=== PATIENT | male | born 1940 | race Caucasian/White ===

== ENCOUNTER 2017-06-25 16:20 | Observation (INO) | payer MEDICARE ==
[2017-06-25] MEDS ORDERED: DEXTROSE 40% GEL 15 GM TUBE PO PRN (18:09)
[2017-06-25] MEDS ORDERED: GLUCAGON,HUMAN RECOMB 1 MG INJ IM PRN (18:09)
[2017-06-25] MEDS ORDERED: DEXTROSE 40% GEL 15 GM TUBE X 2 PO PRN (18:09)
[2017-06-25] MEDS ORDERED: DEXTROSE 50%-WATER SYRINGE 12.5 GM/25 ML DOSE IV PRN (18:09)
[2017-06-25] MEDS ORDERED: DEXTROSE 50%-WATER SYRINGE 25 GM/50 ML DOSE IV PRN (18:09)
[2017-06-25 18:51] LABS: ABSOLUTE EOSINOPHILS # (AUTO) 0.1 10^3/uL (0.0-0.6); ABSOLUTE LYMPHOCYTES (AUTO) 2.4 10^3/uL (0.5-4.7); ABSOLUTE MONOCYTES (AUTO) 0.7 10^3/uL (0.1-1.4); ABSOLUTE NEUT (AUTO) 3.1 10^3/uL (1.7-8.2); BASOPHILS % (AUTO) 0.8 % (0-2); EOSINOPHILS % (AUTO) 1.6 % (0-6); HEMATOCRIT 43.7 % (37.9-51.0); HEMOGLOBIN 15.3 g/dL (13.5-17.0); HGB HCT DIFFERENCE 2.2; LYMPHOCYTES % (AUTO) 36.9 % (13-45); MEAN CORPUSCULAR HEMOGLOBIN 33.3 pg (27.0-33.4); MEAN CORPUSCULAR HGB CONC 35.1 g/dL (32.0-36.0); MEAN CORPUSCULAR VOLUME 95 fl (80-97); MONOCYTES % (AUTO) 11.2 % (3-13); RED BLOOD COUNT 4.59 10^6/uL (4.35-5.55); RED CELL DISTRIBUTION WIDTH 13.3 % (11.5-14.0); SEGMENTED NEUTROPHILS % (AUTO) 49.5 % (42-78); WHITE BLOOD COUNT 6.4 10^3/uL (4.0-10.5)
[2017-06-25 19:08] LABS: ALANINE AMINOTRANSFERASE 41 U/L (21-72); ALBUMIN 4.3 g/dL (3.5-5.0); ALKALINE PHOSPHATASE 58 U/L (38-126); ANION GAP 14 (5-19); ASPARTATE AMINO TRANSFERASE 22 U/L (17-59); BILIRUBIN,DIRECT 0.3 mg/dL (0.0-0.4); BILIRUBIN,TOTAL 0.7 mg/dL (0.2-1.3); BLOOD UREA NITROGEN 22 mg/dL (7-20); CALCIUM 9.7 mg/dL (8.4-10.2); CARBON DIOXIDE 24 mmol/L (22-30); CHLORIDE 102 mmol/L (98-107); CREATININE RESULT 0.87 mg/dL (0.52-1.25); GLUCOSE 169 mg/dL (75-110); POTASSIUM 4.5 mmol/L (3.6-5.0); SODIUM 139.5 mmol/L (137-145); TOTAL PROTEIN 6.9 g/dL (6.3-8.2)
[2017-06-25 19:25] LABS: FREE T3 3.31 pg/mL (2.77-5.27)
[2017-06-25 19:39] LABS: THYROID STIMULATING HORMONE 1.91 uIU/mL (0.47-4.68)
[2017-06-25] MEDS ORDERED: GLIPIZIDE PO SCH (21:15)
[2017-06-25] MEDS ORDERED: CANAGLIFLOZIN PO SCH (21:15)
[2017-06-25] MEDS ORDERED: METFORMIN HCL PO SCH ×2 (21:15)
[2017-06-25] MEDS ORDERED: [UNRECOGNIZED DRUG - OTHER] PO SCH (21:15)
[2017-06-25] MEDS ORDERED: METFORMIN HCL 500 MG TABLET PO ONE (21:30)
[2017-06-25] MEDS ORDERED: GLIPIZIDE 5 MG TABLET PO ONE (21:30)
[2017-06-25] MEDS ORDERED: CLOPIDOGREL BISULFATE 75 MG TABLET PO ONE (21:30)
[2017-06-25] MEDS ORDERED: SERTRALINE HCL 50 MG TABLET PO ONE (21:30)
[2017-06-25] MEDS ORDERED: LOSARTAN POTASSIUM 50 MG TABLET PO ONE (21:30)
[2017-06-25] MEDS ORDERED: ASPIRIN 81 MG TABLET, ENT COATED PO ONE (21:30)
[2017-06-25] MEDS ORDERED: TAMSULOSIN HCL 0.4 MG CAP.SR.24H PO ONE (21:30)
[2017-06-25] MEDS ORDERED: ATORVASTATIN CALCIUM 10 MG TABLET PO SCH (22:00)
[2017-06-25] MEDS ORDERED: PIOGLITAZONE HCL 15 MG TABLET PO ONE (22:00)
[2017-06-25] MEDS ORDERED: INSULIN GLARGINE,HUM.REC.ANLOG 300 UNIT/3 ML INSULN.PEN SUBCUT SCH (22:00)
--- NOTE | 2017-06-26 04:46 | EKG REPORT ---
SEVERITY:- ABNORMAL ECG - SINUS RHYTHM ATRIAL PREMATURE COMPLEX NONSPECIFIC INTRAVENTRICULAR CONDUCTION DELAY INFERIOR INFARCT, AGE INDETERMINATE CONSIDER ANTERIOR INFARCT : Confirmed by: Nivia Carreon MD 26-Jun-2017 04:26:54
[2017-06-26] MEDS: INSULIN LISPRO 100 UNIT/ML 3 ML VIAL SUBCUT PRN ×3 (07:43→16:44)
--- NOTE | 2017-06-26 08:57 | RADIOLOGY REPORT (SQ) ---
EXAM DESCRIPTION: CT HEAD WITHOUT COMPLETED DATE/TIME: 06/25/2017 8:51 pm REASON FOR STUDY: vertigo A88.1 EPIDEMIC VERTIGO COMPARISON: 07/04/2013, 07/06/2016 CT brain TECHNIQUE: Axial images acquired through the brain without intravenous contrast. Images reviewed wi th bone, brain and subdural windows. Images stored on PACS. All CT scanners at this facility use dose modulation, iterative reconstruction, and/or weight based d osing when appropriate to reduce radiation dose to as low as reasonably achievable (ALARA). [facility]: Dose Right [facility]: CareDose [facility]: Dose Right [facility]: Teradose 4D [facility]: [employer] RADIATION DOSE: Up-to-date CT equipment and radiation dose reduction techniques were employed. CTDIv ol: 64.6 mGy. DLP: 1163 mGy-cm. mGy. LIMITATIONS: None. FINDINGS: VENTRICLES: Normal size and contour. CEREBRUM: No masses. No hemorrhage. No midline shift. No evidence for acute infarction. Spotty low attenuation in the bifrontal and biparietal deep periventricular white matter from chronic small ves jacob ischemic change. Small chronic lacunar infarct left lon. CEREBELLUM: No masses. No hemorrhage. No alteration of density. No evidence for acute infarction. EXTRAAXIAL SPACES: No fluid collections. No masses. ORBITS AND GLOBE: No intra- or extraconal masses. Normal contour of globe without masses. CALVARIUM: No fracture. PARANASAL SINUSES: No fluid or mucosal thickening. SOFT TISSUES: No mass or hematoma. OTHER: No other significant finding. IMPRESSION: No acute intracranial changes, stable mild small vessel ischemic change. EVIDENCE OF ACUTE STROKE: NO. COMMENT: Quality ID # [id number]: Final reports with documentation of one or more dose reduction techniques (e.g., Automated exposure control, adjustment of the mA and/or kV according to patient size, use of iterative reconstruction technique) TECHNICAL DOCUMENTATION: JOB ID: [id number] [email or web address]- All Rights Reserved
[2017-06-26] MEDS ORDERED: METFORMIN HCL 500 MG TABLET PO SCH ×2 (10:00→22:00)
[2017-06-26] MEDS ORDERED: GLIPIZIDE 5 MG TABLET PO SCH ×2 (10:00→22:00)
[2017-06-26] MEDS ORDERED: ASPIRIN 81 MG TABLET, ENT COATED PO SCH ×2 (10:00→22:00)
[2017-06-26] MEDS ORDERED: TAMSULOSIN HCL 0.4 MG CAP.SR.24H PO SCH ×2 (10:00→22:00)
[2017-06-26] MEDS ORDERED: PIOGLITAZONE HCL 15 MG TABLET PO SCH ×2 (10:00→22:00)
[2017-06-26] MEDS ORDERED: SERTRALINE HCL 50 MG TABLET PO SCH ×2 (10:00→22:00)
[2017-06-26] MEDS ORDERED: LOSARTAN POTASSIUM 50 MG TABLET PO SCH ×2 (10:00→22:00)
[2017-06-26] MEDS ORDERED: CLOPIDOGREL BISULFATE 75 MG TABLET PO SCH ×2 (10:00→22:00)
--- NOTE | 2017-06-26 13:48 | RADIOLOGY REPORT (SQ) ---
EXAM DESCRIPTION: CAROTID DOPPLER COMPLETED DATE/TIME: 06/26/2017 11:08 am REASON FOR STUDY: vertigo A88.1 EPIDEMIC VERTIGO COMPARISON: CT brain 06/25/2017, 07/06/2016 CT cervical spine 07/06/2016 TECHNIQUE: Grayscale ultrasound, Doppler velocity and spectra, and color Doppler images acquired of the extra-cranial carotid and vertebral arteries. Images stored on PACS. LIMITATIONS: None. FINDINGS: RIGHT CAROTID CCA Velocities: Within normal limits. ICA Velocities Peak systolic 0.81 m/s. End diastolic 0.24 m/s. Proximal ICA/CCA peak systolic ratio 1.4. Spectra normal. Mixed calcific and noncalcific plaque is present at the carotid bifurcation, shadowi ng the origin of the right internal carotid artery. Immediately distal to the shadowing plaque, [place] suggest against flow significant stenosis. LEFT CAROTID CCA Velocities: Within normal limits. ICA Velocities Peak systolic 0.89 m/s. End diastolic 0.20 m/s. Proximal ICA/CCA peak systolic ratio 1.2. Spectra normal. Mixed calcific and non calcific plaque is present at the carotid bifurcation, shadow ing the origin of the left internal carotid artery. Immediately distal to the shadowing plaque, [place] suggest against flow significant stenosis. VERTEBRAL ARTERIES: Antegrade flow. Normal waveforms. SUBCLAVIAN ARTERIES: Not evaluated OTHER: No other significant finding. IMPRESSION: NO HEMODYNAMICALLY SIGNIFICANT STENOSIS. COMMENT: Quality ID #[id number]: Velocity criteria are extrapolated from the diameter data as defined by t he Society of Radiologists in Ultrasound Consensus Conference. Radiology 2003: 229; 340-346. TECHNICAL DOCUMENTATION: JOB ID: [id number] [employer]- All Rights Reserved
[2017-06-26 18:24] VITALS: BP 141/64
--- NOTE | 2017-06-26 20:52 | PDOC H&P ---
History of Present Illness Admission Date/PCP: 06/25/17 16:20 MAGALI LOTT MD History of Present Illness: MYRANDA BARKSDALE is a 77 year old male, He was brought to the office by his for evaluation of severe dizziness associated with gait abnormality. Patient stated that the surrounding was spinning and he is not able to walk or perform any activities of daily living, he felt drunk. I was concerned about the probability of a brainstem infarction, he was admitted for observation and evaluation of his symptoms. MRI is more sensitive in diagnosing brainstem infarction, unfortunately MRI of the brain could not be done in this patient because he has a pacemaker which contraindicates MRI. CT scan of the brain was done ,did not show any acute infarction of the brain, carotid Doppler was done there was no evidence of any hemodynamically significant stenosis. Past Medical History Cardiac Medical History: Reports: Coronary Artery Disease, Myocardial Infarction , Hyperlipidema, Hypertension, Peripheral Vascular Disease Endocrine Medical History: Reports: Diabetes Mellitus Type 2 Psychiatric Medical History: Reports: Dementia, Depression Past Surgical History Past Surgical History: Reports: Coronary Artery Bypass Graft Social History Smoking Status: Former Smoker Frequency of Alcohol Use: None Hx Recreational Drug Use: No Drugs: None Hx Prescription Drug Abuse: No Family History Family History: CAD Parental Family History Reviewed: Yes Children Family History Reviewed: Yes Sibling(s) Family History Reviewed.: Yes Medication/Allergy Home Medications: Aspirin [Aspirin EC] 81 mg PO DAILY 06/25/17 Atorvastatin Calcium [Lipitor 10 mg Tablet] 10 mg PO QHS 06/25/17 Canagliflozin/Metformin HCl [Invokamet Xr 50-500 mg Tablet] 1 tab PO DAILY 06/25 Clopidogrel Bisulfate [Plavix 75 mg Tablet] 75 mg PO DAILY 06/25/17 Glipizide/Metformin HCl [Glipizide-Metformin 5-500 mg] 2 tab PO DAILY 06/25/17 Insulin Glargine,Hum.rec.anlog [Lantus Solostar] 25 unit SQ QHS 06/25/17 Losartan Potassium [Cozaar 50 mg Tablet] 50 mg PO DAILY 06/25/17 Pioglitazone HCl [Actos 15 mg Tablet] 15 mg PO DAILY 06/25/17 Sertraline HCl [Zoloft 50 mg Tablet] 50 mg PO DAILY 06/25/17 Tamsulosin HCl [Flomax 0.4 mg Cap.sr] 0.4 mg PO DAILY 06/25/17 Meclizine HCl [Antivert 25 mg Tablet] 25 mg PO Q6H PRN #120 tablet 06/26/17 Allergies/Adverse Reactions: No Known Allergies Allergy (Verified 02/26/15 16:31) Review of Systems Constitutional: PRESENT: weakness Eyes: ABSENT: visual disturbances Ears: ABSENT: hearing changes Cardiovascular: ABSENT: as per HPI, chest pain, dyspnea on exertion, edema, orthropnea, palpitations, other Respiratory: ABSENT: cough, hemoptysis Gastrointestinal: ABSENT: abdominal pain, constipation, diarrhea, hematemesis, hematochezia, nausea, vomiting Genitourinary: ABSENT: dysuria, hematuria Musculoskeletal: ABSENT: joint swelling Integumentary: ABSENT: rash, wounds Neurological: PRESENT: abnormal gait, dizziness, frequent falls, lack of coordination, memory loss, vertigo Hematologic/Lymphatic: ABSENT: easy bleeding, easy bruising, lymphadenopathy Physical Exam Vital Signs: Temp Pulse Resp BP Pulse Ox 97.4 F 58 L 16 141/64 H 95 06/26/17 18:21 06/26/17 18:21 06/26/17 18:21 06/26/17 18:21 06/26/17 18:21 Intake & Output 06/25/17 06/26/17 06/27/17 06:59 06:59 06:59 Intake Total 1015 1075 Output Total 900 1300 Balance 115 -225 Weight 106 kg General appearance: PRESENT: no acute distress, well-developed, well-nourished Head exam: PRESENT: atraumatic, normocephalic Eye exam: PRESENT: conjunctiva pink, EOMI, PERRLA Ear exam: PRESENT: normal external ear exam Mouth exam: PRESENT: moist, tongue midline Neck exam: PRESENT: full ROM Cardiovascular exam: PRESENT: RRR, +S1, +S2 Pulses: PRESENT: normal dorsalis pedis pul, +2 pedal pulses bilateral Vascular exam: PRESENT: normal capillary refill GI/Abdominal exam: PRESENT: normal bowel sounds, soft Rectal exam: PRESENT: deferred Neurological exam: PRESENT: alert, awake, oriented to person, oriented to place , oriented to time, oriented to situation, CN II-XII grossly intact Psychiatric exam: PRESENT: appropriate affect, normal mood Skin exam: PRESENT: dry, intact, warm Results Laboratory Results: 06/25/17 18:21 06/25/17 18:21 Impressions: Head CT 06/25/17 17:46 IMPRESSION: No acute intracranial changes, stable mild small vessel ischemic change. EVIDENCE OF ACUTE STROKE: NO. Carotid Doppler Study 06/26/17 00:00 IMPRESSION: NO HEMODYNAMICALLY SIGNIFICANT STENOSIS. Assessment & Plan - Diagnosis (1) Abnormality of gait and mobility Is this a current diagnosis for this admission?: Yes Plan: The CAT scan of the head did not show any acute CVA patient will need assistive devices to prevent fall including a wheelchair, a 4 wheeled walker with a seat (2) Dementia Qualifiers: Dementia type: unspecified type Dementia behavioral disturbance: without behavioral disturbance Qualified Code(s): F03.90 - Unspecified dementia without behavioral disturbance (3) Coronary artery disease Qualifiers: Coronary Disease-Associated Artery/Lesion type: [place] artery [place] vs. transplanted heart: [place] heart Associated angina: without angina Qualified Code(s): I25.10 - Atherosclerotic heart disease of [place] coronary artery without angina pectoris Is this a current diagnosis for this admission?: Yes (4) Peripheral vascular disease Is this a current diagnosis for this admission?: Yes
--- NOTE | 2017-06-26 20:56 | PDOC DISCHARGE SUMMARY ---
General - Admit/Disc Date/PCP Admission Date/Primary Care Provider: 06/25/17 16:20 MAGALI LOTT MD Discharge Date: 06/26/17 - Discharge Diagnosis (1) Abnormality of gait and mobility Is this a current diagnosis for this admission?: Yes (3) Coronary artery disease Is this a current diagnosis for this admission?: Yes (4) Peripheral vascular disease Is this a current diagnosis for this admission?: Yes - Additional Information Discharge Diet: Diabetic Discharge Activity: Activity As Tolerated Home Medications: Aspirin [Aspirin EC] 81 mg PO DAILY 06/25/17 Atorvastatin Calcium [Lipitor 10 mg Tablet] 10 mg PO QHS 06/25/17 Canagliflozin/Metformin HCl [Invokamet Xr 50-500 mg Tablet] 1 tab PO DAILY 06/25 Clopidogrel Bisulfate [Plavix 75 mg Tablet] 75 mg PO DAILY 06/25/17 Glipizide/Metformin HCl [Glipizide-Metformin 5-500 mg] 2 tab PO DAILY 06/25/17 Insulin Glargine,Hum.rec.anlog [Lantus Solostar] 25 unit SQ QHS 06/25/17 Losartan Potassium [Cozaar 50 mg Tablet] 50 mg PO DAILY 06/25/17 Pioglitazone HCl [Actos 15 mg Tablet] 15 mg PO DAILY 06/25/17 Sertraline HCl [Zoloft 50 mg Tablet] 50 mg PO DAILY 06/25/17 Tamsulosin HCl [Flomax 0.4 mg Cap.sr] 0.4 mg PO DAILY 06/25/17 Meclizine HCl [Antivert 25 mg Tablet] 25 mg PO Q6H PRN #120 tablet 06/26/17 History of Present Illness History of Present Illness: MYRANDA BARKSDALE is a 77 year old male, He was brought to the office by his for evaluation of severe dizziness associated with gait abnormality. Patient stated that the surrounding was spinning and he is not able to walk or perform any activities of daily living, he felt drunk. I was concerned about the probability of a brainstem infarction, he was admitted for observation and evaluation of his symptoms. MRI is more sensitive in diagnosing brainstem infarction, unfortunately MRI of the brain could not be done in this patient because he has a pacemaker which contraindicates MRI. CT scan of the brain was done ,did not show any acute infarction of the brain, carotid Doppler was done there was no evidence of any hemodynamically significant stenosis. Hospital Course Hospital Course: Patient was admitted for evaluation of gait abnormality CT scan of the head was negative, patient was prescribed assistive devices including a wheelchair walker with a seat ,home health for physical therapy.He was given prescription for meclizine for the vertigo Physical Exam Vital Signs: Temp Pulse Resp BP Pulse Ox 97.4 F 58 L 16 141/64 H 95 06/26/17 18:21 06/26/17 18:21 06/26/17 18:21 06/26/17 18:21 06/26/17 18:21 Intake & Output 06/25/17 06/26/17 06/27/17 06:59 06:59 06:59 Intake Total 1015 1075 Output Total 900 1300 Balance 115 -225 Weight 106 kg General appearance: PRESENT: no acute distress Eye exam: PRESENT: PERRLA Respiratory exam: PRESENT: clear to auscultation farnaz Cardiovascular exam: PRESENT: +S1, +S2 GI/Abdominal exam: PRESENT: soft Neurological exam: PRESENT: alert, CN II-XII grossly intact Results Laboratory Results: 06/25/17 18:21 06/25/17 18:21 Impressions: Head CT 06/25/17 17:46 IMPRESSION: No acute intracranial changes, stable mild small vessel ischemic change. EVIDENCE OF ACUTE STROKE: NO. Carotid Doppler Study 06/26/17 00:00 IMPRESSION: NO HEMODYNAMICALLY SIGNIFICANT STENOSIS.
[2017-06-27] MEDS ORDERED: INSULIN GLARGINE,HUM.REC.ANLOG 300 UNIT/3 ML INSULN.PEN SUBCUT SCH (08:00)
== END 2017-06-26 18:45 | disposition home health service (06) ==
LOC: 3N 16:20
PROVIDERS: ADMIT Internal Medicine; ATTEND Internal Medicine
DX: R27.9 Unspecified lack of coordination (principal); I25.10 Atherosclerotic heart disease of native coronary artery without angina pectoris; I73.9 Peripheral vascular disease, unspecified; I25.2 Old myocardial infarction; E78.5 Hyperlipidemia, unspecified; R53.1 Weakness; R29.6 Repeated falls; F03.90 Unspecified dementia, unspecified severity, without behavioral disturbance, psychotic disturbance, mood disturbance, and anxiety; Z79.899 Other long term (current) drug therapy; Z95.0 Presence of cardiac pacemaker; Z95.1 Presence of aortocoronary bypass graft; Z82.49 Family history of ischemic heart disease and other diseases of the circulatory system; Z87.891 Personal history of nicotine dependence; Z79.02 Long term (current) use of antithrombotics/antiplatelets; Z79.82 Long term (current) use of aspirin; Z79.4 Long term (current) use of insulin
CPT/HCPCS: 36415; 84439; 82962; 84443; 85025; 80053; 84481; 83036; 93880; 70450; 93005; 93010; G0378 ×2; A9270 ×11; J1815; J3490

== ENCOUNTER 2017-06-27 17:48 | Inpatient (IN) | payer MEDICARE ==
[~2017-06-27 17:48] MED LIST: EPINEPHRINE INJ 1 MG/10 ML DISP.SYRIN ONE
[2017-06-27] MEDS ORDERED: ONDANSETRON 4 MG TAB.RAPDIS SL ONE (18:24)
--- NOTE | 2017-06-27 18:26 | ER Document Report ---
ED Medical Screen (RME) - General Chief Complaint: Weakness Stated Complaint: VOMITING, WEAKNESS Time Seen by Provider: 06/27/17 18:04 Mode of Arrival: Wheelchair Information source: Patient, Relative TRAVEL OUTSIDE OF THE [place] IN LAST 30 DAYS: No - HPI Patient complains to provider of: dizziness, nausea, vomiting Notes: 06/27/17 18:28 Patient is a 77-year-old male who is brought to the emergency room by EMS for ongoing dizziness with nausea and vomiting, he was admitted to the hospital yesterday for evaluation of this, had normal CT head and carotid Doppler findings and was discharged home with meclizine, his symptoms have worsened, in triage area noted a slight left-sided facial droop which his reports is new and she had not noticed prior to me pointing it out, therefore patient was upgraded to a triage level 2 and made a stroke alert - Related Data Allergies/Adverse Reactions: No Known Allergies Allergy (Verified 06/27/17 17:53) Past Medical History - Past Medical History Cardiac Medical History: Reports: Hx Coronary Artery Disease, Hx Heart Attack, Hx Hypercholesterolemia, Hx Hypertension, Hx Peripheral Vascular Disease Endocrine Medical History: Reports: Hx Diabetes Mellitus Type 2 Renal/ Medical History: Reports: Hx Kidney Stones. Denies: Hx Peritoneal Dialysis Psychiatric Medical History: Reports: Hx Dementia, Hx Depression Past Surgical History: Reports: Hx Coronary Artery Bypass Graft - Immunizations Immunizations up to date: Yes Hx Diphtheria, Pertussis, Tetanus Vaccination: - unk Physical Exam - Vital signs Vitals: Temp Pulse Resp BP Pulse Ox 97.7 F 61 22 H 168/53 H 98 06/27/17 17:54 06/27/17 17:54 06/27/17 17:54 06/27/17 17:54 06/27/17 17:54 Course - Vital Signs Vital signs: Temp Pulse Resp BP Pulse Ox 97.7 F 61 22 H 168/53 H 98 06/27/17 17:54 06/27/17 17:54 06/27/17 17:54 06/27/17 17:54 06/27/17 17:54
--- NOTE | 2017-06-27 18:56 | RADIOLOGY REPORT (SQ) ---
EXAM DESCRIPTION: CT HEAD WITHOUT COMPLETED DATE/TIME: 06/27/2017 6:36 pm REASON FOR STUDY: left facial droop COMPARISON: 06/25/2017 TECHNIQUE: Axial images acquired through the brain without intravenous contrast. Images reviewed wi th bone, brain and subdural windows. Images stored on PACS. All CT scanners at this facility use dose modulation, iterative reconstruction, and/or weight based d osing when appropriate to reduce radiation dose to as low as reasonably achievable (ALARA). [facility]: Dose Right [facility]: CareDose [facility]: Dose Right [facility]: Teradose 4D [facility]: [employer] RADIATION DOSE: Up-to-date CT equipment and radiation dose reduction techniques were employed. CTDIv ol: 64.6 mGy. DLP: 1034 mGy-cm. mGy. LIMITATIONS: None. FINDINGS: VENTRICLES: Prominent ventricles secondary to involutional atrophy. CEREBRUM: No masses. No hemorrhage. No midline shift. No evidence for acute infarction. Normal gra y/white matter differentiation. No areas of low density in the white matter. Cortical atrophy is pre sent. CEREBELLUM: No masses. No hemorrhage. No alteration of density. No evidence for acute infarction. EXTRAAXIAL SPACES: No fluid collections. No masses. ORBITS AND GLOBE: No intra- or extraconal masses. Normal contour of globe without masses. CALVARIUM: No fracture. PARANASAL SINUSES: No fluid or mucosal thickening. SOFT TISSUES: No mass or hematoma. OTHER: No other significant finding. IMPRESSION: Involutional changes of aging with no acute intracranial pathology. EVIDENCE OF ACUTE STROKE: NO. COMMENT: Findings were discussed with the ordering physician at 1850 hours on this date. Quality ID # [id number]: Final reports with documentation of one or more dose reduction techniques (e.g., Au tomated exposure control, adjustment of the mA and/or kV according to patient size, use of iterative reconstruction technique) TECHNICAL DOCUMENTATION: JOB ID: [id number] [email or web address]- All Rights Reserved
--- NOTE | 2017-06-27 18:57 | RADIOLOGY REPORT (SQ) ---
EXAM DESCRIPTION: CHEST SINGLE VIEW COMPLETED DATE/TIME: 06/27/2017 6:41 pm REASON FOR STUDY: left facial droop COMPARISON: 07/06/2016 EXAM PARAMETERS: NUMBER OF VIEWS: One view. TECHNIQUE: Single frontal radiographic view of the chest acquired. RADIATION DOSE: NA LIMITATIONS: None. FINDINGS: LUNGS AND PLEURA: Low lung volumes. No infiltrate or effusion. No mass. MEDIASTINUM AND HILAR STRUCTURES: No masses. Contour normal. HEART AND VASCULAR STRUCTURES: Cardiomegaly with pulmonary vascular congestion but no pulmonary edema . BONES: No acute findings. HARDWARE: Pacemaker. OTHER: No other significant finding. IMPRESSION: Cardiomegaly without CHF. TECHNICAL DOCUMENTATION: JOB ID: [id number]
[2017-06-27 19:11] LABS: PARTIAL THROMBOPLASTIN TIME 27.1 SEC (23.5-35.8)
[2017-06-27 19:19] LABS: ALANINE AMINOTRANSFERASE 37 U/L (21-72); ALBUMIN 4.9 g/dL (3.5-5.0); ALKALINE PHOSPHATASE 74 U/L (38-126); ASPARTATE AMINO TRANSFERASE 30 U/L (17-59); BILIRUBIN,DIRECT 0.4 mg/dL (0.0-0.4); BILIRUBIN,TOTAL 1.2 mg/dL (0.2-1.3); BLOOD UREA NITROGEN 23 mg/dL (7-20); CALCIUM 10.5 mg/dL (8.4-10.2); CHLORIDE 103 mmol/L (98-107); CREATINE KINASE 116 U/L (55-170); CREATININE RESULT 0.93 mg/dL (0.52-1.25); GLUCOSE 211 mg/dL (75-110); POTASSIUM 4.5 mmol/L (3.6-5.0)
[2017-06-27 19:26] LABS: PROTHROMBIN TIME 13.3 SEC (11.4-15.4)
[2017-06-27 19:28] LABS: CARBON DIOXIDE 15 mmol/L (22-30); SODIUM 138.1 mmol/L (137-145)
[2017-06-27 19:31] LABS: CREATINE KINASE MB 0.64 ng/mL (<4.55)
[2017-06-27 19:33] LABS: ANION GAP 20 (5-19); TROPONIN I < 0.012 ng/mL
[2017-06-27 19:39] LABS: ABSOLUTE MONOCYTES (AUTO) 0.7 10^3/uL (0.1-1.4); ABSOLUTE NEUT (AUTO) 7.1 10^3/uL (1.7-8.2); BASOPHILS % (AUTO) 0.3 % (0-2); EOSINOPHILS % (AUTO) 0.3 % (0-6); HEMOGLOBIN 17.1 g/dL (13.5-17.0); HGB HCT DIFFERENCE 1.3; MEAN CORPUSCULAR HEMOGLOBIN 32.4 pg (27.0-33.4); MEAN CORPUSCULAR HGB CONC 34.2 g/dL (32.0-36.0); MEAN CORPUSCULAR VOLUME 95 fl (80-97); MONOCYTES % (AUTO) 6.8 % (3-13); RED BLOOD COUNT 5.28 10^6/uL (4.35-5.55); RED CELL DISTRIBUTION WIDTH 13.3 % (11.5-14.0); SEGMENTED NEUTROPHILS % (AUTO) 72.6 % (42-78); WHITE BLOOD COUNT 9.8 10^3/uL (4.0-10.5)
--- NOTE | 2017-06-27 20:07 | ER Document Report ---
ED General - General Chief Complaint: Weakness Stated Complaint: VOMITING, WEAKNESS Time Seen by Provider: 06/27/17 18:04 Mode of Arrival: Wheelchair Cannot obtain history due to: Dementia Notes: Patient is a 77-year-old male with several months of persistent vertigo who again presents today with symptoms of vertigo, nausea, vomiting and gait instability. Patient was just discharged from the hospital yesterday for the same complaint. He has had persistence of symptoms over the last several months and has unfortunately been unable to have an MRI due to a pacemaker. Patient states that he has been trying meclizine at home without any improvement. The patient himself is a very poor historian secondary to dementia but his at the bedside reports that normally the patient is at least able to ambulate with assistance but he has been completely unable to walk today. He is also been unable to tolerate oral intake apparently secondary to nausea from the vertigo. He has denied any new or different symptoms today other than that the vertigo is worse than normal. History is otherwise limited secondary to patient's dementia. TRAVEL OUTSIDE OF THE [place] IN LAST 30 DAYS: No - Related Data Allergies/Adverse Reactions: No Known Allergies Allergy (Verified 06/27/17 17:53) Home Medications: Current Home Medications Aspirin [Aspirin 81 mg Chewable Tablet] 81 mg PO QPM 06/27/17 [History] Atorvastatin Calcium [Lipitor 10 mg Tablet] 10 mg PO QPM 06/27/17 [History] Canagliflozin/Metformin HCl [Invokamet Xr 50-500 mg Tablet] 1 each PO QAM [History] Clopidogrel Bisulfate [Plavix 75 mg Tablet] 75 mg PO QPM 06/27/17 [History] Glipizide/Metformin HCl [Glipizide-Metformin 5-500 Mg] 2 each PO QPM 06/27/17 [ History] Insulin Glargine,Hum.rec.anlog [Lantus Solostar] 25 unit SQ QAM 06/27/17 [ History] Losartan Potassium [Cozaar 50 mg Tablet] 50 mg PO QPM 06/27/17 [History] Meclizine HCl [Antivert 25 mg Tablet] 25 mg PO Q6HP PRN 06/27/17 [History] Pioglitazone HCl [Actos 15 mg Tablet] 15 mg PO QPM 06/27/17 [History] Sertraline HCl [Zoloft 50 mg Tablet] 50 mg PO QPM 06/27/17 [History] Tamsulosin HCl [Flomax 0.4 mg Cap.sr] 0.4 mg PO QPM 06/27/17 [History] Triamcinolone Acetonide [Triamcinolone Acetonide] 1 applic TOP DAILYP PRN [History] Past Medical History - General Information source: Patient, Relative - Social History Smoking Status: Never Smoker Frequency of alcohol use: None Drug Abuse: None Lives with: Spouse/Significant other Family History: Reviewed & Not Pertinent, CAD - Past Medical History Cardiac Medical History: Reports: Hx Coronary Artery Disease, Hx Heart Attack, Hx Hypercholesterolemia, Hx Hypertension, Hx Peripheral Vascular Disease Endocrine Medical History: Reports: Hx Diabetes Mellitus Type 2 Renal/ Medical History: Reports: Hx Kidney Stones. Denies: Hx Peritoneal Dialysis Psychiatric Medical History: Reports: Hx Dementia, Hx Depression Past Surgical History: Reports: Hx Coronary Artery Bypass Graft - Immunizations Immunizations up to date: Yes Hx Diphtheria, Pertussis, Tetanus Vaccination: - unk Hx Pneumococcal Vaccination: 01/23/12 Review of Systems - Review of Systems Notes: Constitutional: Negative for fever. HENT: Negative for sore throat. Eyes: Negative for visual changes. Cardiovascular: Negative for chest pain. Respiratory: Negative for shortness of breath. Gastrointestinal: Positive for nausea and vomiting Genitourinary: Negative for dysuria. Musculoskeletal: Negative for back pain. Skin: Negative for rash. Neurological: Positive for vertigo 10 point ROS negative except as marked above and in HPI. Physical Exam - Vital signs Vitals: Temp Pulse Resp BP Pulse Ox 97.7 F 61 22 H 168/53 H 98 06/27/17 17:54 06/27/17 17:54 06/27/17 17:54 06/27/17 17:54 06/27/17 17:54 Interpretation: Hypertensive Notes: PHYSICAL EXAMINATION: GENERAL: Well-appearing, well-nourished and in no acute distress. HEAD: Atraumatic, normocephalic. EYES: Pupils equal round and reactive to light, extraocular movements intact, sclera anicteric, conjunctiva are normal. ENT: nares patent, oropharynx clear without exudates. Moist mucous membranes. NECK: Normal range of motion, supple without lymphadenopathy LUNGS: Breath sounds clear to auscultation bilaterally and equal. No wheezes rales or rhonchi. HEART: Regular rate and rhythm without murmurs ABDOMEN: Soft, nontender, normoactive bowel sounds. No guarding, no rebound. No masses appreciated. EXTREMITIES: Normal range of motion, no pitting or edema. No cyanosis. NEUROLOGICAL: Face symmetric. Tongue protrudes midline. Extraocular motions intact. Pupils are 2 mm and equally reactive. Normal speech, unable to even stand up next to the bed without assistance. 5 out of 5 strength in both the distal and proximal upper and lower extremities bilaterally. Sensation is grossly intact throughout. Dysmetria with both finger to nose testing and heel to decker testing. PSYCH: Alert, oriented to person only SKIN: Warm, Dry, normal turgor, no rashes or lesions noted. Course - Re-evaluation Re-evalutation: 06/27/17 20:06 Patient presents with ongoing ataxia, fails finger to nose testing bilaterally, unable to ambulate and having vomiting secondary to vertigo. Patient was just discharged from the hospital yesterday and apparently became worse today. However his symptoms been ongoing chronically for at least 4 months. I suspect the patient has had a cerebellar stroke and we cannot appropriately visualize this using CT imaging given the poor visualization of the posterior fossa. Unfortunately patient cannot have an MRI due to a pacemaker that is noncompatible. However given the patient is not able to ambulate or tolerate oral intake even water at this time and his is only one who is at home with him caring for him, I do not believe it is safe for patient to be discharged home. I believe that he does require hospitalization and transfer to a [facility] facility for long-term rehabilitation and consideration of long-term placement. Will discuss with Dr. Campbell for admission - Vital Signs Vital signs: Temp Pulse Resp BP Pulse Ox 97.7 F 65 19 125/65 96 06/27/17 17:54 06/27/17 21:00 06/27/17 23:00 06/27/17 22:41 06/27/17 23:00 - Laboratory Result Diagrams: 06/27/17 18:45 06/27/17 18:45 Laboratory results interpreted by me: 06/27/17 06/27/17 18:45 18:45 Hgb 17.1 H Carbon Dioxide 15 L Anion Gap 20 H BUN 23 H Glucose 211 H Calcium 10.5 H - Diagnostic Test Radiology reviewed: Image reviewed, Reports reviewed Radiology results interpreted by me: 06/28/17 02:04 CT head: No acute intracranial bleed - EKG Interpretation by Me Additional EKG results interpreted by me: 06/28/17 02:05 Sinus rhythm. Rate 63. No ST elevations or depressions. QTC is 426. Discharge - Discharge Clinical Impression: Abnormality of gait and mobility, Vertigo, Persistent vomiting Condition: Fair Disposition: ADMITTED INPATIENT Admitting Provider: [facility] Unit Admitted: [facility]
[2017-06-27] MEDS ORDERED: MECLIZINE HCL 25 MG TABLET PO PRN (21:51)
[2017-06-27] MEDS ORDERED: TRIAMCINOLONE ACETONIDE TOP PRN (21:51)
[2017-06-27] MEDS ORDERED: DEXTROSE 40% GEL 15 GM TUBE PO PRN ×2 (21:53)
[2017-06-27] MEDS ORDERED: GLUCAGON,HUMAN RECOMB 1 MG INJ IM PRN (21:53)
[2017-06-27] MEDS ORDERED: DEXTROSE 50%-WATER 25 GM/50 ML DISP.SYRIN IV PRN ×2 (21:53)
[2017-06-27] MEDS ORDERED: ASPIRIN 81 MG TABLET, CHEWABLE PO ONE (22:00)
[2017-06-28] MEDS ORDERED: ONDANSETRON HCL INJ/PF 4 MG/2 ML SDV ONE (04:14)
[2017-06-28] MEDS ORDERED: ONDANSETRON HCL INJ/PF 4 MG/2 ML SDV IV PRN (04:14)
[2017-06-28] MEDS ORDERED: CANAGLIFLOZIN PO SCH (08:00)
[2017-06-28] MEDS ORDERED: METFORMIN HCL PO SCH (08:00)
[2017-06-28] MEDS ORDERED: [UNRECOGNIZED DRUG - OTHER] PO SCH (08:00)
--- NOTE | 2017-06-28 09:03 | EKG REPORT ---
SEVERITY:- ABNORMAL ECG - SINUS RHYTHM MULTIPLE ATRIAL PREMATURE COMPLEXES NONSPECIFIC INTRAVENTRICULAR CONDUCTION DELAY INFERIOR INFARCT, AGE INDETERMINATE ANTERIOR INFARCT, AGE INDETERMINATE : Confirmed by: Nivia Carreon MD 28-Jun-2017 09:03:22
[2017-06-28] MEDS: ENOXAPARIN SODIUM INJ 40 MG/0.4 ML DISP.SYRIN SUBCUT SCH (09:48)
[2017-06-28] MEDS: INSULIN GLARGINE,HUM.REC.ANLOG 300 UNIT/3 ML INSULN.PEN SUBCUT SCH (09:56)
[2017-06-28] MEDS ORDERED: ENOXAPARIN SODIUM INJ 30 MG/0.3 ML DISP.SYRIN SUBCUT ONE (10:00)
[2017-06-28 10:14] LABS: CHOLESTEROL 301.31 mg/dL (0-200); Direct HDL 46 mg/dL (>40); TRIGLYCERIDES 238 mg/dL (<150)
[2017-06-28 10:24] LABS: DIRECT LDL 233 mg/dL (<100)
[2017-06-28 10:32] LABS: VLDL CHOLESTEROL 47.6 mg/dL (10-31)
[2017-06-28] MEDS: INSULIN LISPRO 100 UNIT/ML 3 ML VIAL SUBCUT PRN ×2 (13:13→17:25)
[2017-06-28] MEDS: PIOGLITAZONE HCL 15 MG TABLET PO SCH (17:22)
[2017-06-28] MEDS: SERTRALINE HCL 50 MG TABLET PO SCH (17:25)
[2017-06-28] MEDS: LOSARTAN POTASSIUM 50 MG TABLET PO SCH (17:25)
[2017-06-28] MEDS: TAMSULOSIN HCL 0.4 MG CAP.SR.24H PO SCH (17:25)
[2017-06-28] MEDS: ATORVASTATIN CALCIUM 10 MG TABLET PO SCH (17:26)
[2017-06-28] MEDS: ASPIRIN 81 MG TABLET, CHEWABLE PO SCH (17:26)
--- NOTE | 2017-06-28 20:37 | PDOC H&P ---
History of Present Illness Admission Date/PCP: 06/27/17 20:51 MAGALI LOTT MD History of Present Illness: MYRANDA BARKSDALE is a 77 year old male.He came to the emergency room, for evaluation of symptoms and signs of ataxia with gait impairment, blurred vision , altered hand coordination and tremor with movement patient symptom is progressive and symmetrical the onset is subacute in nature there is associated vertigo. He was brought to the emergency room by his spouse because this past who no longer take care of him is constantly falling and is not able to keep any food down with differential vomiting. I Admitted this patient initially on 06/26/2017 directly from the office when he presented with gait abnormality, vertigo, and ataxia, I suspected cerebellar infarction, he was admitted into the hospital for evaluation I did a CAT scan of the brain and it was negative for any acute infarction or any space-occupying lesion. MRI is more sensitive in diagnosing cerebellar infarct especially in the posterior cerebellum but patient have a pacemaker and MRI could not be obtained. He was evaluated and discharged home at the time he was admitted for observation. The other differential diagnosis needs to be from cerebellar ataxia is vertiginous ataxia a gait disorder associated with severe degree of dizziness, lightheadedness or the perception of movements because he had these symptoms of vertigo this seems to be more suggestive of vertiginous ataxia.. Past Medical History Cardiac Medical History: Reports: Coronary Artery Disease, Myocardial Infarction , Hyperlipidema, Hypertension, Peripheral Vascular Disease Endocrine Medical History: Reports: Diabetes Mellitus Type 2 Psychiatric Medical History: Reports: Dementia, Depression Past Surgical History Past Surgical History: Reports: Coronary Artery Bypass Graft Social History Lives with: Spouse/Significant other Smoking Status: Former Smoker Frequency of Alcohol Use: None Hx Recreational Drug Use: No Drugs: None Hx Prescription Drug Abuse: No Family History Family History: Reviewed & Not Pertinent, CAD Parental Family History Reviewed: Yes Children Family History Reviewed: Yes Sibling(s) Family History Reviewed.: Yes Medication/Allergy Home Medications: Aspirin [Aspirin 81 mg Chewable Tablet] 81 mg PO QPM 06/27/17 Atorvastatin Calcium [Lipitor 10 mg Tablet] 10 mg PO QPM 06/27/17 Canagliflozin/Metformin HCl [Invokamet Xr 50-500 mg Tablet] 1 each PO QAM Clopidogrel Bisulfate [Plavix 75 mg Tablet] 75 mg PO QPM 06/27/17 Glipizide/Metformin HCl [Glipizide-Metformin 5-500 Mg] 2 each PO QPM 06/27/17 Insulin Glargine,Hum.rec.anlog [Lantus Solostar] 25 unit SQ QAM 06/27/17 Losartan Potassium [Cozaar 50 mg Tablet] 50 mg PO QPM 06/27/17 Meclizine HCl [Antivert 25 mg Tablet] 25 mg PO Q6HP PRN 06/27/17 Pioglitazone HCl [Actos 15 mg Tablet] 15 mg PO QPM 06/27/17 Sertraline HCl [Zoloft 50 mg Tablet] 50 mg PO QPM 06/27/17 Tamsulosin HCl [Flomax 0.4 mg Cap.sr] 0.4 mg PO QPM 06/27/17 Triamcinolone Acetonide [Triamcinolone Acetonide] 1 applic TOP DAILYP PRN Allergies/Adverse Reactions: No Known Allergies Allergy (Verified 06/27/17 17:53) Review of Systems Constitutional: PRESENT: headache(s), weakness Eyes: ABSENT: visual disturbances Ears: ABSENT: hearing changes Nose, Mouth, and Throat: ABSENT: as per HPI, headache(s), mouth pain, sore throat, vertigo, other Cardiovascular: ABSENT: as per HPI, chest pain, dyspnea on exertion, edema, orthropnea, palpitations, other Respiratory: ABSENT: cough, hemoptysis Gastrointestinal: PRESENT: vomiting Genitourinary: ABSENT: dysuria, hematuria Musculoskeletal: ABSENT: joint swelling Integumentary: ABSENT: rash, wounds Neurological: PRESENT: abnormal gait, abnormal speech, confusion, dizziness, frequent falls, lack of coordination, memory loss, paresthesias, tingling, tremor(s), vertigo, weakness Psychiatric: ABSENT: anxiety, depression, homidical ideation, suicidal ideation Endocrine: ABSENT: cold intolerance, heat intolerance, menstrual abnormalities, polydipsia, polyuria Hematologic/Lymphatic: ABSENT: easy bleeding, easy bruising, lymphadenopathy Physical Exam Vital Signs: Temp Pulse Resp BP Pulse Ox 97.7 F 66 16 110/62 99 06/28/17 15:01 06/28/17 16:00 06/28/17 16:00 06/28/17 16:00 06/28/17 16:00 Intake & Output 10/01/0806/28/17 06/29/17 06:59 06:59 06:59 Intake Total 300 Output Total 500 Balance -200 Weight 92.5 kg 92 kg General appearance: PRESENT: mild distress Head exam: PRESENT: atraumatic, normocephalic Eye exam: PRESENT: conjunctiva pink, EOMI, PERRLA Ear exam: PRESENT: normal external ear exam Mouth exam: PRESENT: moist, tongue midline Neck exam: PRESENT: full ROM Cardiovascular exam: PRESENT: RRR, +S1, +S2, systolic murmur Pulses: PRESENT: normal dorsalis pedis pul, +2 pedal pulses bilateral Vascular exam: PRESENT: normal capillary refill GI/Abdominal exam: PRESENT: normal bowel sounds, soft Rectal exam: PRESENT: deferred Neurological exam: PRESENT: alert, reflexes normal, abnormal gait, ataxia, motor sensory deficit - He has weakness of the lower extremities the power of the left leg is 3 /5 Psychiatric exam: PRESENT: appropriate affect, normal mood Skin exam: PRESENT: dry, intact, warm Results Laboratory Results: 06/28/17 09:44 Triglycerides 238 H Cholesterol 301.31 H LDL Cholesterol Direct 233 H VLDL Cholesterol 47.6 H HDL Cholesterol 46 Impressions: Chest X-Ray 06/27/17 18:24 IMPRESSION: Cardiomegaly without CHF. Head CT 06/27/17 18:24 IMPRESSION: Involutional changes of aging with no acute intracranial pathology. EVIDENCE OF ACUTE STROKE: NO. Assessment & Plan - Diagnosis (1) Cerebellar infarction Is this a current diagnosis for this admission?: Yes Plan: Patient symptoms and signs suggest cerebellar infarction, unfortunately MRI of the brain could not be done because he has a pacemaker. CT scan of the head was done, that was negative for any acute pathology. Patient have focal, lateralizing signs of weakness, gait abnormality tremors poor coordination ataxia. He be managed as a case of cerebellar infarction because clinically it is highly suggestive. (4) Coronary artery disease Qualifiers: Coronary Disease-Associated Artery/Lesion type: [place] artery [place] vs. transplanted heart: [place] heart Associated angina: without angina Qualified Code(s): I25.10 - Atherosclerotic heart disease of [place] coronary artery without angina pectoris (6) Type 2 diabetes mellitus Qualifiers: Diabetes mellitus complication status: without complication Diabetes mellitus longterm insulin use: with adjunct faculty for medical terminology use Qualified Code(s): E11.9 - Type 2 diabetes mellitus without complications Is this a current diagnosis for this admission?: Yes
[2017-06-28 22:05] LABS: CREATINE KINASE MB 1.17 ng/mL (<4.55)
[2017-06-28 22:06] LABS: TROPONIN I < 0.012 ng/mL
[2017-06-29 05:13] LABS: HEMOGLOBIN 15.7 g/dL (13.5-17.0); HGB HCT DIFFERENCE 2.1; MEAN CORPUSCULAR HEMOGLOBIN 33.3 pg (27.0-33.4); MEAN CORPUSCULAR VOLUME 95 fl (80-97); RED BLOOD COUNT 4.73 10^6/uL (4.35-5.55); RED CELL DISTRIBUTION WIDTH 13.5 % (11.5-14.0); WHITE BLOOD COUNT 9.4 10^3/uL (4.0-10.5)
[2017-06-29 05:33] LABS: ALANINE AMINOTRANSFERASE 43 U/L (21-72); ALKALINE PHOSPHATASE 58 U/L (38-126); ANION GAP 12 (5-19); ASPARTATE AMINO TRANSFERASE 25 U/L (17-59); BILIRUBIN,DIRECT 0.5 mg/dL (0.0-0.4); BILIRUBIN,TOTAL 1.4 mg/dL (0.2-1.3); BLOOD UREA NITROGEN 23 mg/dL (7-20); CALCIUM 9.6 mg/dL (8.4-10.2); CARBON DIOXIDE 18 mmol/L (22-30); CHLORIDE 107 mmol/L (98-107); CHOLESTEROL 236.28 mg/dL (0-200); CREATININE RESULT 0.91 mg/dL (0.52-1.25); Direct HDL 33 mg/dL (>40); GLUCOSE 182 mg/dL (75-110); POTASSIUM 3.7 mmol/L (3.6-5.0); SODIUM 136.5 mmol/L (137-145); TOTAL PROTEIN 6.8 g/dL (6.3-8.2); TRIGLYCERIDES 263 mg/dL (<150)
[2017-06-29 05:44] LABS: DIRECT LDL 173 mg/dL (<100)
[2017-06-29 05:47] LABS: VLDL CHOLESTEROL 52.6 mg/dL (10-31)
[2017-06-29 07:40] LABS: APPEARANCE,URINE CLEAR; BILIRUBIN,URINE NEGATIVE (NEGATIVE); GLUCOSE, URINE >=500 mg/dL (NEGATIVE); KETONES,URINE TRACE mg/dL (NEGATIVE); LEUKOCYTE ESTERASE,URINE NEGATIVE (NEGATIVE); NITRITE,URINE NEGATIVE (NEGATIVE); PROTEIN,URINE NEGATIVE (NEGATIVE); URINE SPECIFIC GRAVITY 1.016; UROBILINOGEN,URINE NEGATIVE mg/dL (<2.0)
[2017-06-29] MEDS: INSULIN GLARGINE,HUM.REC.ANLOG 300 UNIT/3 ML INSULN.PEN SUBCUT SCH (08:03)
[2017-06-29] MEDS: INSULIN LISPRO 100 UNIT/ML 3 ML VIAL SUBCUT PRN ×3 (08:03→23:01)
[2017-06-29] MEDS ORDERED: ENOXAPARIN SODIUM INJ 30 MG/0.3 ML DISP.SYRIN SUBCUT SCH (10:00)
[2017-06-29] MEDS: ENOXAPARIN SODIUM INJ 40 MG/0.4 ML DISP.SYRIN SUBCUT SCH ×2 (11:33→11:34)
[2017-06-29] MEDS: SERTRALINE HCL 50 MG TABLET PO SCH (17:55)
[2017-06-29] MEDS: ATORVASTATIN CALCIUM 10 MG TABLET PO SCH (17:55)
[2017-06-29] MEDS: LOSARTAN POTASSIUM 50 MG TABLET PO SCH (17:55)
[2017-06-29] MEDS: TAMSULOSIN HCL 0.4 MG CAP.SR.24H PO SCH (17:55)
[2017-06-29] MEDS: ASPIRIN 81 MG TABLET, CHEWABLE PO SCH (17:55)
[2017-06-29] MEDS: PIOGLITAZONE HCL 15 MG TABLET PO SCH (17:56)
--- NOTE | 2017-06-29 23:47 | PDOC PROGRESS REPORT ---
Subjective Progress Note for:: 06/29/17 Subjective:: Patient was seen by the bedside was admitted because of cerebellar infarction this could not be confirmed on MRI because he has a pacemaker but the symptoms and signs suggest cerebellar infarction presently being managed according to stroke protocol.He was seen by physical therapy Physical Exam Vital Signs: Temp Pulse Resp BP Pulse Ox 98.2 F 60 16 140/66 H 96 06/29/17 19:51 06/29/17 19:51 06/29/17 19:51 06/29/17 19:51 06/29/17 19:51 Intake & Output 06/28/17 06/29/17 06/30/17 06:59 06:59 06:59 Intake Total 540 600 Output Total 200 Balance 340 600 Weight 132 kg 98 kg General appearance: PRESENT: no acute distress Eye exam: PRESENT: PERRLA Respiratory exam: PRESENT: clear to auscultation farnaz Cardiovascular exam: PRESENT: +S1, +S2 GI/Abdominal exam: PRESENT: soft Neurological exam: PRESENT: alert, CN II-XII grossly intact Results Laboratory Results: 06/29/17 04:05 06/29/17 04:05 06/29/17 06/29/17 06/29/17 04:05 04:05 06:29 WBC 9.4 RBC 4.73 Hgb 15.7 Hct 45.0 MCV 95 MCH 33.3 MCHC 35.0 RDW 13.5 Plt Count 221 Sodium 136.5 L Potassium 3.7 Chloride 107 Carbon Dioxide 18 L Anion Gap 12 BUN 23 H Creatinine 0.91 Est GFR ( Amer) > 60 Est GFR (Non-Af Amer) > 60 Glucose 182 H Calcium 9.6 Total Bilirubin 1.4 H AST 25 ALT 43 Alkaline Phosphatase 58 Total Protein 6.8 Albumin 4.0 Triglycerides 263 H Cholesterol 236.28 H LDL Cholesterol Direct 173 H VLDL Cholesterol 52.6 H HDL Cholesterol 33 L Urine Color YELLOW Urine Appearance CLEAR Urine pH 6.0 Ur Specific Colon 1.016 Urine Protein NEGATIVE Urine Glucose (UA) >=500 H Urine Ketones TRACE H Urine Blood NEGATIVE Urine Nitrite NEGATIVE Ur Leukocyte Esterase NEGATIVE Urine WBC (Auto) 1 Urine RBC (Auto) 1 06/28/17 06/28/17 21:05 21:05 Creatine Kinase 210 H CK-MB (CK-2) 1.17 Troponin I < 0.012 Impressions: Chest X-Ray 06/27/17 18:24 IMPRESSION: Cardiomegaly without CHF. Head CT 06/27/17 18:24 IMPRESSION: Involutional changes of aging with no acute intracranial pathology. EVIDENCE OF ACUTE STROKE: NO. Assessment & Plan - Diagnosis (1) Cerebellar infarction Is this a current diagnosis for this admission?: Yes (2) Dementia Qualifiers: Dementia type: Alzheimer's disease Alzheimer's disease onset: unspecified onset Dementia behavioral disturbance: without behavioral disturbance Qualified Code(s): G30.9 - Alzheimer's disease, unspecified; F02.80 - Dementia in other diseases classified elsewhere without behavioral disturbance; F02.80 - Dementia in other diseases classified elsewhere without behavioral disturbance; F02.80 - Dementia in other diseases classified elsewhere without behavioral disturbance Is this a current diagnosis for this admission?: Yes (3) Fall Qualifiers: Encounter type: subsequent encounter Qualified Code(s): W19.XXXD - Unspecified fall, subsequent encounter Is this a current diagnosis for this admission?: Yes (4) Coronary artery disease Qualifiers: Coronary Disease-Associated Artery/Lesion type: [place] artery [place] vs. transplanted heart: [place] heart Associated angina: without angina Qualified Code(s): I25.10 - Atherosclerotic heart disease of [place] coronary artery without angina pectoris Is this a current diagnosis for this admission?: Yes (6) Type 2 diabetes mellitus Qualifiers: Diabetes mellitus complication status: without complication Diabetes mellitus local company intermodal truck driver insulin use: with skilled nursing use Qualified Code(s): E11.9 - Type 2 diabetes mellitus without complications Is this a current diagnosis for this admission?: Yes - Plan Summary Plan Summary: Continue present treatment thank you
[2017-06-30 05:37] LABS: HEMATOCRIT 43.9 % (37.9-51.0); HEMOGLOBIN 15.2 g/dL (13.5-17.0); HGB HCT DIFFERENCE 1.7; MEAN CORPUSCULAR HEMOGLOBIN 33.1 pg (27.0-33.4); MEAN CORPUSCULAR HGB CONC 34.7 g/dL (32.0-36.0); MEAN CORPUSCULAR VOLUME 96 fl (80-97); RED CELL DISTRIBUTION WIDTH 13.5 % (11.5-14.0); WHITE BLOOD COUNT 7.3 10^3/uL (4.0-10.5)
[2017-06-30 06:02] LABS: ALANINE AMINOTRANSFERASE 41 U/L (21-72); ALBUMIN 3.8 g/dL (3.5-5.0); ALKALINE PHOSPHATASE 60 U/L (38-126); ANION GAP 12 (5-19); ASPARTATE AMINO TRANSFERASE 24 U/L (17-59); BILIRUBIN,DIRECT 0.4 mg/dL (0.0-0.4); BILIRUBIN,TOTAL 1.3 mg/dL (0.2-1.3); BLOOD UREA NITROGEN 18 mg/dL (7-20); CALCIUM 9.4 mg/dL (8.4-10.2); CARBON DIOXIDE 17 mmol/L (22-30); CHLORIDE 109 mmol/L (98-107); CREATININE RESULT 0.79 mg/dL (0.52-1.25); GLUCOSE 186 mg/dL (75-110); POTASSIUM 3.8 mmol/L (3.6-5.0); SODIUM 137.6 mmol/L (137-145); TOTAL PROTEIN 6.5 g/dL (6.3-8.2)
[2017-06-30] MEDS: ENOXAPARIN SODIUM INJ 40 MG/0.4 ML DISP.SYRIN SUBCUT SCH (09:11)
[2017-06-30] MEDS: INSULIN GLARGINE,HUM.REC.ANLOG 300 UNIT/3 ML INSULN.PEN SUBCUT SCH (09:13)
[2017-06-30] MEDS: INSULIN LISPRO 100 UNIT/ML 3 ML VIAL SUBCUT PRN ×3 (09:14→17:14)
[2017-06-30] MEDS: ASPIRIN 81 MG TABLET, CHEWABLE PO SCH (17:13)
[2017-06-30] MEDS: LOSARTAN POTASSIUM 50 MG TABLET PO SCH (17:13)
[2017-06-30] MEDS: TAMSULOSIN HCL 0.4 MG CAP.SR.24H PO SCH (17:14)
[2017-06-30] MEDS: SERTRALINE HCL 50 MG TABLET PO SCH (17:14)
[2017-06-30] MEDS: ATORVASTATIN CALCIUM 10 MG TABLET PO SCH (17:14)
[2017-06-30] MEDS: PIOGLITAZONE HCL 15 MG TABLET PO SCH (17:15)
--- NOTE | 2017-06-30 17:51 | PDOC PROGRESS REPORT ---
Subjective Progress Note for:: 06/30/17 Subjective:: Out of bed in [facility]. Denied any chest pain or difficulty with breathing. Spouse reported significant snoring and history of sleep apnea. Patient do have his home CPAP machine delivered to him today and plan to use it tonight. No nausea, vomiting,or abdominal pain. Physical Exam Vital Signs: Temp Pulse Resp BP Pulse Ox 97.9 F 58 L 20 152/70 H 96 06/30/17 15:48 06/30/17 15:48 06/30/17 15:48 06/30/17 15:48 06/30/17 15:48 Intake & Output 06/29/17 06/30/17 07/01/17 06:59 06:59 06:59 Intake Total 540 1944 342 Output Total 200 200 Balance 340 1944 142 Weight 132 kg 94 kg General appearance: PRESENT: no acute distress, cooperative, obese Head exam: PRESENT: atraumatic, normocephalic Eye exam: PRESENT: conjunctiva pink, EOMI, PERRLA. ABSENT: scleral icterus Mouth exam: PRESENT: moist Respiratory exam: PRESENT: clear to auscultation farnaz, decreased breath sounds Cardiovascular exam: PRESENT: RRR. ABSENT: diastolic murmur, rubs, systolic murmur GI/Abdominal exam: PRESENT: normal bowel sounds, soft. ABSENT: distended, guarding, mass, organolmegaly, rebound, tenderness Extremities exam: ABSENT: pedal edema Neurological exam: PRESENT: alert, awake, oriented to person, oriented to place , oriented to time, oriented to situation, CN II-XII grossly intact. ABSENT: motor sensory deficit Psychiatric exam: PRESENT: appropriate affect, normal mood. ABSENT: homicidal ideation, suicidal ideation Skin exam: PRESENT: dry, intact, warm. ABSENT: cyanosis, rash Results Laboratory Results: 06/30/17 04:53 06/30/17 04:53 06/30/17 06/30/17 04:53 04:53 WBC 7.3 RBC 4.60 Hgb 15.2 Hct 43.9 MCV 96 MCH 33.1 MCHC 34.7 RDW 13.5 Plt Count 207 Sodium 137.6 Potassium 3.8 Chloride 109 H Carbon Dioxide 17 L Anion Gap 12 BUN 18 Creatinine 0.79 Est GFR ( Amer) > 60 Est GFR (Non-Af Amer) > 60 Glucose 186 H Calcium 9.4 Total Bilirubin 1.3 AST 24 ALT 41 Alkaline Phosphatase 60 Total Protein 6.5 Albumin 3.8 06/28/17 06/28/17 21:05 21:05 Creatine Kinase 210 H CK-MB (CK-2) 1.17 Troponin I < 0.012 Impressions: Chest X-Ray 06/27/17 18:24 IMPRESSION: Cardiomegaly without CHF. Head CT 06/27/17 18:24 IMPRESSION: Involutional changes of aging with no acute intracranial pathology. EVIDENCE OF ACUTE STROKE: NO. Assessment & Plan - Diagnosis (1) Cerebellar infarction Is this a current diagnosis for this admission?: Yes Plan: See covering attending physician orders. (2) Fall Qualifiers: Encounter type: subsequent encounter Qualified Code(s): W19.XXXD - Unspecified fall, subsequent encounter Is this a current diagnosis for this admission?: Yes Plan: See covering attending physician orders. (3) Coronary artery disease Qualifiers: Coronary Disease-Associated Artery/Lesion type: [place] artery [place] vs. transplanted heart: [place] heart Associated angina: without angina Qualified Code(s): I25.10 - Atherosclerotic heart disease of [place] coronary artery without angina pectoris Is this a current diagnosis for this admission?: Yes (4) Type 2 diabetes mellitus with hyperglycemia Qualifiers: Diabetes mellitus [facility]ci insulin use: unspecified exterminator termite insulin use status Qualified Code(s): E11.65 - Type 2 diabetes mellitus with hyperglycemia Is this a current diagnosis for this admission?: Yes Plan: See covering attending physician orders. (5) Abnormality of gait and mobility Is this a current diagnosis for this admission?: Yes Plan: See covering attending physician orders. - Time Time Spent with patient: 25-34 minutes Medications reviewed and adjusted accordingly: Yes Anticipated discharge: Home with Homehealth Within: Other - Inpatient Certification Based on my medical assessment, after consideration of the patient's comorbidities, presenting symptoms, or acuity I expect that the services needed warrant INPATIENT care.: Yes I certify that my determination is in accordance with my understanding of Medicare's requirements for reasonable and necessary INPATIENT services [42 CFR 412.3e].: Yes Medical Necessity: Need Close Monitoring Due to Risk of Patient Decompensation, Need For IV Fluids, Need For Continuous Telemetry Monitoring, Risk of Complication if Not Cared For in Hospital Post Hospital Care: D/C Industrial Education Teacher Documentation - Plan Summary Plan Summary: See covering attending physician orders.
[2017-07-01 06:02] LABS: HEMATOCRIT 44.2 % (37.9-51.0); HEMOGLOBIN 14.9 g/dL (13.5-17.0); HGB HCT DIFFERENCE 0.5; MEAN CORPUSCULAR HEMOGLOBIN 32.5 pg (27.0-33.4); MEAN CORPUSCULAR HGB CONC 33.8 g/dL (32.0-36.0); MEAN CORPUSCULAR VOLUME 96 fl (80-97); RED CELL DISTRIBUTION WIDTH 13.4 % (11.5-14.0); WHITE BLOOD COUNT 6.9 10^3/uL (4.0-10.5)
[2017-07-01 06:19] LABS: ALANINE AMINOTRANSFERASE 47 U/L (21-72); ALBUMIN 3.6 g/dL (3.5-5.0); ALKALINE PHOSPHATASE 56 U/L (38-126); ANION GAP 10 (5-19); ASPARTATE AMINO TRANSFERASE 24 U/L (17-59); BILIRUBIN,DIRECT 0.3 mg/dL (0.0-0.4); BILIRUBIN,TOTAL 1.1 mg/dL (0.2-1.3); BLOOD UREA NITROGEN 18 mg/dL (7-20); CALCIUM 9.3 mg/dL (8.4-10.2); CARBON DIOXIDE 20 mmol/L (22-30); CHLORIDE 109 mmol/L (98-107); CREATININE RESULT 0.79 mg/dL (0.52-1.25); GLUCOSE 214 mg/dL (75-110); POTASSIUM 4.2 mmol/L (3.6-5.0); SODIUM 139.4 mmol/L (137-145); TOTAL PROTEIN 6.1 g/dL (6.3-8.2)
[2017-07-01] MEDS: INSULIN GLARGINE,HUM.REC.ANLOG 300 UNIT/3 ML INSULN.PEN SUBCUT SCH (07:43)
[2017-07-01] MEDS: INSULIN LISPRO 100 UNIT/ML 3 ML VIAL SUBCUT PRN ×4 (07:43→23:01)
[2017-07-01] MEDS: ENOXAPARIN SODIUM INJ 40 MG/0.4 ML DISP.SYRIN SUBCUT SCH (09:03)
[2017-07-01] MEDS: PIOGLITAZONE HCL 15 MG TABLET PO SCH (17:04)
[2017-07-01] MEDS: SERTRALINE HCL 50 MG TABLET PO SCH (17:04)
[2017-07-01] MEDS: TAMSULOSIN HCL 0.4 MG CAP.SR.24H PO SCH (17:05)
[2017-07-01] MEDS: LOSARTAN POTASSIUM 50 MG TABLET PO SCH (17:05)
[2017-07-01] MEDS: ATORVASTATIN CALCIUM 10 MG TABLET PO SCH (17:05)
[2017-07-01] MEDS: ASPIRIN 81 MG TABLET, CHEWABLE PO SCH (17:05)
--- NOTE | 2017-07-01 17:18 | PDOC PROGRESS REPORT ---
Subjective Progress Note for:: 07/01/17 Subjective:: No chest pain and difficulty with breathing. No nausea, vomiting,or abdominal pain. No fever or chills. Physical Exam Vital Signs: Temp Pulse Resp BP Pulse Ox 98.3 F 59 L 18 147/70 H 97 07/01/17 15:46 07/01/17 15:46 07/01/17 15:46 07/01/17 15:46 07/01/17 15:46 Intake & Output 06/30/17 07/01/17 07/02/17 06:59 06:59 06:59 Intake Total 1944 2717 222 Output Total 1150 775 Balance 1944 1567 -553 Weight 94 kg 94 kg Physical Exam: General appearance: PRESENT: no acute distress, cooperative, obese Head exam: PRESENT: atraumatic, normocephalic Eye exam: PRESENT: conjunctiva pink, EOMI, PERRLA. ABSENT: scleral icterus Mouth exam: PRESENT: moist Respiratory exam: PRESENT: clear to auscultation farnaz, decreased breath sounds Cardiovascular exam: PRESENT: RRR. ABSENT: diastolic murmur, rubs, systolic murmur GI/Abdominal exam: PRESENT: normal bowel sounds, soft. ABSENT: distended, guarding, mass, organomegaly, rebound, tenderness Extremities exam: ABSENT: pedal edema Neurological exam: PRESENT: alert, awake, oriented to person, oriented to place , oriented to time, oriented to situation, CN II-XII grossly intact. ABSENT: motor sensory deficit Psychiatric exam: PRESENT: appropriate affect, normal mood. ABSENT: homicidal ideation, suicidal ideation Skin exam: PRESENT: dry, intact, warm. ABSENT: cyanosis, rash Results Laboratory Results: 07/01/17 05:07 07/01/17 05:07 07/01/17 07/01/17 05:07 05:07 WBC 6.9 RBC 4.60 Hgb 14.9 Hct 44.2 MCV 96 MCH 32.5 MCHC 33.8 RDW 13.4 Plt Count 199 Sodium 139.4 Potassium 4.2 Chloride 109 H Carbon Dioxide 20 L Anion Gap 10 BUN 18 Creatinine 0.79 Est GFR ( Amer) > 60 Est GFR (Non-Af Amer) > 60 Glucose 214 H Calcium 9.3 Total Bilirubin 1.1 AST 24 ALT 47 Alkaline Phosphatase 56 Total Protein 6.1 L Albumin 3.6 06/28/17 06/28/17 21:05 21:05 Creatine Kinase 210 H CK-MB (CK-2) 1.17 Troponin I < 0.012 Impressions: Chest X-Ray 06/27/17 18:24 IMPRESSION: Cardiomegaly without CHF. Head CT 06/27/17 18:24 IMPRESSION: Involutional changes of aging with no acute intracranial pathology. EVIDENCE OF ACUTE STROKE: NO. Assessment & Plan - Diagnosis (1) Cerebellar infarction Is this a current diagnosis for this admission?: Yes (2) Fall Qualifiers: Encounter type: subsequent encounter Qualified Code(s): W19.XXXD - Unspecified fall, subsequent encounter Is this a current diagnosis for this admission?: Yes (3) Coronary artery disease Qualifiers: Coronary Disease-Associated Artery/Lesion type: [place] artery [place] vs. transplanted heart: [place] heart Associated angina: without angina Qualified Code(s): I25.10 - Atherosclerotic heart disease of [place] coronary artery without angina pectoris Is this a current diagnosis for this admission?: Yes (4) Type 2 diabetes mellitus with hyperglycemia Qualifiers: Diabetes mellitus snf insulin use: unspecified snf insulin use status Qualified Code(s): E11.65 - Type 2 diabetes mellitus with hyperglycemia Is this a current diagnosis for this admission?: Yes (5) Abnormality of gait and mobility Is this a current diagnosis for this admission?: Yes - Time Time Spent with patient: 25-34 minutes Medications reviewed and adjusted accordingly: Yes Anticipated discharge: SNF - for short term rehabilitation Within: Other - Inpatient Certification Based on my medical assessment, after consideration of the patient's comorbidities, presenting symptoms, or acuity I expect that the services needed warrant INPATIENT care.: Yes I certify that my determination is in accordance with my understanding of Medicare's requirements for reasonable and necessary INPATIENT services [42 CFR 412.3e].: Yes Medical Necessity: Need Close Monitoring Due to Risk of Patient Decompensation, Need For Continuous Telemetry Monitoring, Need for IV Antibiotics, Risk of Complication if Not Cared For in Hospital Post Hospital Care: D/C or Transfer Summary - Plan Summary Plan Summary: Continue on all current medication management. Restart on Invokamet XR therapy for better glycemic control.
[2017-07-02] MEDS: INSULIN GLARGINE,HUM.REC.ANLOG 300 UNIT/3 ML INSULN.PEN SUBCUT SCH (08:37)
[2017-07-02] MEDS: NORMAL SALINE 1000 ML 1,000 ML IV PRN (08:48)
[2017-07-02] MEDS: ENOXAPARIN SODIUM INJ 40 MG/0.4 ML DISP.SYRIN SUBCUT SCH (11:27)
[2017-07-02] MEDS: INSULIN LISPRO 100 UNIT/ML 3 ML VIAL SUBCUT PRN ×2 (13:11→17:10)
[2017-07-02] MEDS: TAMSULOSIN HCL 0.4 MG CAP.SR.24H PO SCH (17:10)
[2017-07-02] MEDS: LOSARTAN POTASSIUM 50 MG TABLET PO SCH (17:11)
[2017-07-02] MEDS: PIOGLITAZONE HCL 15 MG TABLET PO SCH (17:11)
[2017-07-02] MEDS: ATORVASTATIN CALCIUM 10 MG TABLET PO SCH (17:11)
[2017-07-02] MEDS: ASPIRIN 81 MG TABLET, CHEWABLE PO SCH (17:12)
[2017-07-02] MEDS: SERTRALINE HCL 50 MG TABLET PO SCH (17:15)
--- NOTE | 2017-07-02 19:24 | PDOC PROGRESS REPORT ---
Subjective Progress Note for:: 07/02/17 Subjective:: Patient was seen by the bedside, the plan is [facility] Physical Exam Vital Signs: Temp Pulse Resp BP Pulse Ox 98.6 F 59 L 20 115/50 L 97 07/02/17 15:31 07/02/17 15:31 07/02/17 15:31 07/02/17 15:31 07/02/17 15:31 Intake & Output 07/01/17 07/02/17 07/03/17 06:59 06:59 06:59 Intake Total 2717 2060 1638 Output Total 1150 1475 700 Balance 1567 585 938 Weight 94 kg 98.5 kg General appearance: PRESENT: no acute distress Eye exam: PRESENT: PERRLA Respiratory exam: PRESENT: clear to auscultation farnaz Cardiovascular exam: PRESENT: +S1, +S2 GI/Abdominal exam: PRESENT: soft Neurological exam: PRESENT: alert Results Laboratory Results: 07/01/17 05:07 07/01/17 05:07 06/28/17 06/28/17 21:05 21:05 Creatine Kinase 210 H CK-MB (CK-2) 1.17 Troponin I < 0.012 Impressions: Chest X-Ray 06/27/17 18:24 IMPRESSION: Cardiomegaly without CHF. Head CT 06/27/17 18:24 IMPRESSION: Involutional changes of aging with no acute intracranial pathology. EVIDENCE OF ACUTE STROKE: NO. Assessment & Plan - Diagnosis (1) Cerebellar infarction Is this a current diagnosis for this admission?: Yes (2) Dementia Qualifiers: Dementia type: Alzheimer's disease Alzheimer's disease onset: unspecified onset Dementia behavioral disturbance: without behavioral disturbance Qualified Code(s): G30.9 - Alzheimer's disease, unspecified; F02.80 - Dementia in other diseases classified elsewhere without behavioral disturbance; F02.80 - Dementia in other diseases classified elsewhere without behavioral disturbance; F02.80 - Dementia in other diseases classified elsewhere without behavioral disturbance Is this a current diagnosis for this admission?: Yes (3) Fall Qualifiers: Encounter type: subsequent encounter Qualified Code(s): W19.XXXD - Unspecified fall, subsequent encounter Is this a current diagnosis for this admission?: Yes (4) Coronary artery disease Qualifiers: Coronary Disease-Associated Artery/Lesion type: [place] artery [place] vs. transplanted heart: [place] heart Associated angina: without angina Qualified Code(s): I25.10 - Atherosclerotic heart disease of [place] coronary artery without angina pectoris Is this a current diagnosis for this admission?: Yes (6) Type 2 diabetes mellitus Qualifiers: Diabetes mellitus complication status: without complication Diabetes mellitus material handler loader insulin use: with material handler loader use Qualified Code(s): E11.9 - Type 2 diabetes mellitus without complications Is this a current diagnosis for this admission?: Yes
[2017-07-03] MEDS: INSULIN LISPRO 100 UNIT/ML 3 ML VIAL SUBCUT PRN ×3 (08:20→17:36)
[2017-07-03] MEDS: INSULIN GLARGINE,HUM.REC.ANLOG 300 UNIT/3 ML INSULN.PEN SUBCUT SCH (08:20)
[2017-07-03 11:26] LABS: HEMATOCRIT 43.9 % (37.9-51.0); HEMOGLOBIN 15.2 g/dL (13.5-17.0); HGB HCT DIFFERENCE 1.7; MEAN CORPUSCULAR HEMOGLOBIN 32.8 pg (27.0-33.4); MEAN CORPUSCULAR HGB CONC 34.6 g/dL (32.0-36.0); MEAN CORPUSCULAR VOLUME 95 fl (80-97); RED BLOOD COUNT 4.63 10^6/uL (4.35-5.55); RED CELL DISTRIBUTION WIDTH 13.3 % (11.5-14.0); WHITE BLOOD COUNT 10.4 10^3/uL (4.0-10.5)
[2017-07-03] MEDS: ENOXAPARIN SODIUM INJ 40 MG/0.4 ML DISP.SYRIN SUBCUT SCH (11:49)
[2017-07-03] MEDS: NORMAL SALINE 1000 ML 1,000 ML IV PRN (12:06)
[2017-07-03] MEDS: ATORVASTATIN CALCIUM 10 MG TABLET PO SCH (17:36)
[2017-07-03] MEDS: PIOGLITAZONE HCL 15 MG TABLET PO SCH (17:36)
[2017-07-03] MEDS: SERTRALINE HCL 50 MG TABLET PO SCH (17:36)
[2017-07-03] MEDS: TAMSULOSIN HCL 0.4 MG CAP.SR.24H PO SCH (17:37)
[2017-07-03] MEDS: LOSARTAN POTASSIUM 50 MG TABLET PO SCH (17:37)
[2017-07-03] MEDS: ASPIRIN 81 MG TABLET, CHEWABLE PO SCH (17:40)
--- NOTE | 2017-07-03 20:55 | PDOC PROGRESS REPORT ---
Subjective Progress Note for:: 07/03/17 Subjective:: Patient was seen by the bedside, he had episode of rectal bleed today it was fresh blood suggesting a low GI bleed, the differential diagnosis would include diverticular bleed, angiodysplasia, hemorrhoids, intraluminal lesion, neoplasm though unlikely GI consultation will be requested for possible colonoscopy before discharge to a skilled nursing for rehabilitation. The plan is to transfer to skilled nursing for rehabilitation. Physical Exam Vital Signs: Temp Pulse Resp BP Pulse Ox 98.7 F 62 16 148/53 H 96 07/03/17 16:46 07/03/17 16:46 07/03/17 16:46 07/03/17 16:46 07/03/17 16:46 Intake & Output 07/02/17 07/03/17 07/04/17 06:59 06:59 06:59 Intake Total 2060 2238 1141 Output Total 1475 1885 350 Balance 585 353 791 Weight 98.5 kg 98 kg 98 kg General appearance: PRESENT: no acute distress, well-developed, well-nourished Head exam: PRESENT: atraumatic, normocephalic Eye exam: PRESENT: conjunctiva pink, EOMI, PERRLA Ear exam: PRESENT: normal external ear exam Mouth exam: PRESENT: moist, tongue midline Neck exam: PRESENT: full ROM Respiratory exam: PRESENT: clear to auscultation farnaz Cardiovascular exam: PRESENT: RRR, +S1, +S2 Pulses: PRESENT: normal dorsalis pedis pul, +2 pedal pulses bilateral Vascular exam: PRESENT: normal capillary refill GI/Abdominal exam: PRESENT: normal bowel sounds, soft Rectal exam: PRESENT: deferred Neurological exam: PRESENT: alert, CN II-XII grossly intact Psychiatric exam: PRESENT: appropriate affect, normal mood. ABSENT: homicidal ideation, suicidal ideation Skin exam: PRESENT: dry, intact, warm Results Laboratory Results: 07/03/17 11:00 07/01/17 05:07 07/03/17 11:00 WBC 10.4 RBC 4.63 Hgb 15.2 Hct 43.9 MCV 95 MCH 32.8 MCHC 34.6 RDW 13.3 Plt Count 203 06/28/17 06/28/17 21:05 21:05 Creatine Kinase 210 H CK-MB (CK-2) 1.17 Troponin I < 0.012 Impressions: Chest X-Ray 06/27/17 18:24 IMPRESSION: Cardiomegaly without CHF. Head CT 06/27/17 18:24 IMPRESSION: Involutional changes of aging with no acute intracranial pathology. EVIDENCE OF ACUTE STROKE: NO. Assessment & Plan - Diagnosis (1) Cerebellar infarction Is this a current diagnosis for this admission?: Yes (2) Dementia Qualifiers: Dementia type: Alzheimer's disease Alzheimer's disease onset: unspecified onset Dementia behavioral disturbance: without behavioral disturbance Qualified Code(s): G30.9 - Alzheimer's disease, unspecified; F02.80 - Dementia in other diseases classified elsewhere without behavioral disturbance; F02.80 - Dementia in other diseases classified elsewhere without behavioral disturbance; F02.80 - Dementia in other diseases classified elsewhere without behavioral disturbance Is this a current diagnosis for this admission?: Yes (3) Fall Qualifiers: Encounter type: subsequent encounter Qualified Code(s): W19.XXXD - Unspecified fall, subsequent encounter Is this a current diagnosis for this admission?: Yes (4) Coronary artery disease Qualifiers: Coronary Disease-Associated Artery/Lesion type: [place] artery [place] vs. transplanted heart: [place] heart Associated angina: without angina Qualified Code(s): I25.10 - Atherosclerotic heart disease of [place] coronary artery without angina pectoris Is this a current diagnosis for this admission?: Yes (6) Type 2 diabetes mellitus Qualifiers: Diabetes mellitus complication status: without complication Diabetes mellitus care home insulin use: with care home use Qualified Code(s): E11.9 - Type 2 diabetes mellitus without complications Is this a current diagnosis for this admission?: Yes (7) Rectal bleed Is this a current diagnosis for this admission?: Yes Plan: GI consultation is obtained
[2017-07-04 05:33] LABS: HEMOGLOBIN 15.2 g/dL (13.5-17.0); HGB HCT DIFFERENCE 0.6; MEAN CORPUSCULAR HEMOGLOBIN 32.5 pg (27.0-33.4); MEAN CORPUSCULAR HGB CONC 33.8 g/dL (32.0-36.0); MEAN CORPUSCULAR VOLUME 96 fl (80-97); RED BLOOD COUNT 4.68 10^6/uL (4.35-5.55); RED CELL DISTRIBUTION WIDTH 13.5 % (11.5-14.0); WHITE BLOOD COUNT 12.7 10^3/uL (4.0-10.5)
[2017-07-04 05:52] LABS: ALANINE AMINOTRANSFERASE 48 U/L (21-72); ALBUMIN 4.2 g/dL (3.5-5.0); ALKALINE PHOSPHATASE 67 U/L (38-126); ANION GAP 12 (5-19); ASPARTATE AMINO TRANSFERASE 20 U/L (17-59); BILIRUBIN,DIRECT 0.4 mg/dL (0.0-0.4); BILIRUBIN,TOTAL 1.3 mg/dL (0.2-1.3); BLOOD UREA NITROGEN 18 mg/dL (7-20); CALCIUM 9.6 mg/dL (8.4-10.2); CARBON DIOXIDE 24 mmol/L (22-30); CHLORIDE 102 mmol/L (98-107); CREATININE RESULT 0.88 mg/dL (0.52-1.25); GLUCOSE 231 mg/dL (75-110); POTASSIUM 4.6 mmol/L (3.6-5.0); SODIUM 138.3 mmol/L (137-145); TOTAL PROTEIN 6.9 g/dL (6.3-8.2)
[2017-07-04] MEDS: INSULIN LISPRO 100 UNIT/ML 3 ML VIAL SUBCUT PRN ×3 (08:22→17:40)
[2017-07-04] MEDS: INSULIN GLARGINE,HUM.REC.ANLOG 300 UNIT/3 ML INSULN.PEN SUBCUT SCH (08:22)
--- NOTE | 2017-07-04 11:17 | PDOC CONSULTATION ---
Consultation Consult Date: 07/04/17 Attending physician:: DALI SANTIAGO Consult reason:: rectal bleeding History of Present Illness Admission Date/PCP: 06/28/17 20:39 MAGALI LOTT MD History of Present Illness: i was asked to see this patient by dr Blount. patient experienced rectal bleeding Hgb seems stable has never had a colonoscopy patient denies any abdominal pain states has some underlying constipation Attending requesting colonoscopy prior to transfer to [facility] spoke with patient he seems willing to proceed he denies having a family history of colon cancer Past Medical History Cardiac Medical History: Reports: Coronary Artery Disease, Myocardial Infarction , Hyperlipidema, Hypertension, Peripheral Vascular Disease Endocrine Medical History: Reports: Diabetes Mellitus Type 2 Psychiatric Medical History: Reports: Dementia, Depression Past Surgical History Past Surgical History: Reports: Coronary Artery Bypass Graft Social History Lives with: Spouse/Significant other Smoking Status: Former Smoker Frequency of Alcohol Use: None Hx Recreational Drug Use: No Drugs: None Hx Prescription Drug Abuse: No Family History Family History: Reviewed & Not Pertinent, CAD Parental Family History Reviewed: Yes Children Family History Reviewed: Unknown Sibling(s) Family History Reviewed.: Unknown Medication/Allergy Home Medications: Aspirin [Aspirin 81 mg Chewable Tablet] 81 mg PO QPM 06/27/17 Atorvastatin Calcium [Lipitor 10 mg Tablet] 10 mg PO QPM 06/27/17 Canagliflozin/Metformin HCl [Invokamet Xr 50-500 mg Tablet] 1 each PO QAM Clopidogrel Bisulfate [Plavix 75 mg Tablet] 75 mg PO QPM 06/27/17 Glipizide/Metformin HCl [Glipizide-Metformin 5-500 Mg] 2 each PO QPM 06/27/17 Insulin Glargine,Hum.rec.anlog [Lantus Solostar] 25 unit SQ QAM 06/27/17 Losartan Potassium [Cozaar 50 mg Tablet] 50 mg PO QPM 06/27/17 Meclizine HCl [Antivert 25 mg Tablet] 25 mg PO Q6HP PRN 06/27/17 Pioglitazone HCl [Actos 15 mg Tablet] 15 mg PO QPM 06/27/17 Sertraline HCl [Zoloft 50 mg Tablet] 50 mg PO QPM 06/27/17 Tamsulosin HCl [Flomax 0.4 mg Cap.sr] 0.4 mg PO QPM 06/27/17 Triamcinolone Acetonide [Triamcinolone Acetonide] 1 applic TOP DAILYP PRN Allergies/Adverse Reactions: No Known Allergies Allergy (Verified 06/27/17 17:53) Review of Systems Constitutional: PRESENT: weakness. ABSENT: fever(s), night sweats Eyes: ABSENT: visual disturbances Ears: ABSENT: hearing changes Nose, Mouth, and Throat: ABSENT: mouth pain Cardiovascular: ABSENT: as per HPI, orthropnea, palpitations Respiratory: PRESENT: dyspnea. ABSENT: hemoptysis Gastrointestinal: PRESENT: hematochezia. ABSENT: coffee ground emesis, diarrhea , dysphagia, nausea, vomiting Genitourinary: ABSENT: dysuria, hematuria Musculoskeletal: ABSENT: deformity, joint swelling Integumentary: ABSENT: lesions Neurological: PRESENT: frequent falls, tingling. ABSENT: syncope, tremor(s), vertigo Endocrine: ABSENT: polydipsia, polyphagia, polyuria Hematologic/Lymphatic: ABSENT: easy bruising Physical Exam Vital Signs: Temp Pulse Resp BP Pulse Ox 98.0 F 71 20 135/60 H 98 07/04/17 07:46 07/04/17 07:46 07/04/17 07:46 07/04/17 07:46 07/04/17 07:46 Intake & Output 07/03/17 07/04/17 07/05/17 06:59 06:59 06:59 Intake Total 2238 1546 Output Total 1885 1151 Balance 353 395 Weight 98 kg 93.9 kg General appearance: PRESENT: no acute distress, well-developed, well-nourished Head exam: PRESENT: atraumatic, normocephalic Eye exam: PRESENT: EOMI, PERRLA. ABSENT: nystagmus, periorbital swelling, scleral icterus Mouth exam: PRESENT: moist Throat exam: ABSENT: tonsillar exudate, tonsillogmegaly Neck exam: ABSENT: meningismus, tenderness, thyromegaly Respiratory exam: PRESENT: symmetrical. ABSENT: chest wall tenderness, wheezes Cardiovascular exam: PRESENT: RRR, +S1, +S2 GI/Abdominal exam: PRESENT: soft. ABSENT: Velez's sign, rebound, rigid, tenderness Extremities exam: ABSENT: joint swelling Musculoskeletal exam: PRESENT: full ROM Neurological exam: PRESENT: alert, awake, oriented to time, oriented to situation, CN II-XII grossly intact Skin exam: PRESENT: normal color. ABSENT: mottled, pallor, petechiae, urticaria , vesicles Results Laboratory Results: 07/04/17 05:16 07/04/17 05:16 07/03/17 07/04/17 07/04/17 11:00 05:16 05:16 WBC 10.4 12.7 H RBC 4.63 4.68 Hgb 15.2 15.2 Hct 43.9 45.0 MCV 95 96 MCH 32.8 32.5 MCHC 34.6 33.8 RDW 13.3 13.5 Plt Count 203 192 Sodium 138.3 Potassium 4.6 Chloride 102 Carbon Dioxide 24 Anion Gap 12 BUN 18 Creatinine 0.88 Est GFR ( Amer) > 60 Est GFR (Non-Af Amer) > 60 Glucose 231 H Calcium 9.6 Total Bilirubin 1.3 AST 20 ALT 48 Alkaline Phosphatase 67 Total Protein 6.9 Albumin 4.2 06/28/17 06/28/17 21:05 21:05 Creatine Kinase 210 H CK-MB (CK-2) 1.17 Troponin I < 0.012 Impressions: Chest X-Ray 06/27/17 18:24 IMPRESSION: Cardiomegaly without CHF. Head CT 06/27/17 18:24 IMPRESSION: Involutional changes of aging with no acute intracranial pathology. EVIDENCE OF ACUTE STROKE: NO. Assessment & Plan - Diagnosis (1) Rectal bleed Is this a current diagnosis for this admission?: Yes Plan: stable Hgb less likely to be due to diverticular or AVM since that would be large volume, painless could be due to hemorrhoidal will need colonoscopy likely will need Propofol sedation Risks, benefits and alternatives are explained to the patient in detail further recommendations to follow - Time Time Spent: 50 to 70 Minutes
[2017-07-04] MEDS ORDERED: PEG 3350/NA SULF,BICARB,CL/KCL 4000 ML PO ONE (16:00)
[2017-07-04] MEDS: LOSARTAN POTASSIUM 50 MG TABLET PO SCH (17:30)
[2017-07-04] MEDS: PIOGLITAZONE HCL 15 MG TABLET PO SCH (17:30)
[2017-07-04] MEDS: SERTRALINE HCL 50 MG TABLET PO SCH (17:30)
[2017-07-04] MEDS: ATORVASTATIN CALCIUM 10 MG TABLET PO SCH (17:30)
[2017-07-04] MEDS: TAMSULOSIN HCL 0.4 MG CAP.SR.24H PO SCH (17:30)
[2017-07-04] MEDS: ASPIRIN 81 MG TABLET, CHEWABLE PO SCH (17:32)
--- NOTE | 2017-07-04 17:37 | PDOC PROGRESS REPORT ---
Subjective Progress Note for:: 07/04/17 Subjective:: Patient will need physical therapy/rehabilitation discharge planning is working on that. He is scheduled for colonoscopy tomorrow Physical Exam Vital Signs: Temp Pulse Resp BP Pulse Ox 98.1 F 79 18 118/71 96 07/04/17 11:35 07/04/17 14:00 07/04/17 11:35 07/04/17 11:35 07/04/17 11:35 Intake & Output 07/03/17 07/04/17 07/05/17 06:59 06:59 06:59 Intake Total 2238 1546 Output Total 1885 1151 Balance 353 395 Weight 98 kg 93.9 kg General appearance: PRESENT: no acute distress Eye exam: PRESENT: PERRLA Respiratory exam: PRESENT: clear to auscultation farnaz Cardiovascular exam: PRESENT: +S1, +S2 GI/Abdominal exam: PRESENT: soft Neurological exam: PRESENT: alert Results Laboratory Results: 07/04/17 05:16 07/04/17 05:16 07/04/17 07/04/17 05:16 05:16 WBC 12.7 H RBC 4.68 Hgb 15.2 Hct 45.0 MCV 96 MCH 32.5 MCHC 33.8 RDW 13.5 Plt Count 192 Sodium 138.3 Potassium 4.6 Chloride 102 Carbon Dioxide 24 Anion Gap 12 BUN 18 Creatinine 0.88 Est GFR ( Amer) > 60 Est GFR (Non-Af Amer) > 60 Glucose 231 H Calcium 9.6 Total Bilirubin 1.3 AST 20 ALT 48 Alkaline Phosphatase 67 Total Protein 6.9 Albumin 4.2 06/28/17 06/28/17 21:05 21:05 Creatine Kinase 210 H CK-MB (CK-2) 1.17 Troponin I < 0.012 Impressions: Chest X-Ray 06/27/17 18:24 IMPRESSION: Cardiomegaly without CHF. Head CT 06/27/17 18:24 IMPRESSION: Involutional changes of aging with no acute intracranial pathology. EVIDENCE OF ACUTE STROKE: NO. Assessment & Plan - Diagnosis (1) Cerebellar infarction Is this a current diagnosis for this admission?: Yes (2) Dementia Qualifiers: Dementia type: Alzheimer's disease Alzheimer's disease onset: unspecified onset Dementia behavioral disturbance: without behavioral disturbance Qualified Code(s): G30.9 - Alzheimer's disease, unspecified; F02.80 - Dementia in other diseases classified elsewhere without behavioral disturbance; F02.80 - Dementia in other diseases classified elsewhere without behavioral disturbance; F02.80 - Dementia in other diseases classified elsewhere without behavioral disturbance Is this a current diagnosis for this admission?: Yes (3) Fall Qualifiers: Encounter type: subsequent encounter Qualified Code(s): W19.XXXD - Unspecified fall, subsequent encounter Is this a current diagnosis for this admission?: Yes (4) Coronary artery disease Qualifiers: Coronary Disease-Associated Artery/Lesion type: [place] artery [place] vs. transplanted heart: [place] heart Associated angina: without angina Qualified Code(s): I25.10 - Atherosclerotic heart disease of [place] coronary artery without angina pectoris Is this a current diagnosis for this admission?: Yes (6) Type 2 diabetes mellitus Qualifiers: Diabetes mellitus complication status: without complication Diabetes mellitus half-way insulin use: with half-way use Qualified Code(s): E11.9 - Type 2 diabetes mellitus without complications Is this a current diagnosis for this admission?: Yes (7) Rectal bleed Is this a current diagnosis for this admission?: Yes - Plan Summary Plan Summary: Continue present treatment
[2017-07-05] MEDS ORDERED: PROPOFOL INJ 200 MG/20 ML VIAL IV ONE (12:44)
[2017-07-05] MEDS ORDERED: LIDOCAINE 2% INJ-PF (20 MG/ML) 10 ML AMPUL ONE (12:44)
[2017-07-05] MEDS ORDERED: MIDAZOLAM 2 MG/2 ML INJ ONE (12:44)
[2017-07-05] MEDS ORDERED: DIPHENHYDRAMINE HCL 50 MG/ML VIAL IV PRN (13:36)
[2017-07-05] MEDS ORDERED: PROMETHAZINE HCL INJ 25 MG/1 ML VIAL IV PRN ×2 (13:36)
[2017-07-05] MEDS ORDERED: FENTANYL CITRATE INJ/PF 100 MCG/2 ML AMPUL IV PRN (13:36)
[2017-07-05] MEDS ORDERED: ONDANSETRON HCL INJ/PF 4 MG/2 ML SDV IV PRN (13:36)
--- NOTE | 2017-07-05 14:02 | Operative Report ---
Operative Report DATE OF SURGERY: 07/05/17 Operative Report: The risks, benefits and alternatives of the procedure including risks of bleeding, perforation requiring surgery are explained to the patient in detail and informed consent was obtained. Patient was brought back to the operating room and placed in the left, lateral decubital position. Timeout was called. Propofol medications administered. A rectal examination is done which did not reveal any masses, tears or fissures. An Olympus with scope was inserted patient's rectum. Following insufflation is carefully advanced all the way to the cecum. The cecum is identified by the usual anatomical landmarks including the ileocecal valve as well as appendiceal office. Photodocumentation is obtained. The scope was then sequentially pulled back via the various segments of the colon including the ascending colon, hepatic flexure, transverse colon, splenic flexure, descending colon finding the rectosigmoid portions of the colon. Retroflexion maneuvers performed. PREOPERATIVE DIAGNOSIS: GI bleeding POSTOPERATIVE DIAGNOSIS: Colitis noted suspicious for ischemic colitis status post biopsy. Diverticulosis. Internal hemorrhoids OPERATION: Colonoscopy with biopsy SURGEON: DALI SANTIAGO ANESTHESIA: LMAC TISSUE REMOVED OR ALTERED: As noted above. COMPLICATIONS: None. ESTIMATED BLOOD LOSS: None. INTRAOPERATIVE FINDINGS: Suspicious for ischemic colitis. PROCEDURE: Patient tolerated the procedure well. No immediate postprocedure complications are noted. Patient sent back to his room in good condition. Resume regular diet Resume previous activity level We will wait on biopsies Continue to follow patient
[2017-07-05] MEDS: INSULIN GLARGINE,HUM.REC.ANLOG 300 UNIT/3 ML INSULN.PEN SUBCUT SCH (15:37)
[2017-07-05] MEDS: ASPIRIN 81 MG TABLET, CHEWABLE PO SCH (17:05)
[2017-07-05] MEDS: LOSARTAN POTASSIUM 50 MG TABLET PO SCH (17:05)
[2017-07-05] MEDS: TAMSULOSIN HCL 0.4 MG CAP.SR.24H PO SCH (17:06)
[2017-07-05] MEDS: PIOGLITAZONE HCL 15 MG TABLET PO SCH (17:06)
[2017-07-05] MEDS: SERTRALINE HCL 50 MG TABLET PO SCH (17:06)
[2017-07-05] MEDS: ATORVASTATIN CALCIUM 10 MG TABLET PO SCH (17:07)
[2017-07-05] MEDS: INSULIN LISPRO 100 UNIT/ML 3 ML VIAL SUBCUT PRN (17:13)
--- NOTE | 2017-07-05 20:32 | PDOC TRANSFER SUMMARY ---
General - Admit/Disc Date/PCP Admission Date/Primary Care Provider: 06/28/17 20:39 MAGALI LOTT MD Discharge Date: 07/05/17 - Discharge Diagnosis (1) Cerebellar infarction Is this a current diagnosis for this admission?: Yes (2) Dementia Is this a current diagnosis for this admission?: Yes (3) Fall Is this a current diagnosis for this admission?: Yes (4) Coronary artery disease Is this a current diagnosis for this admission?: Yes (5) Peripheral vascular disease Is this a current diagnosis for this admission?: Yes (6) Type 2 diabetes mellitus Is this a current diagnosis for this admission?: Yes (7) Rectal bleed Is this a current diagnosis for this admission?: Yes - Additional Information Resuscitation Status: Full Code Home Medications: Aspirin [Aspirin 81 mg Chewable Tablet] 81 mg PO QPM 06/27/17 Atorvastatin Calcium [Lipitor 10 mg Tablet] 10 mg PO QPM 06/27/17 Canagliflozin/Metformin HCl [Invokamet Xr 50-500 mg Tablet] 1 each PO QAM Clopidogrel Bisulfate [Plavix 75 mg Tablet] 75 mg PO QPM 06/27/17 Glipizide/Metformin HCl [Glipizide-Metformin 5-500 mg] 2 each PO QPM 06/27/17 Insulin Glargine,Hum.rec.anlog [Lantus Solostar] 25 unit SQ QAM 06/27/17 Losartan Potassium [Cozaar 50 mg Tablet] 50 mg PO QPM 06/27/17 Meclizine HCl [Antivert 25 mg Tablet] 25 mg PO Q6HP PRN 06/27/17 Pioglitazone HCl [Actos 15 mg Tablet] 15 mg PO QPM 06/27/17 Sertraline HCl [Zoloft 50 mg Tablet] 50 mg PO QPM 06/27/17 Tamsulosin HCl [Flomax 0.4 mg Cap.sr] 0.4 mg PO QPM 06/27/17 Triamcinolone Acetonide 1 applic TOP DAILYP PRN 06/27/17 History of Present Illness Admission Date/PCP: 06/28/17 20:39 MAGALI LOTT MD History of Present Illness: Patient was admitted because of suspected cerebellar infarction MRI of the brain could not be done because he has the presence of a pacemaker this makes MRI contraindicated, the clinical symptoms and sign was most consistent with cerebellar infarction and he was admitted for the same check H&P for details. Hospital Course Hospital Course: Patient was admitted for the management of cerebellar infarction he also had episode of rectal bleed was seen by GI Dr. Yanez he had a colonoscopy done, it showed diverticulosis, internal hemorrhoids ,no active bleeding was found. He was also manage according to stroke protocol for cerebellar infarction the [facility] Physical Exam Vital Signs: Temp Pulse Resp BP Pulse Ox 98.3 F 61 20 121/55 L 97 07/05/17 19:50 07/05/17 19:50 07/05/17 19:50 07/05/17 19:50 07/05/17 19:50 Intake & Output 07/04/17 07/05/17 07/06/17 06:59 06:59 06:59 Intake Total 1546 2670 1680 Output Total 1151 700 300 Balance 395 1970 1380 Weight 93.9 kg 92.2 kg General appearance: PRESENT: no acute distress Eye exam: PRESENT: PERRLA Respiratory exam: PRESENT: clear to auscultation farnaz Cardiovascular exam: PRESENT: +S1, +S2 GI/Abdominal exam: PRESENT: soft Neurological exam: PRESENT: alert, abnormal gait, ataxia Results Laboratory Results: 07/04/17 05:16 07/04/17 05:16 06/28/17 06/28/17 21:05 21:05 Creatine Kinase 210 H CK-MB (CK-2) 1.17 Troponin I < 0.012 Impressions: Chest X-Ray 06/27/17 18:24 IMPRESSION: Cardiomegaly without CHF. Head CT 06/27/17 18:24 IMPRESSION: Involutional changes of aging with no acute intracranial pathology. EVIDENCE OF ACUTE STROKE: NO.
--- NOTE | 2017-07-05 20:36 | PDOC PROGRESS REPORT ---
Subjective Progress Note for:: 07/05/17 Subjective:: Patient was seen by the bedside he had colonoscopy done today, the [facility]. Physical Exam Vital Signs: Temp Pulse Resp BP Pulse Ox 98.3 F 61 20 121/55 L 97 07/05/17 19:50 07/05/17 19:50 07/05/17 19:50 07/05/17 19:50 07/05/17 19:50 Intake & Output 07/04/17 07/05/17 07/06/17 06:59 06:59 06:59 Intake Total 1546 2670 1680 Output Total 1151 700 300 Balance 395 1970 1380 Weight 93.9 kg 92.2 kg General appearance: PRESENT: no acute distress Eye exam: PRESENT: PERRLA Respiratory exam: PRESENT: clear to auscultation farnaz Cardiovascular exam: PRESENT: +S1, +S2 GI/Abdominal exam: PRESENT: soft Neurological exam: PRESENT: alert, CN II-XII grossly intact Results Laboratory Results: 07/04/17 05:16 07/04/17 05:16 06/28/17 06/28/17 21:05 21:05 Creatine Kinase 210 H CK-MB (CK-2) 1.17 Troponin I < 0.012 Impressions: Chest X-Ray 06/27/17 18:24 IMPRESSION: Cardiomegaly without CHF. Head CT 06/27/17 18:24 IMPRESSION: Involutional changes of aging with no acute intracranial pathology. EVIDENCE OF ACUTE STROKE: NO. Assessment & Plan - Diagnosis (1) Cerebellar infarction Is this a current diagnosis for this admission?: Yes (2) Dementia Qualifiers: Dementia type: Alzheimer's disease Alzheimer's disease onset: unspecified onset Dementia behavioral disturbance: without behavioral disturbance Qualified Code(s): G30.9 - Alzheimer's disease, unspecified; F02.80 - Dementia in other diseases classified elsewhere without behavioral disturbance; F02.80 - Dementia in other diseases classified elsewhere without behavioral disturbance; F02.80 - Dementia in other diseases classified elsewhere without behavioral disturbance Is this a current diagnosis for this admission?: Yes (3) Fall Qualifiers: Encounter type: subsequent encounter Qualified Code(s): W19.XXXD - Unspecified fall, subsequent encounter Is this a current diagnosis for this admission?: Yes (4) Coronary artery disease Qualifiers: Coronary Disease-Associated Artery/Lesion type: [place] artery [place] vs. transplanted heart: [place] heart Associated angina: without angina Qualified Code(s): I25.10 - Atherosclerotic heart disease of [place] coronary artery without angina pectoris Is this a current diagnosis for this admission?: Yes (5) Peripheral vascular disease Is this a current diagnosis for this admission?: Yes (6) Type 2 diabetes mellitus Qualifiers: Diabetes mellitus complication status: without complication Diabetes mellitus chcf insulin use: with superintendent marine oil terminal use Qualified Code(s): E11.9 - Type 2 diabetes mellitus without complications Is this a current diagnosis for this admission?: Yes (7) Rectal bleed Is this a current diagnosis for this admission?: Yes
[2017-07-06] MEDS: INSULIN LISPRO 100 UNIT/ML 3 ML VIAL SUBCUT PRN ×3 (07:39→18:18)
[2017-07-06] MEDS: INSULIN GLARGINE,HUM.REC.ANLOG 300 UNIT/3 ML INSULN.PEN SUBCUT SCH (07:39)
--- NOTE | 2017-07-06 11:37 | PDOC PROGRESS REPORT ---
Subjective Progress Note for:: 07/06/17 Subjective:: patient tolerated the procedure well yesterday pathology is confirmed as ischemic colitis no further bleeding patient is stable no significant overnight events there is no abdominal pain or bleeding patient denies any fever or chills Physical Exam Vital Signs: Temp Pulse Resp BP Pulse Ox 98.6 F 56 L 16 125/47 L 98 07/06/17 07:42 07/06/17 07:42 07/06/17 07:42 07/06/17 07:42 07/06/17 07:42 Intake & Output 07/05/17 07/06/17 07/07/17 06:59 06:59 06:59 Intake Total 2670 1690 Output Total 700 900 Balance 1970 790 Weight 92.2 kg 93.7 kg General appearance: PRESENT: no acute distress, well-developed, well-nourished Head exam: PRESENT: atraumatic, normocephalic Eye exam: PRESENT: EOMI, PERRLA. ABSENT: nystagmus, periorbital swelling, scleral icterus Mouth exam: PRESENT: moist Throat exam: ABSENT: tonsillar exudate, tonsillogmegaly Neck exam: ABSENT: meningismus, tenderness, thyromegaly Respiratory exam: PRESENT: symmetrical, unlabored. ABSENT: tachypnea Cardiovascular exam: PRESENT: RRR, +S1, +S2 GI/Abdominal exam: PRESENT: soft. ABSENT: rebound, rigid, tenderness Extremities exam: ABSENT: joint swelling Neurological exam: PRESENT: oriented to time, oriented to situation, CN II-XII grossly intact Psychiatric exam: PRESENT: appropriate affect Skin exam: PRESENT: normal color. ABSENT: mottled, pallor, petechiae, urticaria , vesicles Results Laboratory Results: 07/04/17 05:16 07/04/17 05:16 06/28/17 06/28/17 21:05 21:05 Creatine Kinase 210 H CK-MB (CK-2) 1.17 Troponin I < 0.012 Impressions: Chest X-Ray 06/27/17 18:24 IMPRESSION: Cardiomegaly without CHF. Head CT 06/27/17 18:24 IMPRESSION: Involutional changes of aging with no acute intracranial pathology. EVIDENCE OF ACUTE STROKE: NO. Assessment & Plan - Diagnosis (1) Rectal bleed Is this a current diagnosis for this admission?: Yes Plan: due to ischemic colitis maintain BP resume previous diet follow up as outpatient incidental finding of internal hemorrhoids - Time Time Spent with patient: 15-24 minutes
[2017-07-06 16:54] VITALS: BP 124/59
[2017-07-06] MEDS: ATORVASTATIN CALCIUM 10 MG TABLET PO SCH (18:18)
[2017-07-06] MEDS: SERTRALINE HCL 50 MG TABLET PO SCH (18:18)
[2017-07-06] MEDS: LOSARTAN POTASSIUM 50 MG TABLET PO SCH (18:18)
[2017-07-06] MEDS: ASPIRIN 81 MG TABLET, CHEWABLE PO SCH (18:18)
[2017-07-06] MEDS: TAMSULOSIN HCL 0.4 MG CAP.SR.24H PO SCH (18:18)
[2017-07-06] MEDS: PIOGLITAZONE HCL 15 MG TABLET PO SCH (18:22)
== END 2017-07-06 20:00 | DRG 65 ==
LOC: ER 17:48 → EH 20:51 → UNDOADMIN 20:51 → EH 23:45 → 3W 23:45 → EH 06-28 20:39 → 3W 06-29 19:30
PROVIDERS: ADMIT Internal Medicine; ATTEND Internal Medicine
PROC: 5A09357 Assistance with Respiratory Ventilation, Less than 24 Consecutive Hours, Continuous Positive Airway Pressure (ICD-10-PCS; 2017-06-30)
PROC: 0DBE8ZX Excision of Large Intestine, Via Natural or Artificial Opening Endoscopic, Diagnostic (ICD-10-PCS; principal; 2017-07-05 13:00)
DX: I63.9 Cerebral infarction, unspecified (principal); K62.5 Hemorrhage of anus and rectum; K55.9 Vascular disorder of intestine, unspecified; W18.30XA Fall on same level, unspecified, initial encounter; I25.10 Atherosclerotic heart disease of native coronary artery without angina pectoris; E11.51 Type 2 diabetes mellitus with diabetic peripheral angiopathy without gangrene; K57.90 Diverticulosis of intestine, part unspecified, without perforation or abscess without bleeding; K64.8 Other hemorrhoids; I10 Essential (primary) hypertension; E78.5 Hyperlipidemia, unspecified; E11.65 Type 2 diabetes mellitus with hyperglycemia; F32.9 Major depressive disorder, single episode, unspecified; G30.9 Alzheimer's disease, unspecified; F02.80 Dementia in other diseases classified elsewhere, unspecified severity, without behavioral disturbance, psychotic disturbance, mood disturbance, and anxiety; R26.9 Unspecified abnormalities of gait and mobility; R29.810 Facial weakness; I25.2 Old myocardial infarction; Z79.899 Other long term (current) drug therapy; Z95.0 Presence of cardiac pacemaker; Z95.5 Presence of coronary angioplasty implant and graft; Z87.891 Personal history of nicotine dependence; Z99.81 Dependence on supplemental oxygen; Z79.82 Long term (current) use of aspirin; Z79.4 Long term (current) use of insulin
CPT/HCPCS: 00810; 36415; 45380; 70450; 71010; 80053; 80061; 81001; 82550; 82553; 82962; 83036; 84439; 84443; 84481; 84484; 85025; 85027; 85610; 85730; 88305; 93005; 93010; 93880; 99285; G8978-GP; G8979-GP; G8987-GO; G8988-GO; J0171; J1650; J1815; J2250; J2405; J2704; J3490; J7030; S0119

== ENCOUNTER → 2019-04-18 | Outpatient (CLI) | payer MEDICARE ==
--- NOTE | 2019-04-18 10:33 | RADIOLOGY REPORT (SQ) ---
EXAM DESCRIPTION: CT CHEST WITHOUT COMPLETED DATE/TIME: 04/18/2019 10:22 am REASON FOR STUDY: DYSPNEA (R06.09) R06.09 OTHER FORMS OF DYSPNEA COMPARISON: 01/08/2013, chest x-ray dated 06/27/2017 TECHNIQUE: CT scan performed of the chest without intravenous contrast. Images reviewed with lung, soft tissue and bone windows. Reconstructed coronal and sagittal MPR images reviewed. All images st ored on PACS. All CT scanners at this facility use dose modulation, iterative reconstruction, and/or weight based d osing when appropriate to reduce radiation dose to as low as reasonably achievable (ALARA). [facility]: Dose Right [facility]: CareDose [facility]: Dose Right [facility]: Teradose 4D [facility]: Define My Style RADIATION DOSE: CT Rad equipment meets quality standard of care and radiation dose reduction techniq ues were employed. CTDIvol: 17.2 mGy. DLP: 540 mGy-cm. mGy. LIMITATIONS: No technical limitations. FINDINGS: LUNGS AND PLEURA: There is bilateral interstitial fibrosis most marked in the subpleural l ocation. This involves the upper and lower lobes. No focal consolidation or pleural effusions. Fin dings have significantly progressed when compared to 2012. No focal pulmonary nodules. HILAR AND MEDIASTINAL STRUCTURES: Scattered small mediastinal and prevascular nodes most likely react fredo. HEART AND VASCULAR STRUCTURES: No aneurysm. No pericardial effusion. UPPER ABDOMEN: No significant findings. Limited exam. THYROID AND OTHER SOFT TISSUES: No masses. No adenopathy. BONES: No significant finding. HARDWARE: None in the chest. OTHER: No other significant findings. IMPRESSION: Pulmonary fibrosis significantly progressed when compared to 2012. No acute consolidati on or effusions. TECHNICAL DOCUMENTATION: JOB ID: [id number] Quality ID # [id number]: Final reports with documentation of one or more dose reduction techniques (e.g., Au tomated exposure control, adjustment of the mA and/or kV according to patient size, use of iterative reconstruction technique) 2010 [employer]- All Rights Reserved Reading location - IP/workstation name: [email or web address]
== END ==
LOC: RAD 09:48
PROVIDERS: ATTEND Internal Medicine Critical Care Medicine
DX: J84.9 Interstitial pulmonary disease, unspecified (principal); J45.909 Unspecified asthma, uncomplicated; R09.02 Hypoxemia; G47.33 Obstructive sleep apnea (adult) (pediatric); E66.9 Obesity, unspecified; R53.83 Other fatigue
CPT/HCPCS: 71250

== ENCOUNTER 2019-12-11 18:25 | Inpatient (IN) | payer MEDICARE ==
[2019-12-11 19:08] LABS: ABSOLUTE LYMPHOCYTES (AUTO) 1.5 10^3/uL (0.5-4.7); ABSOLUTE MONOCYTES (AUTO) 1.2 10^3/uL (0.1-1.4); ABSOLUTE NEUT (AUTO) 8.6 10^3/uL (1.7-8.2); BASOPHILS % (AUTO) 0.2 % (0-2); EOSINOPHILS % (AUTO) 0.4 % (0-6); HEMATOCRIT 40.4 % (37.9-51.0); HEMOGLOBIN 13.6 g/dL (13.5-17.0); LYMPHOCYTES % (AUTO) 13.4 % (13-45); MEAN CORPUSCULAR HEMOGLOBIN 32.6 pg (27.0-33.4); MEAN CORPUSCULAR HGB CONC 33.7 g/dL (32.0-36.0); MEAN CORPUSCULAR VOLUME 97 fl (80-97); MONOCYTES % (AUTO) 10.6 % (3-13); PLATELET COUNT 233 10^3/uL (150-450); RED BLOOD COUNT 4.18 10^6/uL (4.35-5.55); RED CELL DISTRIBUTION WIDTH 14.1 % (11.5-14.0); SEGMENTED NEUTROPHILS % (AUTO) 75.4 % (42-78); TOTAL CELLS COUNTED % (AUTO) 100 %; WHITE BLOOD COUNT 11.3 10^3/uL (4.0-10.5)
[2019-12-11 19:14] LABS: INTERNATIONAL RATION (INR) 1.07; PROTHROMBIN TIME 13.9 SEC (11.4-15.4)
[2019-12-11 19:15] LABS: VENOUS BLOOD BASE EXCESS 0.1 mmol/L; VENOUS BLOOD HCO3 24.4 mmol/L (20-32); VENOUS BLOOD PH 7.41 (7.30-7.42)
--- NOTE | 2019-12-11 19:15 | ER Document Report ---
ED General - General Chief Complaint: General Weakness Stated Complaint: GENERAL WEAKNESS Time Seen by Provider: 12/11/19 18:27 Primary Care Provider: ADAMARIS RUIZ MD [Primary Care Provider] - Follow up as needed Mode of Arrival: Medic Information source: Patient Cannot obtain history due to: Dementia TRAVEL OUTSIDE OF THE [place] IN LAST 30 DAYS: No - HPI Onset: Other - over the last several days Severity: Moderate Pain Level: Denies Associated symptoms: Other - cough, fevers, weakness Exacerbated by: Coughing Relieved by: Denies Similar symptoms previously: No Recently seen / treated by doctor: No Notes: 79 year old male with a history of Dementia, Pulmonary Fibrosis on 5L of O2, HTN, HLD, CAD, PVD brought in by EMS for a fever, cough, congestion, and weakness. EMS found the patient to have a temp of 102F. EMS administered Tylenol and the patient's temp was [id number] on ER arrival. The patient has significant Dementia so the history was obtained from his and EMS. The patient looks comfortable and is requesting something to eat. - Related Data Allergies/Adverse Reactions: No Known Allergies Allergy (Verified 06/27/17 17:53) Past Medical History - General Information source: Patient, Relative Cannot obtain history due to: Dementia - Social History Smoking Status: Never Smoker Frequency of alcohol use: None Drug Abuse: None Lives with: Spouse/Significant other Family History: Reviewed & Not Pertinent, CAD - Past Medical History Cardiac Medical History: Reports: Hx Coronary Artery Disease, Hx Heart Attack, Hx Hypercholesterolemia, Hx Hypertension, Hx Peripheral Vascular Disease Endocrine Medical History: Reports: Hx Diabetes Mellitus Type 2 Renal/ Medical History: Reports: Hx Kidney Stones. Denies: Hx Peritoneal Dialysis Psychiatric Medical History: Reports: Hx Dementia, Hx Depression Past Surgical History: Reports: Hx Coronary Artery Bypass Graft - Immunizations Immunizations up to date: Yes Hx Diphtheria, Pertussis, Tetanus Vaccination: - unk Hx Pneumococcal Vaccination: 01/23/12 Review of Systems - Review of Systems Constitutional: Fever, Weakness EENT: No symptoms reported Cardiovascular: No symptoms reported Respiratory: Cough, Short of breath, Wheezing Gastrointestinal: No symptoms reported Genitourinary: No symptoms reported Male Genitourinary: No symptoms reported Musculoskeletal: No symptoms reported Skin: No symptoms reported Hematologic/Lymphatic: No symptoms reported Neurological/Psychological: Weakness -: Yes All other systems reviewed and negative Physical Exam - Vital signs Vitals: Pulse Ox 96 12/11/19 19:18 - Notes Notes: GENERAL: Chronically ill appearing, well-nourished and in no acute distress. HEAD: Atraumatic, normocephalic. EYES: Pupils equal round and reactive to light, extraocular movements intact, sclera anicteric, conjunctiva are normal. ENT: Nares patent, oropharynx clear without exudates. Moist mucous membranes. NECK: Normal range of motion, supple without lymphadenopathy or JVD. LUNGS: Diffuse wheezing and mild rhonchi at bases. Mild increased work of breathing. HEART: Regular rate and rhythm without murmurs, rubs or gallops. ABDOMEN: Soft, nontender, normoactive bowel sounds. No guarding, no rebound. No masses appreciated. EXTREMITIES: Normal range of motion, no pitting or edema. No clubbing or cyanosis. NEUROLOGICAL: No focal deficits. Patient has dementia but has normal speech PSYCH: Normal mood, normal affect. SKIN: Warm, Dry, normal turgor, no rashes or lesions noted. Course - Re-evaluation Re-evalutation: 12/11/19 20:29 The patient seems to have pneumonia on Xray. Patient is high risk for pneumonia given his history of pulmonary fibrosis. Patient admitted to the [place] [address] isolation floor by his PCP dr. Campbell and tested for this as well as the Flu. Patient given fluids and Levaquin while in the ER. Patient currently on his home O2 requirement of 4L. - Vital Signs Vital signs: Temp Pulse Resp BP Pulse Ox 96 12/11/19 19:18 - Laboratory Result Diagrams: 12/11/19 18:49 12/11/19 18:49 Laboratory results interpreted by me: 12/11/19 12/11/19 12/11/19 18:49 18:49 18:49 WBC 11.3 H RBC 4.18 L RDW 14.1 H Absolute Neuts (auto) 8.6 H Sodium 132.6 L Chloride 96 L Glucose 173 H POC Glucose NT-Pro-B Natriuret Pep 522 H Urine Glucose (UA) 12/11/19 12/11/19 18:49 19:00 WBC RBC RDW Absolute Neuts (auto) Sodium Chloride Glucose POC Glucose 175 H NT-Pro-B Natriuret Pep Urine Glucose (UA) >=500 H - Diagnostic Test Radiology reviewed: Image reviewed, Reports reviewed - EKG Interpretation by Me EKG shows normal: Sinus rhythm, [place], Intervals Rate: Normal Rhythm: NSR Additional EKG results interpreted by me: 12/11/19 20:28 Intraventricular Conduction Delay, q waves in inferior leads Discharge - Discharge Clinical Impression: Pneumonia Qualifiers: Pneumonia type: due to unspecified organism Laterality: bilateral Lung location: unspecified part of lung Qualified Code(s): J18.9 - Pneumonia, unspecified organism Fever Qualifiers: Fever type: unspecified Qualified Code(s): R50.9 - Fever, unspecified Condition: Stable Disposition: ADMITTED INPATIENT Admitting Provider: [facility] Unit Admitted: Medical Floor Referrals: ADAMARIS RUIZ MD [Primary Care Provider] - Follow up as needed
[2019-12-11 19:28] LABS: ALKALINE PHOSPHATASE 87 U/L (38-126); ANION GAP 11 (5-19); ASPARTATE AMINO TRANSFERASE 25 U/L (17-59); BILIRUBIN,DIRECT 0.1 mg/dL (0.0-0.4); BILIRUBIN,TOTAL 1.1 mg/dL (0.2-1.3); BLOOD UREA NITROGEN 20 mg/dL (7-20); CALCIUM 9.1 mg/dL (8.4-10.2); CARBON DIOXIDE 26 mmol/L (22-30); CHLORIDE 96 mmol/L (98-107); GLUCOSE 173 mg/dL (75-110); POTASSIUM 4.3 mmol/L (3.6-5.0); TOTAL PROTEIN 7.1 g/dL (6.3-8.2)
--- NOTE | 2019-12-11 19:32 | RADIOLOGY REPORT (SQ) ---
EXAM DESCRIPTION: CHEST SINGLE VIEW COMPLETED DATE/TIME: 12/11/2019 6:13 pm REASON FOR STUDY: sob COMPARISON: 06/27/2017 EXAM PARAMETERS: NUMBER OF VIEWS: One view. TECHNIQUE: Single frontal radiographic view of the chest acquired. RADIATION DOSE: NA LIMITATIONS: None. FINDINGS: LUNGS AND PLEURA: There are patchy peripheral opacities in both lungs. No pleural effusio n or pneumothorax. MEDIASTINUM AND HILAR STRUCTURES: No masses. Contour normal. HEART AND VASCULAR STRUCTURES: Moderate cardiomegaly. No pulmonary vascular congestion. BONES: No acute findings. HARDWARE: Left infraclavicular pacemaker with intact lead wires. OTHER: No other significant finding. IMPRESSION: Patchy peripheral opacities in both lungs may represent infectious/ inflammatory process . TECHNICAL DOCUMENTATION: JOB ID: [id number] [employer]- All Rights Reserved Reading location - IP/workstation name: [email or web address]
[2019-12-11 19:38] LABS: APPEARANCE,URINE CLEAR; BILIRUBIN,URINE NEGATIVE (NEGATIVE); COLOR,URINE YELLOW; GLUCOSE, URINE >=500 mg/dL (NEGATIVE); KETONES,URINE NEGATIVE (NEGATIVE); PROTEIN,URINE NEGATIVE (NEGATIVE); URINE SPECIFIC GRAVITY 1.024; UROBILINOGEN,URINE NEGATIVE mg/dL (<2.0)
[2019-12-11 19:40] LABS: NT PRO BNP 522 pg/mL (<450)
[2019-12-11 19:47] LABS: TROPONIN I < 0.012 ng/mL
[2019-12-11] MEDS ORDERED: METHYLPREDNISOLONE INJ 125 MG/2 ML SDV IV ONE (19:47)
[2019-12-11] MEDS ORDERED: IPRATROPIUM/ALBUTEROL 0.5-2.5 MG/3 ML AMPUL NEB ONE ×2 (19:47→22:11)
[2019-12-11] MEDS ORDERED: LEVOFLOXACIN 750 MG/D5W RTU 750 MG/150 ML RTUPB IV ONE (20:07)
[2019-12-11] MEDS ORDERED: NORMAL SALINE 1000 ML 1,000 ML IV ONE (20:26)
[2019-12-11] MEDS ORDERED: RINGERS SOLUTION,LACTATED 1,000 ML IV PRN (21:11)
[2019-12-11] MEDS ORDERED: IPRATROPIUM BROMIDE 0.02% NEB 0.5 MG/2.5 ML AMPUL NEB PRN (21:11)
[2019-12-11] MEDS ORDERED: DEXTROSE 40% GEL 15 GM TUBE PO PRN ×2 (21:16)
[2019-12-11] MEDS ORDERED: GLUCAGON,HUMAN RECOMB 1 MG INJ IM PRN (21:16)
[2019-12-11] MEDS ORDERED: DEXTROSE 50%-WATER 25 GM/50 ML DISP.SYRIN IV PRN ×2 (21:16)
--- NOTE | 2019-12-11 21:46 | EKG REPORT ---
SEVERITY:- ABNORMAL ECG - SINUS RHYTHM MULTIPLE VENTRICULAR PREMATURE COMPLEXES NONSPECIFIC INTRAVENTRICULAR CONDUCTION DELAY INFERIOR INFARCT,OLD CONSIDER ANTERIOR INFARCT : Confirmed by: Nivia Carreon MD 11-Dec-2019 21:45:41
[2019-12-11] MEDS ORDERED: METHYLPREDNISOLONE INJ 125 MG/2 ML SDV ONE (22:11)
[2019-12-11 22:29] LABS: CREATINE KINASE MB 0.24 ng/mL (<4.55); NT PRO BNP 548 pg/mL (<450)
[2019-12-11 22:30] LABS: TROPONIN I < 0.012 ng/mL
[2019-12-11 22:35] LABS: A TYPE INFLUENZA AG NEGATIVE (NEGATIVE); B INFLUENZA AG NEGATIVE (NEGATIVE)
[2019-12-11] MEDS ORDERED: FLUTICASONE/VILANTEROL 100-25 MCG/DOSE IH ONE (23:32)
[2019-12-11] MEDS ORDERED: MECLIZINE HCL 25 MG TABLET ONE (23:33)
[2019-12-11] MEDS ORDERED: PIOGLITAZONE HCL 15 MG TABLET ONE (23:33)
[2019-12-11] MEDS: FLUTICASONE/VILANTEROL 100-25 MCG/DOSE IH SCH (23:40)
[2019-12-11] MEDS: CEFTRIAXONE 1 GM/D5W RTU 1 GM/50 ML RTUPB IV SCH (23:41)
[2019-12-11] MEDS: TAMSULOSIN HCL 0.4 MG CAP.SR.24H PO SCH (23:41)
[2019-12-11] MEDS: PIOGLITAZONE HCL 15 MG TABLET PO SCH (23:41)
[2019-12-11] MEDS: MECLIZINE HCL 25 MG TABLET PO SCH (23:41)
[2019-12-11] MEDS: ATORVASTATIN CALCIUM 10 MG TABLET PO SCH (23:41)
[2019-12-11] MEDS: LOSARTAN POTASSIUM 50 MG TABLET PO SCH (23:41)
[2019-12-11] MEDS: SERTRALINE HCL 50 MG TABLET PO SCH (23:42)
[2019-12-11] MEDS: CHLORPHENIRAMINE MALEATE 4 MG TABLET PO SCH (23:42)
[2019-12-11] MEDS: ASPIRIN 81 MG TABLET, ENT COATED PO SCH (23:42)
[2019-12-11] MEDS: INSULIN LISPRO 100 UNIT/ML 3 ML VIAL SUBCUT SCH (23:43)
[2019-12-12] MEDS: ALBUTEROL SULFATE 0.083% NEB 2.5 MG/3 ML AMPUL NEB PRN (00:45)
[2019-12-12] MEDS: ENOXAPARIN SODIUM INJ 40 MG/0.4 ML DISP.SYRIN SUBCUT SCH ×2 (01:44→10:15)
[2019-12-12 07:31] LABS: ABSOLUTE LYMPHOCYTES (AUTO) 0.6 10^3/uL (0.5-4.7); ABSOLUTE MONOCYTES (AUTO) 0.1 10^3/uL (0.1-1.4); ABSOLUTE NEUT (AUTO) 8.4 10^3/uL (1.7-8.2); HEMATOCRIT 40.1 % (37.9-51.0); HEMOGLOBIN 13.9 g/dL (13.5-17.0); LYMPHOCYTES % (AUTO) 6.8 % (13-45); MEAN CORPUSCULAR HEMOGLOBIN 33.5 pg (27.0-33.4); MEAN CORPUSCULAR HGB CONC 34.6 g/dL (32.0-36.0); MEAN CORPUSCULAR VOLUME 97 fl (80-97); MONOCYTES % (AUTO) 1.2 % (3-13); PLATELET COUNT 222 10^3/uL (150-450); RED BLOOD COUNT 4.14 10^6/uL (4.35-5.55); RED CELL DISTRIBUTION WIDTH 13.7 % (11.5-14.0); TOTAL CELLS COUNTED % (AUTO) 100 %; WHITE BLOOD COUNT 9.1 10^3/uL (4.0-10.5)
[2019-12-12 07:43] LABS: ALKALINE PHOSPHATASE 82 U/L (38-126); ANION GAP 13 (5-19); ASPARTATE AMINO TRANSFERASE 24 U/L (17-59); BILIRUBIN,DIRECT 0.2 mg/dL (0.0-0.4); BILIRUBIN,TOTAL 1.1 mg/dL (0.2-1.3); BLOOD UREA NITROGEN 20 mg/dL (7-20); CALCIUM 9.3 mg/dL (8.4-10.2); CARBON DIOXIDE 23 mmol/L (22-30); CHLORIDE 101 mmol/L (98-107); GLUCOSE 185 mg/dL (75-110); POTASSIUM 4.5 mmol/L (3.6-5.0); TOTAL PROTEIN 7.2 g/dL (6.3-8.2)
[2019-12-12] MEDS ORDERED: (PENDING PHARMACY ID) (Empagliflozin/Metformin Hcl [Synjardy Xr 25-1,000 Mg Tablet] 1 EACH PO SCH (08:00)
[2019-12-12] MEDS: INSULIN LISPRO 100 UNIT/ML 3 ML VIAL SUBCUT SCH ×4 (08:30→21:54)
[2019-12-12] MEDS: ASPIRIN 81 MG TABLET, ENT COATED PO SCH (10:15)
[2019-12-12] MEDS: CHLORPHENIRAMINE MALEATE 4 MG TABLET PO SCH ×2 (10:15→18:00)
[2019-12-12] MEDS: CEFTRIAXONE 1 GM/D5W RTU 1 GM/50 ML RTUPB IV SCH (10:21)
[2019-12-12] MEDS: FLUTICASONE/VILANTEROL 100-25 MCG/DOSE IH SCH (10:44)
[2019-12-12] MEDS: MECLIZINE HCL 25 MG TABLET PO SCH ×3 (10:44→18:00)
[2019-12-12] MEDS: LEVOFLOXACIN 750 MG/D5W RTU 750 MG/150 ML RTUPB IV SCH (10:45)
[2019-12-12] MEDS: INSULIN GLARGINE,HUM.REC.ANLOG 1,000 UNIT/10 ML VIAL SUBCUT SCH (14:00)
[2019-12-12] MEDS ORDERED: INSULIN GLARGINE HUM REC ANLOG 25 UNIT SQ SCH (14:00)
[2019-12-12] MEDS ORDERED: INSULIN GLARGINE,HUM.REC.ANLOG 1,000 UNIT/10 ML VIAL SUBCUT SCH (14:00)
[2019-12-12] MEDS ORDERED: GLIPIZIDE PO SCH ×2 (18:00)
[2019-12-12] MEDS: PIOGLITAZONE HCL 15 MG TABLET PO SCH (18:00)
[2019-12-12] MEDS: LOSARTAN POTASSIUM 50 MG TABLET PO SCH (18:00)
[2019-12-12] MEDS ORDERED: METFORMIN HCL 500 MG TABLET PO SCH (18:00)
[2019-12-12] MEDS: TAMSULOSIN HCL 0.4 MG CAP.SR.24H PO SCH (18:00)
[2019-12-12] MEDS ORDERED: METFORMIN HCL PO SCH ×2 (18:00)
[2019-12-12] MEDS ORDERED: GLIPIZIDE 10 MG TABLET PO SCH (18:00)
[2019-12-12] MEDS: SERTRALINE HCL 50 MG TABLET PO SCH (18:00)
--- NOTE | 2019-12-12 19:41 | PDOC H&P ---
History of Present Illness Admission Date/PCP: 12/11/19 20:18 ADAMARIS RUIZ MD History of Present Illness: MYRANDA BARKSDALE is a 79 year old male, He has a history of advanced dementia, pulm onary fibrosis, ischemic heart disease, he was brought by EMS to the emergency room for evaluation of respiratory symptoms, fever, cough, congestion generalized body weakness. He was found to have fever with temperature of 102 by EMS staff, he was given acetaminophen, on arrival in the emergency room the temperature was 99. History taking from the patient was very challenging because of his underlying dementia. The spouse narrated most of the history. The x-ray that was done suggest pneumonia.Patient with advanced dementia presenting with fever, temperature 102 and respiratory symptoms, patient need to be rule out for COVID 19 especially with the present pandemic situation, he will be admitted on the fifth floor to rule out COVID 19. I also spoke with the spouse she also is an elderly female, 76 years old she also happens to be one of my office patient, She stated that patient dementia has progressed to the degree that he no longer ambulates and she is not able to continue taking care of him at home she is requesting that patient be placed in the snf home on discharge from the hospital.When I saw patient on the floor he recognizes me, he was well mannered, he told me he was sick with respiratory symptoms. Past Medical History Cardiac Medical History: Reports: Coronary Artery Disease, Myocardial Infarction, Hyperlipidema, Hypertension, Peripheral Vascular Disease Endocrine Medical History: Reports: Diabetes Mellitus Type 2 Psychiatric Medical History: Reports: Dementia, Depression Past Surgical History Past Surgical History: Reports: Coronary Artery Bypass Graft Social History Lives with: Spouse/Significant other Smoking Status: Former Smoker Frequency of Alcohol Use: None Hx Recreational Drug Use: No Drugs: None Hx Prescription Drug Abuse: No Family History Family History: Reviewed & Not Pertinent, CAD Parental Family History Reviewed: Yes Children Family History Reviewed: Yes Sibling(s) Family History Reviewed.: Yes Medication/Allergy Home Medications: Atorvastatin Calcium [Lipitor 10 mg Tablet] 10 mg PO QPM 06/27/17 Clopidogrel Bisulfate [Plavix 75 mg Tablet] 75 mg PO QPM 06/27/17 Glipizide/Metformin HCl [Glipizide-Metformin 5-500 mg] 2 each PO DAILY@1800 06/27/17 Insulin Glargine,Hum.rec.anlog [Lantus Solostar] 25 unit SQ DAILY@1400 06/27/17 Losartan Potassium [Cozaar 50 mg Tablet] 50 mg PO QPM 06/27/17 Meclizine HCl [Antivert 25 mg Tablet] 25 mg PO TID 06/27/17 Pioglitazone HCl [Actos 15 mg Tablet] 15 mg PO QPM 06/27/17 Sertraline HCl [Zoloft 50 mg Tablet] 50 mg PO QPM 06/27/17 Tamsulosin HCl [Flomax 0.4 mg Cap.sr] 0.4 mg PO QPM 06/27/17 Aspirin [Ecotrin 81 mg EC Tablet] 81 mg PO DAILY 12/11/19 Chlorpheniramine Maleate [Aller-Chlor] 4 mg PO BID 12/11/19 Empagliflozin/Metformin HCl [Synjardy Xr 25-1,000 mg Tablet] 1 each PO QAM 12/11/19 Fluticasone/Vilanterol [Breo 100-25 Mcg Ellipta 14 Dose/Dpi] 1 inh IH DAILY 12/11/19 Allergies/Adverse Reactions: No Known Allergies Allergy (Verified 06/27/17 17:53) Review of Systems Constitutional: ABSENT: chills, fever(s), headache(s), weight gain, weight loss Eyes: ABSENT: visual disturbances Ears: ABSENT: hearing changes Cardiovascular: ABSENT: chest pain, dyspnea on exertion, edema, orthropnea, palpitations Respiratory: PRESENT: cough, sputum Gastrointestinal: ABSENT: abdominal pain, constipation, diarrhea, hematemesis, hematochezia, nausea, vomiting Genitourinary: ABSENT: as per HPI, difficulty urinating, dysuria, hematuria, nocturia, other Musculoskeletal: ABSENT: joint swelling Integumentary: ABSENT: rash, wounds Neurological: ABSENT: abnormal gait, abnormal speech, confusion, dizziness, focal weakness, syncope Psychiatric: ABSENT: anxiety, depression, homidical ideation, suicidal ideation Endocrine: ABSENT: cold intolerance, heat intolerance, menstrual abnormalities, polydipsia, polyuria Hematologic/Lymphatic: ABSENT: easy bleeding, easy bruising, lymphadenopathy Physical Exam Vital Signs: Temp Pulse Resp BP Pulse Ox 97.7 F 60 20 107/43 L 96 12/12/19 16:10 12/12/19 16:10 12/12/19 16:10 12/12/19 16:10 12/12/19 16:10 Intake & Output 12/11/19 12/12/19 12/13/19 06:59 06:59 06:59 Intake Total 560 917 Output Total 900 850 Balance -340 67 Weight 101.3 kg General appearance: PRESENT: no acute distress Head exam: PRESENT: atraumatic Eye exam: PRESENT: PERRLA Ear exam: PRESENT: normal external ear exam Mouth exam: PRESENT: moist, tongue midline Neck exam: PRESENT: full ROM Respiratory exam: PRESENT: clear to auscultation farnaz Cardiovascular exam: PRESENT: RRR, +S1, +S2 Pulses: PRESENT: normal dorsalis pedis pul, +2 pedal pulses bilateral Vascular exam: PRESENT: normal capillary refill GI/Abdominal exam: PRESENT: normal bowel sounds, soft Rectal exam: PRESENT: deferred Neurological exam: PRESENT: alert, CN II-XII grossly intact Psychiatric exam: PRESENT: appropriate affect, normal mood Skin exam: PRESENT: dry, intact, warm Results Laboratory Results: 12/12/19 07:00 12/12/19 07:00 12/11/19 12/11/19 12/11/19 18:49 18:49 21:40 WBC RBC Hgb Hct MCV MCH MCHC RDW Plt Count Seg Neutrophils % Sodium Potassium Chloride Carbon Dioxide Anion Gap BUN Creatinine Est GFR ( Amer) Glucose Lactic Acid 2.1 1.2 Calcium Total Bilirubin AST Alkaline Phosphatase Total Protein Albumin Urine Color YELLOW Urine Appearance CLEAR Urine pH 8.0 Ur Specific [place] 1.024 Urine Protein NEGATIVE Urine Glucose (UA) >=500 H Urine Ketones NEGATIVE Urine Blood NEGATIVE Urine RBC (Auto) 1 12/12/19 12/12/19 12/12/19 00:45 07:00 07:00 WBC 9.1 RBC 4.14 L Hgb 13.9 Hct 40.1 MCV 97 MCH 33.5 H MCHC 34.6 RDW 13.7 Plt Count 222 Seg Neutrophils % 92.0 H Sodium 137.0 Potassium 4.5 Chloride 101 Carbon Dioxide 23 Anion Gap 13 BUN 20 Creatinine 0.64 Est GFR ( Amer) > 60 Glucose 185 H Lactic Acid 2.8 H Calcium 9.3 Total Bilirubin 1.1 AST 24 Alkaline Phosphatase 82 Total Protein 7.2 Albumin 4.0 Urine Color Urine Appearance Urine pH Ur Specific [place] Urine Protein Urine Glucose (UA) Urine Ketones Urine Blood Urine RBC (Auto) 12/11/19 12/11/19 12/11/19 18:49 21:40 21:40 Creatine Kinase 71 CK-MB (CK-2) 0.24 Troponin I < 0.012 < 0.012 NT-Pro-B Natriuret Pep 522 H 548 H Impressions: Chest X-Ray 12/11/19 18:56 IMPRESSION: Patchy peripheral opacities in both lungs may represent infectious/ inflammatory process. Assessment & Plan - Diagnosis (1) Pneumonia Qualifiers: Pneumonia type: due to unspecified organism Laterality: bilateral Lung location: unspecified part of lung Qualified Code(s): J18.9 - Pneumonia, unspecified organism Is this a current diagnosis for this admission?: Yes Plan: Patient is admitted for the management of community-acquired pneumonia start IV antibiotic (2) Coronary artery disease Qualifiers: Coronary Disease-Associated Artery/Lesion type: [place] artery [place] vs. transplanted heart: [place] heart Associated angina: without angina Qualified Code(s): I25.10 - Atherosclerotic heart disease of [place] coronary artery without angina pectoris Is this a current diagnosis for this admission?: Yes Plan: History of coronary artery disease status post CABG (3) Dementia Qualifiers: Dementia type: unspecified type Dementia behavioral disturbance: without behavioral disturbance Qualified Code(s): F03.90 - Unspecified dementia without behavioral disturbance Is this a current diagnosis for this admission?: Yes Plan: Patient with dementia, consultation will be requested from social and political studies professor/discharge planners to arrange for residential placement on discharge (4) Type 2 diabetes mellitus Qualifiers: Diabetes mellitus equipment operator intermodal yard insulin use: with equipment operator intermodal yard use Diabetes mellitus complication status: without complication Qualified Code(s): E11.9 - Type 2 diabetes mellitus without complications Is this a current diagnosis for this admission?: Yes
[2019-12-12] MEDS: ATORVASTATIN CALCIUM 10 MG TABLET PO SCH (21:54)
[2019-12-13] MEDS: ALBUTEROL SULFATE 0.083% NEB 2.5 MG/3 ML AMPUL NEB PRN (00:09)
[2019-12-13 04:46] LABS: ARTERIAL BLOOD BASE EXCESS -1.9 mmol/L; ARTERIAL BLOOD H2CO3 1.08 mmol/L (1.05-1.35); ARTERIAL BLOOD HCO3 22.3 mmol/L (20-24); ARTERIAL BLOOD O2 SATURATION 92.3 % (94-98); ARTERIAL BLOOD PH 7.41 (7.35-7.45); ARTERIAL BLOOD PO2 62.5 mmHg (80-100); ARTERIAL BLOOD TOTAL CO2 23.4 mmol/L (23-27)
[2019-12-13 04:49] LABS: ARTERIAL BLOOD FIO2 100%
--- NOTE | 2019-12-13 06:04 | RADIOLOGY REPORT (SQ) ---
CLINICAL HISTORY: hemoptysis, SOB COMPARISON: 12/11/2019. TECHNIQUE: XR CHEST 1 VIEW 12/13/2019 12:00 AM CDT FINDINGS: The heart is enlarged. Left pacemaker is present. There are diffuse interstitial changes throughout both lungs which are chronic in appearance. There is no pleural effusion. There is no pneumothorax. There are no acute osseous findings. IMPRESSION: No change.
[2019-12-13 06:15] LABS: ABSOLUTE LYMPHOCYTES (AUTO) 1.3 10^3/uL (0.5-4.7); ABSOLUTE MONOCYTES (AUTO) 1.3 10^3/uL (0.1-1.4); RED BLOOD COUNT 4.14 10^6/uL (4.35-5.55); TOTAL CELLS COUNTED % (AUTO) 100 %
[2019-12-13 06:22] LABS: ABSOLUTE NEUT (AUTO) 13.7 10^3/uL (1.7-8.2); BASOPHILS % (AUTO) 0.2 % (0-2); EOSINOPHILS % (AUTO) 0.1 % (0-6); HEMATOCRIT 39.9 % (37.9-51.0); HEMOGLOBIN 13.6 g/dL (13.5-17.0); LYMPHOCYTES % (AUTO) 8.1 % (13-45); MEAN CORPUSCULAR HEMOGLOBIN 32.9 pg (27.0-33.4); MEAN CORPUSCULAR HGB CONC 34.1 g/dL (32.0-36.0); MEAN CORPUSCULAR VOLUME 97 fl (80-97); PLATELET COUNT 232 10^3/uL (150-450); RED CELL DISTRIBUTION WIDTH 13.4 % (11.5-14.0); SEGMENTED NEUTROPHILS % (AUTO) 83.6 % (42-78); WHITE BLOOD COUNT 16.4 10^3/uL (4.0-10.5)
[2019-12-13 06:45] LABS: ALBUMIN 4.2 g/dL (3.5-5.0); ALKALINE PHOSPHATASE 84 U/L (38-126); ANION GAP 14 (5-19); ASPARTATE AMINO TRANSFERASE 38 U/L (17-59); BILIRUBIN,DIRECT 0.3 mg/dL (0.0-0.4); BILIRUBIN,TOTAL 0.9 mg/dL (0.2-1.3); BLOOD UREA NITROGEN 33 mg/dL (7-20); CALCIUM 9.1 mg/dL (8.4-10.2); CARBON DIOXIDE 22 mmol/L (22-30); CHLORIDE 99 mmol/L (98-107); GLUCOSE 172 mg/dL (75-110); POTASSIUM 4.2 mmol/L (3.6-5.0); TOTAL PROTEIN 7.7 g/dL (6.3-8.2)
--- NOTE | 2019-12-13 08:33 | PDOC CRITICAL CARE PROG REPORT ---
General Date:: 12/13/19 Hospital Day:: 1 Resuscitation Status: Full Code Events in the past 12 to 24 Hours:: Further evidence of respiratory compromise. Review of systems relevant to events:: Respiratory. Neurological. Reason for ICU Addmission:: Evaluation for ICU transfer. - Medications: Medications reviewed and adjusted accordingly: Yes Vasopressors:: None Sedation:: None Physical Exam Vital Signs: Temp Pulse Resp BP Pulse Ox 98.4 F 92 32 H 142/56 H 94 12/13/19 05:35 12/13/19 05:35 12/13/19 07:05 12/13/19 05:35 12/13/19 07:05 Intake & Output 12/12/19 12/13/19 12/14/19 06:59 06:59 06:59 Intake Total 560 1817 Output Total 900 1870 Balance -340 -53 Weight 101.3 kg 100.2 kg Weight/Height Weight 100.2 kg Height 5 ft 8 in General appearance: PRESENT: no acute distress Head exam: PRESENT: atraumatic, normocephalic Eye exam: PRESENT: conjunctiva pink, EOMI, PERRLA. ABSENT: scleral icterus Ear exam: PRESENT: normal external ear exam Mouth exam: PRESENT: moist, tongue midline Neck exam: ABSENT: carotid bruit, JVD, lymphadenopathy, thyromegaly Respiratory exam: PRESENT: crackles, decreased breath sounds, tachypnea - Occassional., unlabored Cardiovascular exam: PRESENT: RRR. ABSENT: diastolic murmur, rubs, systolic murmur GI/Abdominal exam: PRESENT: normal bowel sounds, soft. ABSENT: distended, guarding, mass, organolmegaly, rebound, tenderness Rectal exam: PRESENT: deferred Extremities exam: PRESENT: full ROM. ABSENT: calf tenderness, clubbing, pedal edema Neurological exam: PRESENT: altered, other - Demented. Psychiatric exam: PRESENT: appropriate affect, normal mood. ABSENT: homicidal ideation, suicidal ideation Skin exam: PRESENT: dry, intact, warm, other - Color is good.. ABSENT: cyanosis, rash Laboratory/Radiographs Laboratory Results: 12/13/19 06:00 12/13/19 06:00 12/13/19 12/13/19 12/13/19 04:35 06:00 06:00 WBC 16.4 H RBC 4.14 L Hgb 13.6 Hct 39.9 MCV 97 MCH 32.9 MCHC 34.1 RDW 13.4 Plt Count 232 Seg Neutrophils % 83.6 H Carbonic Acid 1.08 HCO3/H2CO3 Ratio 20:1 ABG pH 7.41 ABG pCO2 36.0 ABG pO2 62.5 L ABG HCO3 22.3 ABG O2 Saturation 92.3 L ABG Base Excess -1.9 FiO2 100% Sodium 134.6 L Potassium 4.2 Chloride 99 Carbon Dioxide 22 Anion Gap 14 BUN 33 H Creatinine 0.72 Est GFR ( Amer) > 60 Glucose 172 H Calcium 9.1 Total Bilirubin 0.9 AST 38 Alkaline Phosphatase 84 Total Protein 7.7 Albumin 4.2 12/11/19 12/11/19 12/11/19 18:49 21:40 21:40 Creatine Kinase 71 CK-MB (CK-2) 0.24 Troponin I < 0.012 < 0.012 NT-Pro-B Natriuret Pep 522 H 548 H Impressions: Chest X-Ray 12/13/19 00:00 IMPRESSION: No change. All labs, radiographs, diagnostic studies and EKGs were personally reviewed: Yes In addition, reports of radiographic and diagnostic studies were read: Yes Assessment and Plan - Diagnosis (1) Dementia Qualifiers: Dementia type: Alzheimer's disease Alzheimer's disease onset: unspecified onset Dementia behavioral disturbance: without behavioral disturbance Qualified Code(s): G30.9 - Alzheimer's disease, unspecified; F02.80 - Dementia in other diseases classified elsewhere without behavioral disturbance; F02.80 - Dementia in other diseases classified elsewhere without behavioral disturbance; F02.80 - Dementia in other diseases classified elsewhere without behavioral di rustance Is this a current diagnosis for this admission?: Yes Plan: This is making his care a bit difficult as he does not really understand the reasons for interventions. As dementia worsens aspiration becomes more common. When he can be removed from bipap a speech evaluation may help. (2) Pulmonary fibrosis Is this a current diagnosis for this admission?: Yes Plan: This has been suggested on previous CT scans. It is worsening by CT. If this is the case this may explain some of his respiratory difficulty. Touching base with his clothing pattern preparer may help. Unfortunaty treatment is limited especially given his mental status. (3) Respiratory failure with hypoxia Qualifiers: Chronicity: acute on chronic Qualified Code(s): J96.21 - Acute and chronic respiratory failure with hypoxia Is this a current diagnosis for this admission?: Yes Plan: Admittedly he is relatively hypoxic. However his FiO2 can likely be taken down. He is 97% saturated on 100% fiO2. His color is good, he is comfortable. States his breathing is good but with his dementia I'm not sure how reliable this is. I would continue present plan. An ICU transfer is currently not indicated as treatment will be no different. This may change. If so reconsult. Plan Summary: Continue current treatment and wean FiO2 as tolerated. Critical Time Critical Time (minutes): 35 Level of Care: MEDICAL Anticipated discharge: SNF Within: Other -: 1. The care of a critical patient is a dynamic process. This note is a consumer sales representative synopsis but static in nature. The timeframe for treatments given in order is not necessarily the actual time these treatments may have been done. 2. This patient requires critical care secondary to ongoing requirements for therapy not offered or safe outside the critical care environment. Transfer to a lower level of care will result in altered life or limb morbidity and mortal ity. 3. Multidisciplinary rounds completed. 4. ABCDE bundle addressed.
[2019-12-13] MEDS: INSULIN LISPRO 100 UNIT/ML 3 ML VIAL SUBCUT SCH ×5 (09:02→23:24)
[2019-12-13 09:19] LABS: ARTERIAL BLOOD BASE EXCESS -8.3 mmol/L; ARTERIAL BLOOD FIO2 100%; ARTERIAL BLOOD H2CO3 1.08 mmol/L (1.05-1.35); ARTERIAL BLOOD HCO3 17.3 mmol/L (20-24); ARTERIAL BLOOD O2 SATURATION 95.3 % (94-98); ARTERIAL BLOOD PCO2 35.9 mmHg (35-45); ARTERIAL BLOOD TOTAL CO2 18.4 mmol/L (23-27)
[2019-12-13] MEDS ORDERED: DEXTROSE 40% GEL 15 GM TUBE PO PRN ×2 (09:54)
[2019-12-13] MEDS ORDERED: GLUCAGON,HUMAN RECOMB 1 MG INJ SUBCUT PRN (09:54)
[2019-12-13] MEDS ORDERED: DEXTROSE 50%-WATER 25 GM/50 ML DISP.SYRIN IV PRN ×2 (09:54)
[2019-12-13] MEDS ORDERED: NORMAL SALINE 1000 ML 1,000 ML IV PRN ×3 (09:54→12:11)
[2019-12-13] MEDS ORDERED: FAMOTIDINE INJ/PF 20 MG/2 ML SDV IV SCH (10:00)
[2019-12-13] MEDS ORDERED: PHARMACY COMMUNICATION ORDER MC NR ×2 (10:00→11:30)
[2019-12-13] MEDS ORDERED: ENOXAPARIN SODIUM INJ 40 MG/0.4 ML DISP.SYRIN SUBCUT SCH (10:00)
--- NOTE | 2019-12-13 10:12 | CRITICAL CARE ADMISSION REPORT ---
HPI Date:: 12/13/19 Time:: 09:30 Reason for ICU Reason:: No change in status HPI: For a hx pleased see consult recentl written. Despite being on 90% his bipap was taken off so he could eat. He naturally desaturated and became less responsive at that point he was taken to the ICU. History obtained from:: Staff - Diagnosis/Plan (1) Dementia Qualifiers: Dementia type: Alzheimer's disease Alzheimer's disease onset: unspecified onset Dementia behavioral disturbance: without behavioral disturbance Qualified Code(s): G30.9 - Alzheimer's disease, unspecified; F02.80 - Dementia in other diseases classified elsewhere without behavioral disturbance; F02.80 - Dementia in other diseases classified elsewhere without behavioral disturbance; F02.80 - Dementia in other diseases classified elsewhere without behavioral disturbance Is this a current diagnosis for this admission?: Yes (2) Pulmonary fibrosis Is this a current diagnosis for this admission?: Yes (3) Respiratory failure with hypoxia Qualifiers: Chronicity: acute on chronic Qualified Code(s): J96.21 - Acute and chronic respiratory failure with hypoxia Is this a current diagnosis for this admission?: Yes - . Plan Summary: Keep NPO place NG and wean bipap. Past Medical History Cardiac Medical History: Reports: Coronary Artery Disease, Myocardial Infarction, Hyperlipidema, Hypertension, Peripheral Vascular Disease Pulmonary Medical History: Reports: Other - Fibrosis by CT Endocrine Medical History: Reports: Diabetes Mellitus Type 2 Psychiatric Medical History: Reports: Dementia, Depression Past Surgical History Past Surgical History: Reports: Coronary Artery Bypass Graft Social/Family History - Social History Lives with: Spouse/Significant other Smoking Status: Former Smoker Frequency of Alcohol Use: None Hx Recreational Drug Use: No Drugs: None Hx Prescription Drug Abuse: No - Medication/Allergies Home Medications: Atorvastatin Calcium [Lipitor 10 mg Tablet] 10 mg PO QPM 06/27/17 Clopidogrel Bisulfate [Plavix 75 mg Tablet] 75 mg PO QPM 06/27/17 Glipizide/Metformin HCl [Glipizide-Metformin 5-500 mg] 2 each PO DAILY@1800 06/27/17 Insulin Glargine,Hum.rec.anlog [Lantus Solostar] 25 unit SQ DAILY@1400 06/27/17 Losartan Potassium [Cozaar 50 mg Tablet] 50 mg PO QPM 06/27/17 Meclizine HCl [Antivert 25 mg Tablet] 25 mg PO TID 06/27/17 Pioglitazone HCl [Actos 15 mg Tablet] 15 mg PO QPM 06/27/17 Sertraline HCl [Zoloft 50 mg Tablet] 50 mg PO QPM 06/27/17 Tamsulosin HCl [Flomax 0.4 mg Cap.sr] 0.4 mg PO QPM 06/27/17 Aspirin [Ecotrin 81 mg EC Tablet] 81 mg PO DAILY 12/11/19 Chlorpheniramine Maleate [Aller-Chlor] 4 mg PO BID 12/11/19 Empagliflozin/Metformin HCl [Synjardy Xr 25-1,000 mg Tablet] 1 each PO QAM 12/11/19 Fluticasone/Vilanterol [Breo 100-25 Mcg Ellipta 14 Dose/Dpi] 1 inh IH DAILY 12/11/19 Allergies/Adverse Reactions: No Known Allergies Allergy (Verified 06/27/17 17:53) Review of Systems ROS unobtainable: Due to mental status Physical Exam Vital Signs: Temp Pulse Resp BP Pulse Ox 99.1 F 194 H 23 H 137/86 H 95 12/13/19 08:50 12/13/19 08:50 12/13/19 08:50 12/13/19 08:50 12/13/19 08:50 Intake & Output 12/12/19 12/13/19 12/14/19 06:59 06:59 06:59 Intake Total 560 1817 Output Total 900 1870 Balance -340 -53 Weight 101.3 kg 100.2 kg Weight/Height Weight 100.2 kg Height 5 ft 8 in General appearance: PRESENT: no acute distress, obese Head exam: PRESENT: atraumatic, normocephalic Eye exam: PRESENT: conjunctiva pink, EOMI, PERRLA. ABSENT: scleral icterus Ear exam: PRESENT: normal external ear exam Mouth exam: PRESENT: moist, tongue midline Respiratory exam: PRESENT: crackles, decreased breath sounds, unlabored Cardiovascular exam: PRESENT: RRR. ABSENT: diastolic murmur, rubs, systolic murmur GI/Abdominal exam: PRESENT: normal bowel sounds, soft. ABSENT: distended, guarding, mass, organolmegaly, rebound, tenderness Rectal exam: PRESENT: deferred Extremities exam: PRESENT: full ROM. ABSENT: calf tenderness, clubbing, pedal edema Neurological exam: PRESENT: alert, awake, oriented to person, oriented to place, oriented to time, oriented to situation, CN II-XII grossly intact. ABSENT: motor sensory deficit Skin exam: PRESENT: dry, intact, warm. ABSENT: cyanosis, rash Laboratory/Radiographs Laboratory Results: 12/13/19 06:00 12/13/19 06:00 12/13/19 12/13/19 12/13/19 04:35 06:00 06:00 WBC 16.4 H RBC 4.14 L Hgb 13.6 Hct 39.9 MCV 97 MCH 32.9 MCHC 34.1 RDW 13.4 Plt Count 232 Seg Neutrophils % 83.6 H Carbonic Acid 1.08 HCO3/H2CO3 Ratio 20:1 ABG pH 7.41 ABG pCO2 36.0 ABG pO2 62.5 L ABG HCO3 22.3 ABG O2 Saturation 92.3 L ABG Base Excess -1.9 FiO2 100% Sodium 134.6 L Potassium 4.2 Chloride 99 Carbon Dioxide 22 Anion Gap 14 BUN 33 H Creatinine 0.72 Est GFR ( Amer) > 60 Glucose 172 H Calcium 9.1 Total Bilirubin 0.9 AST 38 Alkaline Phosphatase 84 Total Protein 7.7 Albumin 4.2 12/13/19 08:56 WBC RBC Hgb Hct MCV MCH MCHC RDW Plt Count Seg Neutrophils % Carbonic Acid 1.08 HCO3/H2CO3 Ratio 16:1 ABG pH 7.30 L ABG pCO2 35.9 ABG pO2 83.0 ABG HCO3 17.3 L ABG O2 Saturation 95.3 ABG Base Excess -8.3 FiO2 100% Sodium Potassium Chloride Carbon Dioxide Anion Gap BUN Creatinine Est GFR ( Amer) Glucose Calcium Total Bilirubin AST Alkaline Phosphatase Total Protein Albumin 12/11/19 18:49 Blood Blood Culture (PCR) - Final Staphylococcus Species 12/11/19 23:19 Throat Throat Culture - Final NORMAL MIKKI 12/11/19 12/11/19 12/11/19 18:49 21:40 21:40 Creatine Kinase 71 CK-MB (CK-2) 0.24 Troponin I < 0.012 < 0.012 NT-Pro-B Natriuret Pep 522 H 548 H Impressions: Chest X-Ray 12/13/19 00:00 IMPRESSION: No change. All labs, radiographs, diagnostic studies and EKGs were personally reviewed: Yes In addition, reports of radiographic and diagnostic studies were read: Yes Critical Time Critical Time (minutes): 40 -: The care of a critically ill patient is dynamic. This note represents a static moment in the admission process. Orders and treatments may be given simultaneously and urgently, and time is not outreach representative of the treatment process. This patient requires Critical Care secondary to life threatening organ or limb dysfunction. Without Critical Care services, the patient is at risk for increased mortality and morbidity.
[2019-12-13] MEDS ORDERED: PROPOFOL 1,000 MG/100 ML INFUS..BTL IV ONE (10:51)
[2019-12-13] MEDS ORDERED: ETOMIDATE INJ/PF 20 MG/10 ML SDV IV ONE (10:53)
[2019-12-13] MEDS ORDERED: CHLORPHENIRAMINE MALEATE 4 MG TABLET NG SCH (11:00)
--- NOTE | 2019-12-13 11:20 | Progress Note ---
Provider Note Provider Note: NG tube attempted. Off bipap causes him to drop O2 saturations to 80s with tachycardia. Decision made to electively intubate. Ng and meds and feeding can then be given.
[2019-12-13] MEDS ORDERED: MORPHINE SULFATE 10 MG/ML INJ ONE (11:32)
[2019-12-13] MEDS ORDERED: NORMAL SALINE 1000 ML 1,000 ML IV ONE (12:10)
--- NOTE | 2019-12-13 12:12 | RADIOLOGY REPORT (SQ) ---
EXAM DESCRIPTION: CHEST SINGLE VIEW COMPLETED DATE/TIME: 12/13/2019 11:56 am REASON FOR STUDY: Intubation. Check ETT placement. COMPARISON: Earlier same day. NUMBER OF VIEWS: One view. TECHNIQUE: Single frontal radiographic image of the chest acquired. LIMITATIONS: None. FINDINGS: LUNGS AND PLEURA: Increasing bilateral airspace disease. No pneumothorax. MEDIASTINUM AND HEART: Stable heart size and mediastinal structures. SUPPORT DEVICES: Appropriate position of endotracheal and nasogastric tubes. Unchanged position of p acemaker. BONY STRUCTURES: No acute findings. HARDWARE: None. OTHER: No other significant finding. IMPRESSION: Good position of support apparatus. No pneumothorax. Reading location - IP/workstation name: [email or web address]
--- NOTE | 2019-12-13 12:14 | RADIOLOGY REPORT (SQ) ---
EXAM DESCRIPTION: KUB/ABDOMEN (SINGLE VIEW) COMPLETED DATE/TIME: 12/13/2019 11:56 am REASON FOR STUDY: Check Placement of NG Tube COMPARISON: None. NUMBER OF VIEWS: One view. TECHNIQUE: Supine radiographic image of the abdomen acquired. LIMITATIONS: None. FINDINGS: BOWEL GAS PATTERN: Normal bowel gas pattern. No dilated loops. CALCIFICATIONS: No suspicious calcifications. SOFT TISSUES: No gross mass or suggestion of organomegaly. HARDWARE: None in the abdomen. BONES: No acute fracture. No worrisome bone lesions. OTHER: Nasogastric tube tip overlying stomach. IMPRESSION: Nasogastric tube in the stomach. TECHNICAL DOCUMENTATION: JOB ID: [id number] 2010 [employer]- All Rights Reserved Reading location - IP/workstation name: [email or web address]
[2019-12-13] MEDS ORDERED: SUCCINYLCHOLINE CHLORIDE INJ 200 MG/10 ML VIAL ONE (12:20)
[2019-12-13] MEDS ORDERED: MORPHINE SULFATE 10 MG/ML INJ IV PRN (12:24)
[2019-12-13] MEDS ORDERED: PROPOFOL 1,000 MG/100 ML INFUS..BTL IV PRN (12:24)
[2019-12-13] MEDS: LEVOFLOXACIN 750 MG/D5W RTU 750 MG/150 ML RTUPB IV SCH (12:47)
[2019-12-13] MEDS: CEFTRIAXONE 1 GM/D5W RTU 1 GM/50 ML RTUPB IV SCH (12:48)
[2019-12-13] MEDS ORDERED: DEXMEDETOMIDINE IN 0.9 % NACL 400 MCG/100 ML RTUPB IV ONE (12:55)
[2019-12-13 13:54] LABS: ARTERIAL BLOOD BASE EXCESS -2.9 mmol/L; ARTERIAL BLOOD FIO2 100% VENT; ARTERIAL BLOOD H2CO3 1.11 mmol/L (1.05-1.35); ARTERIAL BLOOD HCO3 21.6 mmol/L (20-24); ARTERIAL BLOOD O2 SATURATION 95.7 % (94-98); ARTERIAL BLOOD PCO2 36.9 mmHg (35-45); ARTERIAL BLOOD PH 7.39 (7.35-7.45); ARTERIAL BLOOD PO2 79.7 mmHg (80-100); ARTERIAL BLOOD TOTAL CO2 22.7 mmol/L (23-27)
[2019-12-13] MEDS ORDERED: MECLIZINE HCL 25 MG TABLET NG SCH (14:00)
[2019-12-13] MEDS ORDERED: IPRATROPIUM/ALBUTEROL 0.5-2.5 MG/3 ML AMPUL NEB SCH (14:00)
[2019-12-13] MEDS ORDERED: DEXMEDETOMIDINE IN NS 400 MCG/100 ML RTUPB IV PRN (14:25)
[2019-12-13] MEDS: HYDROMORPHONE HCL INJ/PF 2 MG/ML AMPULE IV PRN (17:00)
[2019-12-13] MEDS ORDERED: SERTRALINE HCL 50 MG TABLET NG SCH (18:00)
[2019-12-13] MEDS ORDERED: GLIPIZIDE 10 MG TABLET NG SCH (18:00)
[2019-12-13] MEDS ORDERED: PIOGLITAZONE HCL 15 MG TABLET NG SCH (18:00)
[2019-12-13] MEDS ORDERED: CLOPIDOGREL BISULFATE 75 MG TABLET NG SCH (18:00)
[2019-12-13] MEDS ORDERED: CLOPIDOGREL BISULFATE 75 MG TABLET PO SCH (18:00)
[2019-12-13] MEDS ORDERED: METFORMIN HCL 500 MG TABLET NG SCH (18:00)
[2019-12-13] MEDS ORDERED: LOSARTAN POTASSIUM 50 MG TABLET NG SCH (18:00)
[2019-12-13] MEDS ORDERED: ENOXAPARIN SODIUM INJ 100 MG/1 ML DISP.SYRIN SUBCUT SCH (18:15)
[2019-12-13] MEDS ORDERED: ENOXAPARIN SODIUM INJ 100 MG/1 ML DISP.SYRIN SUBCUT ONE (18:30)
[2019-12-13] MEDS ORDERED: NOREPINEPHRINE BITARTRATE INJ/PF 4 MG/4 ML SDV IV ONE (18:31)
[2019-12-13] MEDS: DEXTROSE 5%-WATER 250 ML with NOREPINEPHRINE BITARTRATE 4 MG IV PRN ×2 (18:35)
[2019-12-13] MEDS: INSULIN GLARGINE,HUM.REC.ANLOG 1,000 UNIT/10 ML VIAL SUBCUT SCH (18:55)
[2019-12-13] MEDS: HYDROCORTISONE SOD SUCCINATE INJ/PF 100 MG/2 ML SDV IV SCH ×2 (19:21→22:33)
[2019-12-13] MEDS: NORMAL SALINE 1000 ML 1,000 ML IV PRN (19:22)
[2019-12-13] MEDS: MECLIZINE HCL 25 MG TABLET PO SCH (19:59)
[2019-12-13] MEDS: ASPIRIN 81 MG TABLET, ENT COATED PO SCH (19:59)
[2019-12-13] MEDS: CHLORPHENIRAMINE MALEATE 4 MG TABLET PO SCH (19:59)
[2019-12-13] MEDS: ENOXAPARIN SODIUM INJ 40 MG/0.4 ML DISP.SYRIN SUBCUT SCH (19:59)
[2019-12-13] MEDS: FLUTICASONE/VILANTEROL 100-25 MCG/DOSE IH SCH (19:59)
--- NOTE | 2019-12-13 20:29 | RADIOLOGY REPORT (SQ) ---
EXAM DESCRIPTION: CT CHEST WITHOUT IV CONTRAST COMPLETED DATE/TME: 12/13/2019 00:00 CLINICAL HISTORY: 79 years, Male, Worsening resp status. PNA and fibrosis. CT 04/11 COMPARISON: Prior CT chest dated 04/18/2019 TECHNIQUE: Noncontrast CT with chest was performed. Coronal and sagittal reformations were created. Images stored on PACS. All CT scanners at this facility use dose modulation, iterative reconstruction, and/or weight based dosing when appropriate to reduce radiation dose to as low as reasonably achievable (ALARA). [facility]: Dose Right [facility]: CareDose [facility]: Dose Right [facility]: Teradose 4D [facility]: Smart [employer] LIMITATIONS: None. FINDINGS: Endotracheal tube tip is located within the trachea, approximately 2.1 cm above the sara. Central airways are otherwise patent. Lung windows show widespread groundglass opacity with smooth interlobular septal thickening throughout both lungs with associated small bilateral pleural effusions. This is superimposed upon irregular subpleural reticulation about the periphery of both lungs. Mediastinal windows show several enlarged mediastinal nodes, such as a right peritracheal lymph node measuring 2.5 x 1.8 cm in size on image 16 of series 2 as well as the prevascular region on image 21 of series 2 measuring 3.1 x 1.9 cm in size. Calcifications are noted about the coronary vessels, aortic valve, and thoracic aorta. The pulmonary artery is enlarged, measuring 3.7 cm in short axis. In addition, the ascending thoracic aorta is markedly dilated, measuring 4.5 cm in short axis. Enteric drainage tube tip is located within the gastric antrum. Otherwise, limited assessment of the upper abdomen reveals cholelithiasis. Scattered pancreatic parenchymal calcifications are suspected, a finding which can be associated with chronic calcific pancreatitis. Bone windows show no destructive osseous lesions. There is mild anterior wedging of a midthoracic vertebral body (T7), unchanged from 04/18/2019, and considered chronic. IMPRESSION: Widespread bilateral groundglass opacity throughout both lungs with smooth interlobular septal thickening and small bilateral pleural effusions, superimposed upon a nonspecific peripheral fibrosis. Overall, differential considerations include pulmonary edema, ARDS, acute interstitial pneumonitis, or potentially a viral pneumonitis. Mediastinal lymphadenopathy, presumably reactive. Main pulmonary arterial enlargement. Correlate for pulmonary hypertension. Moderate dilatation of the mid ascending thoracic aorta measuring 4.5 cm in short axis. TECHNICAL DOCUMENTATION: Quality ID # [id number]: Final reports with documentation of one or more dose reduction techniques (e.g., Automated exposure control, adjustment of the mA and/or kV according to patient size, use of iterative reconstruction technique) copyright 2011 [employer]- All Rights Reserved
[2019-12-13] MEDS ORDERED: MIDAZOLAM 2 MG/2 ML INJ ONE (21:01)
[2019-12-13] MEDS ORDERED: ATORVASTATIN CALCIUM 10 MG TABLET NG SCH (22:00)
[2019-12-13] MEDS ORDERED: ACETAMINOPHEN 1,000 MG/100 ML RTUPB IV ONE ×2 (22:15→22:31)
[2019-12-13] MEDS ORDERED: NORMAL SALINE INJ/PF 0.9% 10 ML SDV IV PRN (22:19)
--- NOTE | 2019-12-13 22:41 | RADIOLOGY REPORT (SQ) ---
EXAM DESCRIPTION: XR CHEST 1 VIEW COMPLETED DATE/TME: 12/13/2019 00:00 CLINICAL HISTORY: 79 years, Male, right IJ CVC placement; R/O pneumothorax COMPARISON: Prior study from 12/13/2019 NUMBER OF VIEWS: One TECHNIQUE: Single frontal view of the chest was obtained portably LIMITATIONS: None. FINDINGS: Endotracheal tube tip is located within the trachea, approximately 3.6 cm above the sara. Left subclavian approach dual lead cardiac pacer is in position. Enteric drainage tube tip projects below the field of view. Interval placement of right IJ approach central venous catheter with its tip located at the cavoatrial junction. Cardiopericardial silhouette is enlarged. Mediastinal contours are stable. Widespread bilateral airspace disease persists, unchanged and superimposed upon an underlying chronic interstitial lung disease. No pneumothorax. Suspect small bilateral pleural effusions. IMPRESSION: Interval placement of right IJ approach central venous catheter with its tip located the cavoatrial junction. Otherwise, stable exam. copyright 2010 [employer]- All Rights Reserved
[2019-12-13] MEDS ORDERED: MIDAZOLAM 2 MG/2 ML INJ IV ONE (22:45)
--- NOTE | 2019-12-13 22:59 | Operative Report ---
Bedside Procedure - History of Present Illness History of Present Illness: MYRANDA BARKSDALE is a 79 year old male with advanced dementia, pulmonary fibrosis, ischemic heart disease, he was brought by EMS to the emergency room for evaluation of respiratory symptoms, fever, cough, congestion generalized body weakness. He was found to have fever with temperature of 102 by EMS staff, he was given acetaminophen, on arrival in the emergency room the temperature was 99. History taking from the patient was very challenging because of his underlying dementia. The spouse narrated most of the history. The x-ray that was done suggest pneumonia.Patient with advanced dementia presenting with fever, temperature 102 and respiratory symptoms, patient need to be rule out for COVID 19 especially with the present pandemic situation, he will be admitted on the fifth floor to rule out COVID 19. I also spoke with the spouse she also is an elderly female, 76 years old she also happens to be one of my office patient, She stated that patient dementia has progressed to the degree that he no longer ambulates and she is not able to continue taking care of him at home she is requesting that patient be placed in the [facility] on discharge from the hospital.When I saw patient on the floor he recognizes me, he was well mannered, he told me he was sick with respiratory symptoms. Procedure: arterial line placement Proceduralist: FRITZ Bowden Indication: Hypotension Anesthesia 3 mL 1% Lidocaine without Epinephrine Findings: successful placement of right radial arterial line Complications: none Details: Patient placed in proper procedural position followed by prepping and draping in usual sterile fashion. Utilizing ultrasound the right radial artery was identified and is free of thrombus at the site of where the catheter will be placed. The skin and subcutaneous tissue was anesthetized with 3 mL of 1% lidocaine. A 22-gauge introducer needle was visualized entering the right radial artery with return of pulsatile blood. A preloaded 20-gauge 1 and three- quarter inch catheter was then deployed over the needle into the right radial artery and the needle was removed, noting pulsatile blood. Transducer tubing was hooked up to the catheter demonstrating a good arterial waveform. Catheter was sutured into place and a sterile occlusive transparent dressing was applied. Patient tolerated procedure well without any complications. Indication for Procedure: Hypotension Date: 12/13/19 Provider: DARRYL PHILIPPE - Central Line Right Internal jugular Time completed: 09:40 Consent obtained: Yes Central line pre-insertion: Sterile PPE donned, Chloraprep applied, Sterile drapes applied Central line size (Fr.): 7 Central line lumen type: Triple Anesthetic type: 1% Lidocaine mL's of anesthesia: 3 Ultrasound guided: Yes CM at insertion site: 20 Line secured with sutures: Yes Central line post-insertion: Blood return from lumens, Biopatch applied, Sutured, Sterile dressing applied, Position confirmed w/ CXR Number of attempts: 1 Complications: No Notes: 12/13/19 22:53 Patient placed in proper procedural position followed by prepping and draping in usual sterile fashion. Utilizing ultrasound, the right internal jugular vein was identified and is free of thrombus from the angle of the mandible down to the clavicle. The patient's skin and subcutaneous tissue was anesthetized with 3 mL of 1% lidocaine without epinephrine. While under negative pressure attached to a 10 mL syringe, a 20-gauge introducer needle was visualized entering the right internal jugular vein for which a flash of blood was obtained. The syringe was disconnected from the needle noting a slow dripping of blood. A guidewire was then inserted through the needle into the right internal jugular vein and the needle was removed. The guidewire was confirmed to be in the right internal jugular vein in 2 views via ultrasound. Next, a dilator was passed over the wire to dilate the subcutaneous tissue and was subsequently removed. Then a 7 [place]ese 20 cm catheter was advanced over the wire into the right internal jugular vein and the guidewire was subsequently removed, again noting a slow dripping of blood from the distal lumen of the catheter. All lumens aspirated and flushed easily. A Biopatch was applied, the catheter was sutured into place at 20 cm at the skin due to the amount of adipose tissue the catheter had to go through to enter the vein, and a sterile occlusive transparent dressing was applied. Patient tolerated procedure well without any complications. A chest x-ray was obtained demonstrating the central venous catheter may be in the inferior vena cava versus the right ventricle which is difficult to tell given the opacification from the pulmonary process currently transpiring. In any event, the IJ central line is okay to use even if it is in the IVC. If there is any ventricular ectopy despite the bigeminal PVCs the patient has at baseline, then will retract the line 4 cm. 12/13/19 22:58
[2019-12-13 23:09] LABS: ARTERIAL BLOOD BASE EXCESS -4.7 mmol/L; ARTERIAL BLOOD H2CO3 1.02 mmol/L (1.05-1.35); ARTERIAL BLOOD HCO3 19.6 mmol/L (20-24); ARTERIAL BLOOD O2 SATURATION 97.3 % (94-98); ARTERIAL BLOOD PH 7.38 (7.35-7.45); ARTERIAL BLOOD PO2 95.9 mmHg (80-100); ARTERIAL BLOOD TOTAL CO2 20.7 mmol/L (23-27)
[2019-12-13 23:10] LABS: ARTERIAL BLOOD FIO2 100%
[2019-12-14] MEDS: MIDAZOLAM 2 MG/2 ML INJ IV PRN ×6 (00:01→21:09)
[2019-12-14 00:53] LABS: ANION GAP 9 (5-19); BLOOD UREA NITROGEN 36 mg/dL (7-20); CALCIUM 8.1 mg/dL (8.4-10.2); CARBON DIOXIDE 22 mmol/L (22-30); CHLORIDE 104 mmol/L (98-107); GLUCOSE 139 mg/dL (75-110); PHOSPHORUS 3.6 mg/dL (2.5-4.5); POTASSIUM 4.7 mmol/L (3.6-5.0)
[2019-12-14] MEDS ORDERED: NOREPINEPHRINE BITARTRATE INJ/PF 4 MG/4 ML SDV IV ONE (04:17)
[2019-12-14] MEDS: NORMAL SALINE 1000 ML 1,000 ML IV PRN (04:37)
[2019-12-14] MEDS: DEXTROSE 5%-WATER 250 ML with NOREPINEPHRINE BITARTRATE 4 MG IV PRN ×2 (04:37)
[2019-12-14 04:56] LABS: ABSOLUTE LYMPHOCYTES (AUTO) 0.7 10^3/uL (0.5-4.7); ABSOLUTE MONOCYTES (AUTO) 0.9 10^3/uL (0.1-1.4); ABSOLUTE NEUT (AUTO) 9.5 10^3/uL (1.7-8.2); ARTERIAL BLOOD BASE EXCESS -8.3 mmol/L; ARTERIAL BLOOD FIO2 75%; ARTERIAL BLOOD H2CO3 0.96 mmol/L (1.05-1.35); ARTERIAL BLOOD HCO3 16.5 mmol/L (20-24); ARTERIAL BLOOD O2 SATURATION 96.4 % (94-98); ARTERIAL BLOOD PH 7.33 (7.35-7.45); ARTERIAL BLOOD PO2 89.8 mmHg (80-100); ARTERIAL BLOOD TOTAL CO2 17.4 mmol/L (23-27); BASOPHILS % (AUTO) 0.1 % (0-2); HEMOGLOBIN 12.4 g/dL (13.5-17.0); LYMPHOCYTES % (AUTO) 6.6 % (13-45); MEAN CORPUSCULAR HEMOGLOBIN 32.7 pg (27.0-33.4); MEAN CORPUSCULAR HGB CONC 33.6 g/dL (32.0-36.0); MEAN CORPUSCULAR VOLUME 97 fl (80-97); MONOCYTES % (AUTO) 8.1 % (3-13); PLATELET COUNT 232 10^3/uL (150-450); RED CELL DISTRIBUTION WIDTH 13.8 % (11.5-14.0); SEGMENTED NEUTROPHILS % (AUTO) 85.2 % (42-78); TOTAL CELLS COUNTED % (AUTO) 100 %; WHITE BLOOD COUNT 11.2 10^3/uL (4.0-10.5)
[2019-12-14 05:14] LABS: ANION GAP 14 (5-19); BLOOD UREA NITROGEN 31 mg/dL (7-20); CALCIUM 8.4 mg/dL (8.4-10.2); CARBON DIOXIDE 18 mmol/L (22-30); CHLORIDE 105 mmol/L (98-107); GLUCOSE 151 mg/dL (75-110); POTASSIUM 3.9 mmol/L (3.6-5.0)
[2019-12-14] MEDS: HYDROMORPHONE HCL INJ/PF 2 MG/ML AMPULE IV PRN (05:16)
[2019-12-14] MEDS: HYDROCORTISONE SOD SUCCINATE INJ/PF 100 MG/2 ML SDV IV SCH ×3 (05:16→21:09)
[2019-12-14] MEDS: INSULIN LISPRO 100 UNIT/ML 3 ML VIAL SUBCUT SCH ×4 (05:17→23:57)
[2019-12-14] MEDS ORDERED: ENOXAPARIN SODIUM INJ 100 MG/1 ML DISP.SYRIN SUBCUT SCH (06:00)
[2019-12-14] MEDS ORDERED: ASPIRIN 81 MG TABLET, CHEWABLE NG SCH (10:00)
[2019-12-14] MEDS: LEVOFLOXACIN 750 MG/D5W RTU 750 MG/150 ML RTUPB IV SCH (10:09)
[2019-12-14] MEDS: ENOXAPARIN SODIUM INJ 40 MG/0.4 ML DISP.SYRIN SUBCUT SCH (10:10)
[2019-12-14] MEDS: FAMOTIDINE INJ/PF 20 MG/2 ML SDV IV SCH ×2 (10:13→21:10)
[2019-12-14] MEDS: CEFTRIAXONE 1 GM/D5W RTU 1 GM/50 ML RTUPB IV SCH (10:19)
[2019-12-14] MEDS ORDERED: FENTANYL CITRATE INJ/PF 100 MCG/2 ML AMPUL ONE (10:32)
[2019-12-14] MEDS ORDERED: FENTANYL CITRATE INJ/PF 100 MCG/2 ML AMPUL IV ONE (10:57)
[2019-12-14] MEDS: RINGERS SOLUTION,LACTATED 1,000 ML IV PRN ×2 (10:59→19:49)
[2019-12-14] MEDS: FENTANYL CITRATE/PF 600 MCG/60 ML BAG IV PRN ×2 (11:01→21:11)
--- NOTE | 2019-12-14 11:11 | PDOC CRITICAL CARE PROG REPORT ---
General Date:: 12/14/19 ICU Day:: 2 Ventilator Day:: 2 Hospital Day:: 3 Resuscitation Status: Full Code Events in the past 12 to 24 Hours:: Intubated, found to be in CHF Review of systems relevant to events:: Respiratory, CV, neurological. Reason for ICU Addmission:: Now intubated and on levophed. - Medications: Medications reviewed and adjusted accordingly: Yes Vasopressors:: Levophed. Sedation:: Fentanyl Physical Exam Vital Signs: Temp Pulse Resp BP Pulse Ox 100.4 F 90 17 116/53 L 95 12/14/19 06:00 12/13/19 20:00 12/14/19 06:00 12/13/19 20:19 12/14/19 06:00 Intake & Output 12/13/19 12/14/19 12/15/19 06:59 06:59 06:59 Intake Total 1817 3824 85 Output Total 1870 1825 375 Balance -53 1998 - Weight 100.2 kg 108.1 kg Weight/Height Weight 108.1 kg Height 5 ft 8 in General appearance: PRESENT: no acute distress, obese Head exam: PRESENT: atraumatic, normocephalic Eye exam: PRESENT: conjunctiva pink, EOMI, PERRLA. ABSENT: scleral icterus Ear exam: PRESENT: normal external ear exam Mouth exam: PRESENT: moist, tongue midline Respiratory exam: PRESENT: clear to auscultation farnaz, crackles, tachypnea. ABSENT: rales, rhonchi, wheezes Cardiovascular exam: PRESENT: RRR, tachycardia. ABSENT: diastolic murmur, rubs, systolic murmur Vascular exam: PRESENT: normal capillary refill GI/Abdominal exam: PRESENT: normal bowel sounds, soft. ABSENT: distended, guarding, mass, organolmegaly, rebound, tenderness Rectal exam: PRESENT: deferred Gentrourinary exam: PRESENT: indwelling catheter Extremities exam: PRESENT: full ROM. ABSENT: calf tenderness, clubbing, pedal edema Neurological exam: PRESENT: alert, altered, awake Psychiatric exam: PRESENT: agitated - At times. Skin exam: PRESENT: dry, intact, warm. ABSENT: cyanosis, rash Tubes/Lines: PRESENT: Endotracheal Tube, Central Line, Arterial Catheter, Nasogastic Tube Laboratory/Radiographs Laboratory Results: 12/14/19 04:29 12/14/19 04:29 12/13/19 12/13/19 12/14/19 13:48 22:54 00:14 WBC RBC Hgb Hct MCV MCH MCHC RDW Plt Count Seg Neutrophils % Carbonic Acid 1.11 1.02 L HCO3/H2CO3 Ratio 19:1 19:1 ABG pH 7.39 7.38 ABG pCO2 36.9 34.0 L ABG pO2 79.7 L 95.9 ABG HCO3 21.6 19.6 L ABG O2 Saturation 95.7 97.3 ABG Base Excess -2.9 -4.7 FiO2 100% VENT 100% Sodium 135.3 L Potassium 4.7 Chloride 104 Carbon Dioxide 22 Anion Gap 9 BUN 36 H Creatinine 0.87 Est GFR ( Amer) > 60 Glucose 139 H Calcium 8.1 L Phosphorus 3.6 Magnesium 2.0 12/14/19 12/14/19 12/14/19 04:29 04:29 04:29 WBC 11.2 H RBC 3.80 L Hgb 12.4 L Hct 37.0 L MCV 97 MCH 32.7 MCHC 33.6 RDW 13.8 Plt Count 232 Seg Neutrophils % 85.2 H Carbonic Acid 0.96 L HCO3/H2CO3 Ratio 17:1 ABG pH 7.33 L ABG pCO2 32.0 L ABG pO2 89.8 ABG HCO3 16.5 L ABG O2 Saturation 96.4 ABG Base Excess -8.3 FiO2 75% Sodium 136.9 L Potassium 3.9 Chloride 105 Carbon Dioxide 18 L Anion Gap 14 BUN 31 H Creatinine 0.72 Est GFR ( Amer) > 60 Glucose 151 H Calcium 8.4 Phosphorus Magnesium 12/11/19 18:49 Blood Blood Culture (PCR) - Final Staphylococcus Species 12/11/19 23:19 Throat Throat Culture - Final NORMAL MIKKI 12/11/19 12/11/19 12/11/19 18:49 21:40 21:40 Creatine Kinase 71 CK-MB (CK-2) 0.24 Troponin I < 0.012 < 0.012 NT-Pro-B Natriuret Pep 522 H 548 H Impressions: Chest CT 12/13/19 00:00 IMPRESSION: Widespread bilateral groundglass opacity throughout both lungs with smooth interlobular septal thickening and small bilateral pleural effusions, superimposed upon a nonspecific peripheral fibrosis. Overall, differential considerations include pulmonary edema, ARDS, acute interstitial pneumonitis, or potentially a viral pneumonitis. Mediastinal lymphadenopathy, presumably reactive. Main pulmonary arterial enlargement. Correlate for pulmonary hypertension. Moderate dilatation of the mid ascending thoracic aorta measuring 4.5 cm in short axis. TECHNICAL DOCUMENTATION: Quality ID # 436: Final reports with documentation of one or more dose reduction techniques (e.g., Automated exposure control, adjustment of the mA and/or kV according to patient size, use of iterative reconstruction technique) copyright 2010 [employer]- All Rights Reserved Chest X-Ray 12/13/19 00:00 IMPRESSION: Interval placement of right IJ approach central venous catheter with its tip located the cavoatrial junction. Otherwise, stable exam. copyright 2010 [email or web address]- All Rights Reserved KUB X-Ray 12/13/19 09:58 IMPRESSION: Nasogastric tube in the stomach. EKG: Paced with occassional PVCs and bigeminy. All labs, radiographs, diagnostic studies and EKGs were personally reviewed: Yes In addition, reports of radiographic and diagnostic studies were read: Yes Assessment and Plan - Diagnosis (1) Dementia Qualifiers: Dementia type: Alzheimer's disease Alzheimer's disease onset: unspecified onset Dementia behavioral disturbance: without behavioral disturbance Qualified Code(s): G30.9 - Alzheimer's disease, unspecified; F02.80 - Dementia in other diseases classified elsewhere without behavioral disturbance; F02.80 - Dementia in other diseases classified elsewhere without behavioral disturbance; F02.80 - Dementia in other diseases classified elsewhere without behavioral disturbance Is this a current diagnosis for this admission?: Yes Plan: Not worse but making his ability to understand procedures difficult. (2) Pulmonary fibrosis Is this a current diagnosis for this admission?: Yes Plan: This is definately impacting his ventilatory status. On steroids more for hypoadrenalism. (3) Respiratory failure with hypoxia Qualifiers: Chronicity: acute on chronic Qualified Code(s): J96.21 - Acute and chronic respiratory failure with hypoxia Is this a current diagnosis for this admission?: Yes Plan: This is a combination of aspiration, possible PNA, doubt COVID, and CHF. Provide supportive care. (4) CHF (congestive heart failure) Qualifiers: Heart failure type: combined systolic and diastolic Heart failure chronicity: acute on chronic Qualified Code(s): I50.43 - Acute on chronic combined systolic (congestive) and diastolic (congestive) heart failure Is this a current diagnosis for this admission?: Yes Plan: This seems to be somewhat acute. With pulmonary fibrosis he probably has Pulm HTN made worse by present condition. He also has a reduced EF at 20-30% by bedside echo. Need a formal study. May need milrinone. Slightly improved. (5) ARDS (adult respiratory distress syndrome) Is this a current diagnosis for this admission?: Yes Plan: PaO2/FiO2 ratio 118 definately in ARDS territory. With presumed aspiration as a cause but with CHF as a confounder. I would treat for ARDS with low volume ventilation. He is of pressure control with peak airway pressures only 25 Plan Summary: Ceck formal echo, may need milrinone keep weaning FiO2. Critical Time Critical Time (minutes): 45 Level of Care: ICU Anticipated discharge: SNF Within: Other -: 1. The care of a critical patient is a dynamic process. This note is a ambulatory service representative synopsis but static in nature. The timeframe for treatments given in order is not necessarily the actual time these treatments may have been done. 2. This patient requires critical care secondary to ongoing requirements for therapy not offered or safe outside the critical care environment. Transfer to a lower level of care will result in altered life or limb morbidity and mortality. 3. Multidisciplinary rounds completed. 4. ABCDE bundle addressed.
[2019-12-14] MEDS: POTASSIUM CHLORIDE 10 MEQ TABLET.ER PO SCH (14:55)
[2019-12-14] MEDS: INSULIN GLARGINE,HUM.REC.ANLOG 1,000 UNIT/10 ML VIAL SUBCUT SCH (15:01)
[2019-12-14] MEDS ORDERED: ACETAMINOPHEN SOLN 325 MG/10.15 ML UDCUP ONE (17:31)
[2019-12-14] MEDS: ACETAMINOPHEN SOLN 325 MG/10.15 ML UDCUP NG PRN ×2 (17:39→23:57)
[2019-12-15] MEDS: MIDAZOLAM 2 MG/2 ML INJ IV PRN ×2 (02:00→05:11)
[2019-12-15] MEDS: HYDROCORTISONE SOD SUCCINATE INJ/PF 100 MG/2 ML SDV IV SCH ×3 (05:11→22:30)
[2019-12-15] MEDS: RINGERS SOLUTION,LACTATED 1,000 ML IV PRN (05:14)
[2019-12-15] MEDS: INSULIN LISPRO 100 UNIT/ML 3 ML VIAL SUBCUT SCH ×3 (05:34→18:17)
[2019-12-15 05:40] LABS: ARTERIAL BLOOD BASE EXCESS -2.2 mmol/L; ARTERIAL BLOOD PCO2 36.4 mmHg (35-45); ARTERIAL BLOOD PO2 80.4 mmHg (80-100); ARTERIAL BLOOD TOTAL CO2 23.2 mmol/L (23-27)
[2019-12-15 05:41] LABS: ARTERIAL BLOOD FIO2 75%
[2019-12-15 05:42] LABS: ABSOLUTE LYMPHOCYTES (AUTO) 0.8 10^3/uL (0.5-4.7); ABSOLUTE MONOCYTES (AUTO) 0.8 10^3/uL (0.1-1.4); ABSOLUTE NEUT (AUTO) 7.6 10^3/uL (1.7-8.2); HEMATOCRIT 35.2 % (37.9-51.0); HEMOGLOBIN 12.2 g/dL (13.5-17.0); LYMPHOCYTES % (AUTO) 8.7 % (13-45); MEAN CORPUSCULAR HEMOGLOBIN 33.5 pg (27.0-33.4); MEAN CORPUSCULAR HGB CONC 34.7 g/dL (32.0-36.0); MEAN CORPUSCULAR VOLUME 97 fl (80-97); MONOCYTES % (AUTO) 8.6 % (3-13); PLATELET COUNT 218 10^3/uL (150-450); RED BLOOD COUNT 3.65 10^6/uL (4.35-5.55); RED CELL DISTRIBUTION WIDTH 13.5 % (11.5-14.0); SEGMENTED NEUTROPHILS % (AUTO) 82.7 % (42-78); TOTAL CELLS COUNTED % (AUTO) 100 %; WHITE BLOOD COUNT 9.2 10^3/uL (4.0-10.5)
[2019-12-15 05:49] LABS: APPEARANCE,URINE CLEAR; BILIRUBIN,URINE NEGATIVE (NEGATIVE); COLOR,URINE YELLOW; GLUCOSE, URINE >=500 mg/dL (NEGATIVE); KETONES,URINE 20 mg/dL (NEGATIVE); LEUKOCYTE ESTERASE,URINE NEGATIVE (NEGATIVE); NITRITE,URINE NEGATIVE (NEGATIVE); PROTEIN,URINE 30 mg/dL (NEGATIVE); URINE SPECIFIC GRAVITY 1.036; UROBILINOGEN,URINE NEGATIVE mg/dL (<2.0)
[2019-12-15 05:57] LABS: ANION GAP 7 (5-19); BLOOD UREA NITROGEN 27 mg/dL (7-20); CALCIUM 8.5 mg/dL (8.4-10.2); CARBON DIOXIDE 25 mmol/L (22-30); CHLORIDE 109 mmol/L (98-107); GLUCOSE 134 mg/dL (75-110); PHOSPHORUS 2.6 mg/dL (2.5-4.5)
[2019-12-15] MEDS ORDERED: RINGERS SOLUTION,LACTATED 1,000 ML IV PRN (06:49)
[2019-12-15] MEDS: PHOSPHORUS #1 250 MG TABLET NG SCH ×4 (07:45→22:29)
--- NOTE | 2019-12-15 07:55 | RADIOLOGY REPORT (SQ) ---
CLINICAL HISTORY: respiratory failure COMPARISON: 12/13/2019. TECHNIQUE: XR CHEST 1 VIEW 12/15/2019 6:00 AM CDT FINDINGS: The heart is enlarged. Left dual-chamber pacemaker is unchanged. There are moderate interstitial changes within both lungs which is slightly improved. There is no pleural effusion. There is no pneumothorax. There are no acute osseous findings. Endotracheal tube, nasogastric tube and right central line are unchanged. IMPRESSION: Improving aeration of the lungs.
[2019-12-15] MEDS: POTASSIUM CHLORIDE 10 MEQ TABLET.ER PO SCH (09:22)
[2019-12-15] MEDS: ENOXAPARIN SODIUM INJ 40 MG/0.4 ML DISP.SYRIN SUBCUT SCH (09:22)
[2019-12-15] MEDS: ACETAMINOPHEN SOLN 325 MG/10.15 ML UDCUP NG PRN ×3 (09:23→22:28)
[2019-12-15] MEDS: FAMOTIDINE INJ/PF 20 MG/2 ML SDV IV SCH ×2 (09:23→22:30)
[2019-12-15] MEDS: LEVOFLOXACIN 750 MG/D5W RTU 750 MG/150 ML RTUPB IV SCH (09:24)
[2019-12-15] MEDS: CEFTRIAXONE 1 GM/D5W RTU 1 GM/50 ML RTUPB IV SCH (09:24)
[2019-12-15] MEDS: FENTANYL CITRATE/PF 600 MCG/60 ML BAG IV PRN ×2 (10:10→20:20)
--- NOTE | 2019-12-15 14:17 | PDOC CRITICAL CARE PROG REPORT ---
General Date:: 12/15/19 Ventilator Day:: 3 Resuscitation Status: Full Code Events in the past 12 to 24 Hours:: 79 yo with both chronic pulmonary fibrosis and a significant cardiomyopathy who is very comfortable on the ventilator low-dose pressure control and relatively high-dose PEEP. His compliance is not bad but his oxygenation has been poor. Tolerating NG feeds at 20 an hour. Cultures from the are growing staph epi in 1 set the both bottles. Had a fever today of 101.8. Reason for ICU Addmission:: Now intubated but off levophed. - Medications: Medications reviewed and adjusted accordingly: Yes - Levoquin may need to be changed Physical Exam Vital Signs: Temp Pulse Resp BP Pulse Ox 101.3 F H 81 16 142/91 H 95 12/15/19 12:00 12/15/19 12:00 12/15/19 12:00 12/15/19 12:00 12/15/19 12:32 Intake & Output 12/14/19 12/15/19 12/16/19 06:59 06:59 06:59 Intake Total 3824 3766 437 Output Total 1825 2700 765 Balance 1998 1066 -328 Weight 108.1 kg 106.4 kg 106.4 kg Weight/Height Weight 106.4 kg Height 5 ft 8 in General appearance: PRESENT: no acute distress - Orally intubated and sedated with Sublimaze, obese Head exam: PRESENT: normocephalic Eye exam: PRESENT: conjunctival injection, EOMI, PERRLA Mouth exam: PRESENT: neck supple Neck exam: PRESENT: JVD Respiratory exam: PRESENT: rales. ABSENT: wheezes GI/Abdominal exam: PRESENT: distended. ABSENT: tenderness Gentrourinary exam: PRESENT: indwelling catheter Extremities exam: PRESENT: pedal edema Laboratory/Radiographs Laboratory Results: 12/15/19 05:25 12/15/19 05:25 12/15/19 12/15/19 12/15/19 05:25 05:25 05:25 WBC 9.2 RBC 3.65 L Hgb 12.2 L Hct 35.2 L MCV 97 MCH 33.5 H MCHC 34.7 RDW 13.5 Plt Count 218 Seg Neutrophils % 82.7 H Carbonic Acid 1.10 HCO3/H2CO3 Ratio 20:1 ABG pH 7.40 ABG pCO2 36.4 ABG pO2 80.4 ABG HCO3 22.0 ABG O2 Saturation 96.0 ABG Base Excess -2.2 FiO2 75% Sodium 141.3 Potassium 4.0 Chloride 109 H Carbon Dioxide 25 Anion Gap 7 BUN 27 H Creatinine 0.55 Est GFR ( Amer) > 60 Glucose 134 H Calcium 8.5 Ionized Calcium Pooja 1.18 Phosphorus 2.6 Magnesium 2.4 H Urine Color Urine Appearance Urine pH Ur Specific [place] Urine Protein Urine Glucose (UA) Urine Ketones Urine Blood Urine Nitrite Ur Leukocyte Esterase Urine WBC (Auto) Urine RBC (Auto) 12/15/19 05:25 WBC RBC Hgb Hct MCV MCH MCHC RDW Plt Count Seg Neutrophils % Carbonic Acid HCO3/H2CO3 Ratio ABG pH ABG pCO2 ABG pO2 ABG HCO3 ABG O2 Saturation ABG Base Excess FiO2 Sodium Potassium Chloride Carbon Dioxide Anion Gap BUN Creatinine Est GFR ( Amer) Glucose Calcium Ionized Calcium [place] Phosphorus Magnesium Urine Color YELLOW Urine Appearance CLEAR Urine pH 6.0 Ur Specific [place] 1.036 Urine Protein 30 H Urine Glucose (UA) >=500 H Urine Ketones 20 H Urine Blood MODERATE H Urine Nitrite NEGATIVE Ur Leukocyte Esterase NEGATIVE Urine WBC (Auto) 5 Urine RBC (Auto) 34 12/13/19 12:15 Sputum Gram Stain - Final 12/13/19 12:15 Sputum Sputum Culture - Final C.albicans/C.dubliniensis Normal Joslyn Absent 12/11/19 18:49 Blood Blood Culture (PCR) - Final Staphylococcus Species 12/11/19 18:49 Blood Blood Culture - Final Staphylococcus Epidermidis 12/13/19 03:25 Sputum Gram Stain - Final 12/13/19 03:25 Sputum Sputum Culture - Final 12/11/19 18:49 Clean Catch Midstream Urine Culture - Final Viridans Streptococcus 12/11/19 12/11/19 12/11/19 18:49 21:40 21:40 Creatine Kinase 71 CK-MB (CK-2) 0.24 Troponin I < 0.012 < 0.012 NT-Pro-B Natriuret Pep 522 H 548 H Impressions: Chest CT 12/13/19 00:00 IMPRESSION: Widespread bilateral groundglass opacity throughout both lungs with smooth interlobular septal thickening and small bilateral pleural effusions, superimposed upon a nonspecific peripheral fibrosis. Overall, differential considerations include pulmonary edema, ARDS, acute interstitial pneumonitis, or potentially a viral pneumonitis. Mediastinal lymphadenopathy, presumably reactive. Main pulmonary arterial enlargement. Correlate for pulmonary hypertension. Moderate dilatation of the mid ascending thoracic aorta measuring 4.5 cm in short axis. TECHNICAL DOCUMENTATION: Quality ID # 436: Final reports with documentation of one or more dose reduction techniques (e.g., Automated exposure control, adjustment of the mA and/or kV according to patient size, use of iterative reconstruction technique) copyright 2011 [employer]- All Rights Reserved KUB X-Ray 12/13/19 09:58 IMPRESSION: Nasogastric tube in the stomach. Chest X-Ray 12/15/19 06:00 IMPRESSION: Improving aeration of the lungs. Assessment and Plan - Diagnosis (1) Respiratory failure with hypoxia Qualifiers: Chronicity: acute on chronic Qualified Code(s): J96.21 - Acute and chronic respiratory failure with hypoxia Is this a current diagnosis for this admission?: Yes Plan: IMP: Respspiratory failure due to a combination of issues History of pulmonary fibrosis Significant cardiomyopathy Obesity Has no focal infiltrates but the fever is noted Blood cultures may well be contamination Plan: Change back to volume ventilation IMV with pressure support is a good way to wean this patient DC IV fluids 1 dose of Lasix Additional set of blood cultures from his central right IJ DC art line Critical Time Critical Time (minutes): 35 Level of Care: ICU -: 1. The care of a critical patient is a dynamic process. This note is a business center representative synopsis but static in nature. The timeframe for treatments given in order is not necessarily the actual time these treatments may have been done. 2. This patient requires critical care secondary to ongoing requirements for therapy not offered or safe outside the critical care environment. Transfer to a lower level of care will result in altered life or limb morbidity and mortality. 3. Multidisciplinary rounds completed. 4. ABCDE bundle addressed.
[2019-12-15] MEDS: INSULIN GLARGINE,HUM.REC.ANLOG 1,000 UNIT/10 ML VIAL SUBCUT SCH (14:21)
[2019-12-15] MEDS ORDERED: FUROSEMIDE INJ/PF 40 MG/4 ML SDV IV ONE (14:21)
[2019-12-15] MEDS: AMINO AC/PROTEIN HYDR/WHEY PRO 11 GM/45 ML PKT NG SCH (22:30)
[2019-12-16] MEDS: INSULIN LISPRO 100 UNIT/ML 3 ML VIAL SUBCUT SCH ×4 (00:40→18:26)
[2019-12-16] MEDS ORDERED: ACETAMINOPHEN 1,000 MG/100 ML RTUPB IV ONE ×3 (04:00→21:32)
[2019-12-16] MEDS: FENTANYL CITRATE/PF 600 MCG/60 ML BAG IV PRN ×3 (04:04→19:23)
[2019-12-16 04:30] LABS: ABSOLUTE LYMPHOCYTES (AUTO) 1.2 10^3/uL (0.5-4.7); ABSOLUTE NEUT (AUTO) 8.7 10^3/uL (1.7-8.2); HEMATOCRIT 39.2 % (37.9-51.0); HEMOGLOBIN 13.2 g/dL (13.5-17.0); LYMPHOCYTES % (AUTO) 10.6 % (13-45); MEAN CORPUSCULAR HEMOGLOBIN 32.6 pg (27.0-33.4); MEAN CORPUSCULAR HGB CONC 33.6 g/dL (32.0-36.0); MEAN CORPUSCULAR VOLUME 97 fl (80-97); MONOCYTES % (AUTO) 8.8 % (3-13); PLATELET COUNT 248 10^3/uL (150-450); RED BLOOD COUNT 4.03 10^6/uL (4.35-5.55); RED CELL DISTRIBUTION WIDTH 13.5 % (11.5-14.0); SEGMENTED NEUTROPHILS % (AUTO) 80.6 % (42-78); TOTAL CELLS COUNTED % (AUTO) 100 %; WHITE BLOOD COUNT 10.8 10^3/uL (4.0-10.5)
[2019-12-16 04:43] LABS: ANION GAP 6 (5-19); BLOOD UREA NITROGEN 31 mg/dL (7-20); CALCIUM 8.5 mg/dL (8.4-10.2); CARBON DIOXIDE 34 mmol/L (22-30); CHLORIDE 102 mmol/L (98-107); GLUCOSE 146 mg/dL (75-110); PHOSPHORUS 3.2 mg/dL (2.5-4.5); POTASSIUM 3.6 mmol/L (3.6-5.0)
[2019-12-16] MEDS: AMINO AC/PROTEIN HYDR/WHEY PRO 11 GM/45 ML PKT NG SCH ×3 (05:06→22:36)
[2019-12-16] MEDS: HYDROCORTISONE SOD SUCCINATE INJ/PF 100 MG/2 ML SDV IV SCH ×3 (05:06→22:36)
[2019-12-16 05:38] LABS: ARTERIAL BLOOD H2CO3 1.26 mmol/L (1.05-1.35); ARTERIAL BLOOD HCO3 29.3 mmol/L (20-24); ARTERIAL BLOOD O2 SATURATION 97.1 % (94-98); ARTERIAL BLOOD PCO2 41.9 mmHg (35-45); ARTERIAL BLOOD PH 7.46 (7.35-7.45); ARTERIAL BLOOD PO2 87.8 mmHg (80-100); ARTERIAL BLOOD TOTAL CO2 30.6 mmol/L (23-27)
[2019-12-16 05:45] LABS: ARTERIAL BLOOD FIO2 60%
--- NOTE | 2019-12-16 06:38 | RADIOLOGY REPORT (SQ) ---
Chest one view on 12/16/2019 at 6:05 AM CLINICAL INDICATION: Respiratory failure COMPARISON: 12/15/2019 FINDINGS: ET tube tip is in the mid to lower thoracic trachea. NG tube extends into the distal stomach. Right IJ catheter tip is in the right atrium. 2-lead left subclavian pacemaker is noted in place. Cardiomegaly is noted. There are continued left greater than right opacities consistent with asymmetric edema and/or pneumonia. This may be superimposed on chronic interstitial changes. Vascular calcification is noted in the aorta. IMPRESSION: No significant change in the appearance of the chest.
[2019-12-16] MEDS ORDERED: ACETAMINOPHEN SOLN 325 MG/10.15 ML UDCUP NG PRN (10:00)
[2019-12-16] MEDS ORDERED: POTASSIUM CHLORIDE 20 MEQ PACKET NG SCH ×2 (10:00)
[2019-12-16] MEDS: ENOXAPARIN SODIUM INJ 40 MG/0.4 ML DISP.SYRIN SUBCUT SCH (10:07)
[2019-12-16] MEDS: FAMOTIDINE INJ/PF 20 MG/2 ML SDV IV SCH ×2 (10:08→22:36)
[2019-12-16] MEDS: POTASSIUM CHLORIDE 20 MEQ PACKET NG SCH (10:08)
[2019-12-16] MEDS: SENNOSIDES/DOCUSATE 8.6-50 MG 1 EACH TABLET NG SCH ×2 (10:09→18:21)
[2019-12-16] MEDS: IBUPROFEN SUSP 20 MG/1 ML 118 ML NG PRN ×2 (10:10→18:23)
[2019-12-16] MEDS ORDERED: VANCOMYCIN HCL 1,000 MG in DEXTROSE 5%-WATER 250 ML IV ONE (11:00)
[2019-12-16] MEDS: INSULIN GLARGINE,HUM.REC.ANLOG 1,000 UNIT/10 ML VIAL SUBCUT SCH (15:27)
--- NOTE | 2019-12-16 15:55 | PDOC CRITICAL CARE PROG REPORT ---
General Date:: 12/16/19 Resuscitation Status: Full Code Events in the past 12 to 24 Hours:: 79 yo with both chronic pulmonary fibrosis and a significant cardiomyopathy who is very comfortable on the ventilator low-dose pressure support and and IMV rate of 6, FiO2 down to 60% with PEEP at 8 cm.. His compliance is not bad but his oxygenation has been poor. Tolerating NG feeds at 30 an hour. Cultures from the are growing staph epi in 1 set the both bottles. Had a fever again today. Reason for ICU Addmission:: Now intubated but off levophed. Physical Exam Vital Signs: Temp Pulse Resp BP Pulse Ox 102.6 F H 87 16 155/86 H 94 12/16/19 15:00 12/16/19 07:00 12/16/19 15:00 12/16/19 14:42 12/16/19 15:00 Intake & Output 12/15/19 12/16/19 12/17/19 06:59 06:59 06:59 Intake Total 3766 1624 Output Total 2700 4555 1425 Balance 1066 -2931 -1425 Weight 106.4 kg 102.4 kg Weight/Height Weight 102.4 kg Height 5 ft 8 in General appearance: PRESENT: no acute distress, obese Eye exam: PRESENT: conjunctival injection, PERRLA Neck exam: ABSENT: carotid bruit, JVD, lymphadenopathy Respiratory exam: PRESENT: rales, unlabored Cardiovascular exam: PRESENT: RRR GI/Abdominal exam: PRESENT: soft. ABSENT: tenderness Extremities exam: ABSENT: pedal edema Neurological exam: PRESENT: altered - sedated and orally intubated but arousable Laboratory/Radiographs Laboratory Results: 12/16/19 04:10 12/16/19 04:10 12/16/19 12/16/19 12/16/19 04:10 04:10 05:25 WBC 10.8 H RBC 4.03 L Hgb 13.2 L Hct 39.2 MCV 97 MCH 32.6 MCHC 33.6 RDW 13.5 Plt Count 248 Seg Neutrophils % 80.6 H Carbonic Acid 1.26 HCO3/H2CO3 Ratio 23:1 ABG pH 7.46 H ABG pCO2 41.9 ABG pO2 87.8 ABG HCO3 29.3 H ABG O2 Saturation 97.1 ABG Base Excess 5.0 FiO2 60% Sodium 142.1 Potassium 3.6 Chloride 102 Carbon Dioxide 34 H Anion Gap 6 BUN 31 H Creatinine 0.61 Est GFR ( Amer) > 60 Glucose 146 H Calcium 8.5 Phosphorus 3.2 12/11/19 12/11/19 12/11/19 18:49 21:40 21:40 Creatine Kinase 71 CK-MB (CK-2) 0.24 Troponin I < 0.012 < 0.012 NT-Pro-B Natriuret Pep 522 H 548 H Impressions: Chest CT 12/13/19 00:00 IMPRESSION: Widespread bilateral groundglass opacity throughout both lungs with smooth interlobular septal thickening and small bilateral pleural effusions, superimposed upon a nonspecific peripheral fibrosis. Overall, differential considerations include pulmonary edema, ARDS, acute interstitial pneumonitis, or potentially a viral pneumonitis. Mediastinal lymphadenopathy, presumably reactive. Main pulmonary arterial enlargement. Correlate for pulmonary hypertension. Moderate dilatation of the mid ascending thoracic aorta measuring 4.5 cm in short axis. TECHNICAL DOCUMENTATION: Quality ID # 436: Final reports with documentation of one or more dose reduction techniques (e.g., Automated exposure control, adjustment of the mA and/or kV according to patient size, use of iterative reconstruction technique) copyright 2011 [employer] All Rights Reserved KUB X-Ray 12/13/19 09:58 IMPRESSION: Nasogastric tube in the stomach. Chest X-Ray 12/16/19 06:00 IMPRESSION: No significant change in the appearance of the chest. Assessment and Plan - Diagnosis (1) Respiratory failure with hypoxia Qualifiers: Chronicity: acute on chronic Qualified Code(s): J96.21 - Acute and chronic respiratory failure with hypoxia Is this a current diagnosis for this admission?: Yes Plan: Imp: Weaning slowly but oxygen requirment still high Fever concerning No room to diurese further with BUN and bicarb up Plan: Cx sputum, urine and blood peripherally today One dose vancomycin D/C Rocephin and Levoquin F/U lab and CXR in am Critical Time Critical Time (minutes): 35 Level of Care: ICU -: 1. The care of a critical patient is a dynamic process. This note is a sales development representative synopsis but static in nature. The timeframe for treatments given in order is not necessarily the actual time these treatments may have been done. 2. This patient requires critical care secondary to ongoing requirements for therapy not offered or safe outside the critical care environment. Transfer to a lower level of care will result in altered life or limb morbidity and mortality. 3. Multidisciplinary rounds completed. 4. ABCDE bundle addressed.
[2019-12-17] MEDS: INSULIN LISPRO 100 UNIT/ML 3 ML VIAL SUBCUT SCH ×5 (00:11→23:27)
[2019-12-17] MEDS: FENTANYL CITRATE/PF 600 MCG/60 ML BAG IV PRN ×4 (02:04→23:31)
[2019-12-17] MEDS: IBUPROFEN SUSP 20 MG/1 ML 118 ML NG PRN (02:08)
[2019-12-17 03:48] LABS: ABSOLUTE MONOCYTES (AUTO) 0.8 10^3/uL (0.1-1.4); ABSOLUTE NEUT (AUTO) 9.9 10^3/uL (1.7-8.2); BASOPHILS % (AUTO) 0.1 % (0-2); HEMATOCRIT 42.5 % (37.9-51.0); HEMOGLOBIN 14.1 g/dL (13.5-17.0); LYMPHOCYTES % (AUTO) 8.6 % (13-45); MEAN CORPUSCULAR HEMOGLOBIN 32.3 pg (27.0-33.4); MEAN CORPUSCULAR HGB CONC 33.2 g/dL (32.0-36.0); MEAN CORPUSCULAR VOLUME 97 fl (80-97); MONOCYTES % (AUTO) 6.8 % (3-13); PLATELET COUNT 268 10^3/uL (150-450); RED BLOOD COUNT 4.37 10^6/uL (4.35-5.55); RED CELL DISTRIBUTION WIDTH 13.8 % (11.5-14.0); SEGMENTED NEUTROPHILS % (AUTO) 84.5 % (42-78); TOTAL CELLS COUNTED % (AUTO) 100 %; WHITE BLOOD COUNT 11.7 10^3/uL (4.0-10.5)
[2019-12-17 03:52] LABS: ALBUMIN 3.1 g/dL (3.5-5.0); ALKALINE PHOSPHATASE 69 U/L (38-126); ANION GAP 6 (5-19); ASPARTATE AMINO TRANSFERASE 48 U/L (17-59); BILIRUBIN,TOTAL 0.9 mg/dL (0.2-1.3); BLOOD UREA NITROGEN 32 mg/dL (7-20); CALCIUM 8.3 mg/dL (8.4-10.2); CARBON DIOXIDE 33 mmol/L (22-30); CHLORIDE 102 mmol/L (98-107); GLUCOSE 248 mg/dL (75-110); POTASSIUM 3.4 mmol/L (3.6-5.0); TOTAL PROTEIN 6.1 g/dL (6.3-8.2)
[2019-12-17 06:22] LABS: APPEARANCE,URINE CLEAR; BILIRUBIN,URINE NEGATIVE (NEGATIVE); COLOR,URINE YELLOW; GLUCOSE, URINE >=500 mg/dL (NEGATIVE); KETONES,URINE 20 mg/dL (NEGATIVE); LEUKOCYTE ESTERASE,URINE NEGATIVE (NEGATIVE); NITRITE,URINE NEGATIVE (NEGATIVE); PROTEIN,URINE 30 mg/dL (NEGATIVE); URINE SPECIFIC GRAVITY 1.039; UROBILINOGEN,URINE NEGATIVE mg/dL (<2.0)
[2019-12-17] MEDS: HYDROCORTISONE SOD SUCCINATE INJ/PF 100 MG/2 ML SDV IV SCH ×3 (06:29→21:01)
[2019-12-17] MEDS: AMINO AC/PROTEIN HYDR/WHEY PRO 11 GM/45 ML PKT NG SCH ×3 (06:29→21:01)
--- NOTE | 2019-12-17 07:32 | RADIOLOGY REPORT (SQ) ---
EXAM: XR Chest, 1 View EXAM DATE/TIME: 12/17/2019 6:17 AM CLINICAL HISTORY: The patient is 79 years old and is Male; pneumonia TECHNIQUE: Frontal view of the chest. COMPARISON: Chest radiograph from 12/16/2019 FINDINGS: LUNGS: The lungs remain hypoinflated. Ill-defined opacities again noted in the lungs, with slight interval worsening on the left. PLEURAL SPACE: No significant pleural effusion appreciated. No obvious pneumothorax. HEART: Stable enlargement of the cardiac silhouette. MEDIASTINUM: Unremarkable. BONES/JOINTS: The bones are unchanged. TUBES, LINES AND DEVICES: Right internal jugular central venous catheter terminates in the right atrium. An enteric tube is in place, coursing into the stomach and terminating below the field of view. Dual-chamber left-sided pacemaker in place with leads unchanged in position. Endotracheal tube terminates 2.5 cm above the sara. IMPRESSION: Ill-defined opacities again noted in the lungs, with slight interval worsening on the left. Findings may represent asymmetric edema and/or pneumonia.
[2019-12-17] MEDS ORDERED: DOXYCYCLINE HYCLATE INJ 100 MG VIAL IV ONE (10:00)
--- NOTE | 2019-12-17 10:12 | XCELERA REPORT ---
[address] [address] Transthoracic Echocardiogram Report Name: MYRANDA BARKSDALE Age: 79 yrs Gender: Male : 1940 Patient Status: Inpatient Patient Location: ICU^604^A Study Date: 12/15/2019 09:13 AM Height: 68 in Weight: 238 lb BSA: 2.2 m2 Procedure: A two-dimensional transthoracic echocardiogram with color flow and Doppler was performed. Study Quality: Poor. The study was technically limited with all images being suboptimal in quality. Reason For Study: Heart failure; need to determine severity/therapy History: CHF. Ordering Physician: DARRYL PHILIPPE Performed By: Shari Rocha Interpretation Summary The left ventricle is mildly dilated. There is normal left ventricular wall thickness. LV EF is 35% to 40% Left ventricular systolic function is moderately reduced. Doppler measurements suggest impaired left ventricular relaxation, which is associated with grade I/IV or mild diastolic dysfunction There is moderate global hypokinesis of the left ventricle. There is no thrombus. Cannot assess ASD ,VSD or PFO The right ventricle is not well visualized secondary to technical limitations The right ventricle is mild to moderately dilated. Pacemaker / AICD lead in RA and RV. The right atrium is normal. The left atrium is mildly dilated. There is mild mitral annular calcification. There is no evidence of mitral valve prolapse. There is no vegetation seen on the mitral valve. There is no mitral valve stenosis. There is a mild amount of mitral regurgitation There is mild aortic stenosis There is a peak gradient of 19 mm of Hg. There is a trace amount of aortic regurgitation There is no tricuspid stenosis. There is a mild amount of tricuspid regurgitation There is servere pulmonary hypertension by echo RVSP is aat least 80 mm of Hg with RA mean of at least 20. There is no pulmonic valvular stenosis. There is a trace amount of pulmonic regurgitation The aortic root is moderately dilated The inferior vena cava appeared dilated and did not change with respiration (RAP > 20 mmHg) There is no pericardial effusion. MMode/2D Measurements & Calculations RVDd: 4.5 cm LVIDd: 5.6 cm FS: 21.3 % Ao root diam: 4.2 cm IVSd: 1.0 cm LVIDs: 4.4 cm EDV(Teich): 155.9 ml Ao root area: 13.6 cm2 LVPWd: 0.92 cm ESV(Teich): 89.3 ml EF(Teich): 42.7 % LVOT diam: 2.2 cm LVOT area: 4.0 cm2 Doppler Measurements & Calculations MV E max dolores: MV dec slope: Ao V2 max: AI max dolores: 53.5 cm/sec 327.5 cm/sec2 220.5 cm/sec 348.7 cm/sec MV A max dolores: MV dec time: Ao max PG: AI max P.6 mmHg 89.8 cm/sec 0.16 sec 19.4 mmHg AI dec slope: MV E/A: 0.60 EULALIO(V,D): 1.5 cm2 207.2 cm/sec2 AI P1/2t: 493.0 msec LV V1 max PG: PA V2 max: PI end-d dolores: TR max dolores: 3.0 mmHg 76.4 cm/sec 164.9 cm/sec 383.6 cm/sec LV V1 max: PA max P.3 mmHg TR max P.1 mmHg 86.0 cm/sec Left Ventricle The left ventricle is mildly dilated. There is normal left ventricular wall thickness. LV EF is 35% to 40%. Left ventricular systolic function is moderately reduced. Doppler measurements suggest impaired left ventricular relaxation, which is associated with grade I/IV or mild diastolic dysfunction. There is moderate global hypokinesis of the left ventricle. There is no thrombus. Cannot assess ASD ,VSD or PFO. Right Ventricle The right ventricle is not well visualized secondary to technical limitations. The right ventricle is mild to moderately dilated. Pacemaker / AICD lead in RA and RV. The right ventricular systolic function is moderately reduced. Atria The right atrium is normal. Right atrium not well visualized secondary to technical limitations. The left atrium is mildly dilated. Mitral Valve There is mild mitral annular calcification. There is no evidence of mitral valve prolapse. There is no vegetation seen on the mitral valve. There is no mitral valve stenosis. There is a mild amount of mitral regurgitation. Aortic Valve There is no aortic valvular vegetation. There is mild aortic stenosis. There is a peak gradient of 19 mm of Hg. There is a trace amount of aortic regurgitation. Tricuspid Valve There is no tricuspid stenosis. There is a mild amount of tricuspid regurgitation. There is servere pulmonary hypertension by echo. RVSP is aat least 80 mm of Hg with RA mean of at least 20. Pulmonic Valve There is no pulmonic valvular stenosis. There is a trace amount of pulmonic regurgitation. Great Vessels The aortic root is moderately dilated. The inferior vena cava appeared dilated and did not change with respiration (RAP > 20 mmHg). Effusions There is no pericardial effusion. : DARRYL PHILIPPE Lakshmi
[2019-12-17] MEDS: ENOXAPARIN SODIUM INJ 40 MG/0.4 ML DISP.SYRIN SUBCUT SCH (10:17)
[2019-12-17] MEDS: POTASSIUM CHLORIDE 20 MEQ PACKET NG SCH (10:23)
[2019-12-17] MEDS: FAMOTIDINE INJ/PF 20 MG/2 ML SDV IV SCH ×2 (10:23→21:02)
[2019-12-17] MEDS: SENNOSIDES/DOCUSATE 8.6-50 MG 1 EACH TABLET NG SCH ×2 (10:24→17:55)
--- NOTE | 2019-12-17 11:03 | PDOC CRITICAL CARE PROG REPORT ---
General Date:: 12/17/19 Hospital Day:: 7 Resuscitation Status: Full Code Events in the past 12 to 24 Hours:: 79 yo with both chronic pulmonary fibrosis and a significant cardiomyopathy who remains comfortable on the ventilator on low-dose pressure support and and IMV rate of 6 but FiO2 back up to 75% with PEEP at 8 cm after an episode of possible aspiration this morning. His compliance is not bad but his oxygenation has been poor. NG feeds now off. Cultures from the are growing staph epi in 1 set the both bottles, blood cultures 1 set from each last 2 days are negative thus far. He continues to have fevers again today. Reason for ICU Addmission:: Now intubated but off levophed. Physical Exam Vital Signs: Temp Pulse Resp BP Pulse Ox 102.0 F H 105 H 15 149/71 H 94 12/17/19 04:00 12/16/19 19:00 12/17/19 06:00 12/17/19 05:41 12/17/19 08:45 Intake & Output 12/16/19 12/17/19 12/18/19 06:59 06:59 06:59 Intake Total 1624 2116 Output Total 4555 4245 Balance -2931 -2129 Weight 102.4 kg 104.7 kg Weight/Height Weight 104.7 kg Height 5 ft 8 in General appearance: PRESENT: no acute distress, obese - Orally intubated and sedated Head exam: PRESENT: normocephalic Eye exam: PRESENT: conjunctival injection, EOMI, PERRLA Neck exam: ABSENT: carotid bruit, JVD, lymphadenopathy, thyromegaly Respiratory exam: PRESENT: rales. ABSENT: wheezes GI/Abdominal exam: PRESENT: diminished bowel sounds, soft. ABSENT: tenderness Extremities exam: ABSENT: pedal edema Skin exam: PRESENT: dry, warm Laboratory/Radiographs Laboratory Results: 12/17/19 03:20 12/17/19 03:20 12/17/19 12/17/19 12/17/19 03: 03:20 05:40 WBC 11.7 H RBC 4.37 Hgb 14.1 Hct 42.5 MCV 97 MCH 32.3 MCHC 33.2 RDW 13.8 Plt Count 268 Seg Neutrophils % 84.5 H Sodium 141.1 Potassium 3.4 L Chloride 102 Carbon Dioxide 33 H Anion Gap 6 BUN 32 H Creatinine 0.57 Est GFR ( Amer) > 60 Glucose 248 H Calcium 8.3 L Total Bilirubin 0.9 AST 48 Alkaline Phosphatase 69 Total Protein 6.1 L Albumin 3.1 L Urine Color YELLOW Urine Appearance CLEAR Urine pH 6.0 Ur Specific [place] 1.039 Urine Protein 30 H Urine Glucose (UA) >=500 H Urine Ketones 20 H Urine Blood SMALL H Urine Nitrite NEGATIVE Ur Leukocyte Esterase NEGATIVE Urine WBC (Auto) 1 Urine RBC (Auto) 5 12/15/19 12:10 Blood Blood Culture (PCR) - Final Staphylococcus Species 12/11/19 21:40 Blood Blood Culture - Final NO GROWTH IN 5 DAYS 12/11/19 12/11/19 12/11/19 18:49 21:40 21:40 Creatine Kinase 71 CK-MB (CK-2) 0.24 Troponin I < 0.012 < 0.012 NT-Pro-B Natriuret Pep 522 H 548 H Impressions: Chest CT 12/13/19 00:00 IMPRESSION: Widespread bilateral groundglass opacity throughout both lungs with smooth interlobular septal thickening and small bilateral pleural effusions, superimposed upon a nonspecific peripheral fibrosis. Overall, differential considerations include pulmonary edema, ARDS, acute interstitial pneumonitis, or potentially a viral pneumonitis. Mediastinal lymphadenopathy, presumably reactive. Main pulmonary arterial enlargement. Correlate for pulmonary hypertension. Moderate dilatation of the mid ascending thoracic aorta measuring 4.5 cm in short axis. TECHNICAL DOCUMENTATION: Quality ID # 436: Final reports with documentation of one or more dose reduction techniques (e.g., Automated exposure control, adjustment of the mA and/or kV according to patient size, use of iterative reconstruction technique) copyright 2011 [employer]- All Rights Reserved KUB X-Ray 12/13/19 09:58 IMPRESSION: Nasogastric tube in the stomach. Chest X-Ray 12/17/19 07:00 IMPRESSION: Ill-defined opacities again noted in the lungs, with slight interval worsening on the left. Findings may represent asymmetric edema and/or pneumonia. Assessment and Plan - Diagnosis (1) Respiratory failure with hypoxia Qualifiers: Chronicity: acute on chronic Qualified Code(s): J96.21 - Acute and chronic respiratory failure with hypoxia Is this a current diagnosis for this admission?: Yes Plan: Imp: Weaning slowly but oxygen requirements back up Possible aspiration event this morning with more infiltrate on the left Fever concerning, coronavirus testing should be back today No room to diurese further with BUN and bicarb up Plan: Start doxycycline at 100 mg IV every 12 Low intermittent suction on NG for now May need to go up on the PEEP again I spoke with his at length twice today She will speak with her children about his CODE STATUS F/U lab and CXR in am Critical Time Critical Time (minutes): 45 Level of Care: ICU -: 1. The care of a critical patient is a dynamic process. This note is a associate sales representative synopsis but static in nature. The timeframe for treatments given in order is not necessarily the actual time these treatments may have been done. 2. This patient requires critical care secondary to ongoing requirements for therapy not offered or safe outside the critical care environment. Transfer to a lower level of care will result in altered life or limb morbidity and mortality. 3. Multidisciplinary rounds completed. 4. ABCDE bundle addressed.
[2019-12-17] MEDS: DOXYCYCLINE HYCLATE 100 MG in DEXTROSE 5%-WATER 250 ML IV SCH ×2 (11:09→22:08)
[2019-12-17] MEDS: INSULIN GLARGINE,HUM.REC.ANLOG 1,000 UNIT/10 ML VIAL SUBCUT SCH (13:27)
[2019-12-17] MEDS ORDERED: DAPTOMYCIN INJ 500 MG VIAL IV ONE (14:01)
[2019-12-17] MEDS: LOSARTAN POTASSIUM 50 MG TABLET NG SCH (17:55)
[2019-12-17] MEDS: NORMAL SALINE IV SCH (17:55)
[2019-12-17] MEDS: DAPTOMYCIN IV SCH (17:55)
[2019-12-17] MEDS ORDERED: MIDAZOLAM 2 MG/2 ML INJ ONE (21:08)
[2019-12-17] MEDS ORDERED: MIDAZOLAM 2 MG/2 ML INJ IV ONE (22:45)
--- NOTE | 2019-12-18 00:05 | RADIOLOGY REPORT (SQ) ---
EXAM DESCRIPTION: XR CHEST 1 VIEW COMPLETED DATE/TME: 12/17/2019 00:00 CLINICAL HISTORY: 79 years Male, Central Line Placement COMPARISON: One day prior. NUMBER OF VIEWS/TECHNIQUE: 1/AP Limitation: Backboard/external hardware artifact. FINDINGS: Mild to moderate mixed interstitial and airspace opacities, left more than right. Adequate appearing endotracheal tube. Adequate appearing enteric tube partially obscured. Adequate appearing right jugular central line. Atherosclerotic vascular disease. Moderately enlarged cardiac silhouette. Moderate lung volume. No pneumothorax. Stable bony thorax. IMPRESSION: Mild to moderate mixed interstitial and airspace opacities, left more than right. Interval improvement.
[2019-12-18] MEDS ORDERED: NORMAL SALINE INJ/PF 0.9% 10 ML SDV IV PRN (02:57)
--- NOTE | 2019-12-18 03:07 | Operative Report ---
Bedside Procedure - History of Present Illness History of Present Illness: Procedure: Central line placement Indication: Fluid and medication administration Procedure commutator operator: Feliz Herrera Consent: Consent was obtained from patient prior to the procedure. Indications, risks, and benefits were explained and all questions were addressed. Procedure summary: The [facility] central line insertion practice form was completed by RN. A timeout was performed. My hands were washed immediately prior to the procedure. I wore surgical cap, mask with protective eyewear, full gown and sterile gloves throughout the procedure. The patient was placed in Trendelenburg position. RIGHT chest region was prepped using chlorhexidine scrub and draped in sterile fashion using a full drape. Sterile probe cover was placed on ultrasound probe. The medial and lateral heads of the sternocleidomastoid muscle were identified as was the carotid pulse. The internal jugular vein was identified using ultrasound. Anesthesia was achieved over the vein using 4 cc of 1% lidocaine. Using real-time out of plane guidance, the introducer needle was inserted into the internal jugular vein under direct ultrasound visualization. Venous blood was withdrawn. The syringe was removed and a guidewire was advanced into the introducer needle. The guide wire was visualized in the internal jugular vein by ultrasound. A small incision was made at the skin surface with a scalpel and the introducer needle was exchanged for a dilator over the guide wire. After appropriate dilation was obtained, the dilator was exchanged over a wire for a 7 Singaporean, 20 cm central venous catheter. The wire was removed and the catheter was sutured in place at 15 cm. A IO patch was placed and a sterile Sorbaview shield was placed over the catheter at the insertion site. The patient tolerated the procedure well without any hemodynamic compromise. At time of procedure completion, all ports aspirated and flushed properly. Postprocedure x-ray shows central line in proper place. Estimated blood loss is approximately 5 cc. Indication for Procedure: Medication and Fluid administration. Date: 12/13/19 Provider: FELIZ HERRERA - Central Line Right Time completed: 21:00 Consent obtained: Yes Central line pre-insertion: Sterile PPE donned, Chloraprep applied, Sterile drapes applied Central line lumen type: Triple Anesthetic type: 1% Lidocaine mL's of anesthesia: 3 CM at insertion site: 15 Line secured with sutures: Yes Central line post-insertion: Blood return from lumens, Biopatch applied, Sutured, Sterile dressing applied, Position confirmed w/ CXR Number of attempts: 1
[2019-12-18 03:49] LABS: ABSOLUTE LYMPHOCYTES (AUTO) 1.1 10^3/uL (0.5-4.7); ABSOLUTE MONOCYTES (AUTO) 1.1 10^3/uL (0.1-1.4); ABSOLUTE NEUT (AUTO) 12.4 10^3/uL (1.7-8.2); BASOPHILS % (AUTO) 0.1 % (0-2); HEMATOCRIT 46.2 % (37.9-51.0); HEMOGLOBIN 15.1 g/dL (13.5-17.0); LYMPHOCYTES % (AUTO) 7.8 % (13-45); MEAN CORPUSCULAR HEMOGLOBIN 32.3 pg (27.0-33.4); MEAN CORPUSCULAR HGB CONC 32.8 g/dL (32.0-36.0); MEAN CORPUSCULAR VOLUME 99 fl (80-97); MONOCYTES % (AUTO) 7.4 % (3-13); PLATELET COUNT 267 10^3/uL (150-450); RED BLOOD COUNT 4.69 10^6/uL (4.35-5.55); RED CELL DISTRIBUTION WIDTH 14.1 % (11.5-14.0); SEGMENTED NEUTROPHILS % (AUTO) 84.7 % (42-78); TOTAL CELLS COUNTED % (AUTO) 100 %; WHITE BLOOD COUNT 14.6 10^3/uL (4.0-10.5)
[2019-12-18 04:11] LABS: BLOOD UREA NITROGEN 44 mg/dL (7-20); CALCIUM 8.9 mg/dL (8.4-10.2); GLUCOSE 248 mg/dL (75-110); POTASSIUM 3.7 mmol/L (3.6-5.0)
[2019-12-18 04:16] LABS: CARBON DIOXIDE 36 mmol/L (22-30); CHLORIDE 104 mmol/L (98-107)
[2019-12-18 04:19] LABS: ANION GAP 3 (5-19)
[2019-12-18] MEDS: AMINO AC/PROTEIN HYDR/WHEY PRO 11 GM/45 ML PKT NG SCH ×3 (05:19→22:21)
[2019-12-18] MEDS: HYDROCORTISONE SOD SUCCINATE INJ/PF 100 MG/2 ML SDV IV SCH ×3 (05:25→22:21)
[2019-12-18] MEDS: FENTANYL CITRATE/PF 600 MCG/60 ML BAG IV PRN ×5 (05:30→22:19)
[2019-12-18] MEDS: INSULIN LISPRO 100 UNIT/ML 3 ML VIAL SUBCUT SCH ×3 (05:31→17:31)
[2019-12-18] MEDS ORDERED: BISACODYL 10 MG SUPP.RECT PR ONE (06:36)
[2019-12-18] MEDS ORDERED: METOPROLOL TARTRATE PF/INJ 5 MG/5 ML SDV IV ONE ×2 (07:31→08:30)
--- NOTE | 2019-12-18 09:17 | RADIOLOGY REPORT (SQ) ---
EXAM DESCRIPTION: CHEST SINGLE VIEW COMPLETED DATE/TIME: 12/18/2019 9:08 am REASON FOR STUDY: pneumonia COMPARISON: 12/17/2019 NUMBER OF VIEWS: One view. TECHNIQUE: Single frontal radiographic image of the chest acquired. LIMITATIONS: None. FINDINGS: LUNGS AND PLEURA: Stable appearance. MEDIASTINUM AND HILAR STRUCTURES: Stable heart size and mediastinal structures. HEART AND VASCULAR STRUCTURES: Stable appearance. SUPPORT DEVICES: Appropriate location without change. BONES: No acute findings. OTHER: No other significant finding. IMPRESSION: STABLE APPEARANCE OF THE CHEST. SUPPORT DEVICES UNCHANGED. TECHNICAL DOCUMENTATION: JOB ID: [id number] 2010 [email or web address]- All Rights Reserved Reading location - IP/workstation name: [email or web address]
[2019-12-18] MEDS: ENOXAPARIN SODIUM INJ 40 MG/0.4 ML DISP.SYRIN SUBCUT SCH (10:16)
[2019-12-18] MEDS: POTASSIUM CHLORIDE 20 MEQ PACKET NG SCH (10:17)
[2019-12-18] MEDS: FAMOTIDINE INJ/PF 20 MG/2 ML SDV IV SCH ×2 (10:17→22:21)
[2019-12-18] MEDS: SENNOSIDES/DOCUSATE 8.6-50 MG 1 EACH TABLET NG SCH ×2 (10:17→17:31)
[2019-12-18] MEDS: METOPROLOL TARTRATE 50 MG TABLET NG SCH ×2 (10:17→22:21)
[2019-12-18] MEDS: DOXYCYCLINE HYCLATE 100 MG in DEXTROSE 5%-WATER 250 ML IV SCH ×2 (10:18→22:19)
[2019-12-18] MEDS: INSULIN GLARGINE,HUM.REC.ANLOG 1,000 UNIT/10 ML VIAL SUBCUT SCH (13:48)
--- NOTE | 2019-12-18 16:12 | PDOC CRITICAL CARE PROG REPORT ---
General Date:: 12/18/19 Resuscitation Status: Full Code Events in the past 12 to 24 Hours:: 79 yo with both chronic pulmonary fibrosis and a significant cardiomyopathy who remains comfortable on the ventilator on low-dose pressure support and and IMV rate of 8 but FiO2 back up to 60% with PEEP at 8 cm. His compliance is not bad but his oxygenation has been poor. NG feeds back on now. Cultures from the are growing staph epi in 1 set the both bottles, blood cultures 1 set from each of last 2 days is growing a coag negative staph but the other 1 is negative. Fevers down today but white count is up. Reason for ICU Addmission:: Now intubated but off levophed. Physical Exam Vital Signs: Temp Pulse Resp BP Pulse Ox 101.7 F H 120 H 13 113/61 95 12/18/19 14:00 12/18/19 08:00 12/18/19 14:00 12/18/19 13:54 12/18/19 14:00 Intake & Output 12/17/19 12/18/19 12/19/19 06:59 06:59 06:59 Intake Total 2116 1370 Output Total 4245 2020 325 Balance -2129 -650 -325 Weight 104.7 kg 104 kg Weight/Height Weight 104 kg Height 5 ft 8 in General appearance: PRESENT: no acute distress, obese Eye exam: PRESENT: EOMI, PERRLA. ABSENT: conjunctival injection Mouth exam: PRESENT: neck supple Neck exam: ABSENT: JVD, lymphadenopathy, thyromegaly Respiratory exam: PRESENT: rales, unlabored Cardiovascular exam: PRESENT: RRR Pulses: PRESENT: +1 pedal pulses bilateral GI/Abdominal exam: PRESENT: soft. ABSENT: tenderness Neurological exam: PRESENT: altered - Sedated and orally intubated Skin exam: PRESENT: dry, warm Laboratory/Radiographs Laboratory Results: 12/18/19 03:30 12/18/19 03:30 12/18/19 12/18/19 03:30 03:30 WBC 14.6 H RBC 4.69 Hgb 15.1 Hct 46.2 MCV 99 H MCH 32.3 MCHC 32.8 RDW 14.1 H Plt Count 267 Seg Neutrophils % 84.7 H Sodium 143.1 Potassium 3.7 Chloride 104 Carbon Dioxide 36 H Anion Gap 3 L BUN 44 H Creatinine 0.62 Est GFR ( Amer) > 60 Glucose 248 H Calcium 8.9 12/15/19 12:10 Blood Blood Culture (PCR) - Final Staphylococcus Species 12/16/19 10:25 Catheterized Urine Urine Culture - Final NO GROWTH 2 DAYS 12/11/19 12/11/19 12/11/19 18:49 21:40 21:40 Creatine Kinase 71 CK-MB (CK-2) 0.24 Troponin I < 0.012 < 0.012 NT-Pro-B Natriuret Pep 522 H 548 H Impressions: Chest CT 12/13/19 00:00 IMPRESSION: Widespread bilateral groundglass opacity throughout both lungs with smooth interlobular septal thickening and small bilateral pleural effusions, superimposed upon a nonspecific peripheral fibrosis. Overall, differential considerations include pulmonary edema, ARDS, acute interstitial pneumonitis, or potentially a viral pneumonitis. Mediastinal lymphadenopathy, presumably reactive. Main pulmonary arterial enlargement. Correlate for pulmonary hypertension. Moderate dilatation of the mid ascending thoracic aorta measuring 4.5 cm in short axis. TECHNICAL DOCUMENTATION: Quality ID # 436: Final reports with documentation of one or more dose reduction techniques (e.g., Automated exposure control, adjustment of the mA and/or kV according to patient size, use of iterative reconstruction technique) copyright 2010 [employer]- All Rights Reserved KUB X-Ray 12/13/19 09:58 IMPRESSION: Nasogastric tube in the stomach. Chest X-Ray 12/18/19 07:00 IMPRESSION: STABLE APPEARANCE OF THE CHEST. SUPPORT DEVICES UNCHANGED. Assessment and Plan - Diagnosis (1) Respiratory failure with hypoxia Qualifiers: Chronicity: acute on chronic Qualified Code(s): J96.21 - Acute and chronic respiratory failure with hypoxia Is this a current diagnosis for this admission?: Yes Plan: Imp: Weaning slowly but white count back up Possible aspiration with infiltrate on the left Fever concerning, coronavirus testing should be back today No room to diurese further with BUN and bicarb up Plan: Continue doxycycline at 100 mg IV every 12 Daptomycin started yesterday I spoke with his at length twice yesterday F/U lab and CXR in am 1 more set of blood cultures today Critical Time Critical Time (minutes): 40 Level of Care: ICU -: 1. The care of a critical patient is a dynamic process. This note is a outbound sales representative synopsis but static in nature. The timeframe for treatments given in order is not necessarily the actual time these treatments may have been done. 2. This patient requires critical care secondary to ongoing requirements for therapy not offered or safe outside the critical care environment. Transfer to a lower level of care will result in altered life or limb morbidity and mortality. 3. Multidisciplinary rounds completed. 4. ABCDE bundle addressed.
[2019-12-18] MEDS: LOSARTAN POTASSIUM 50 MG TABLET NG SCH (17:31)
[2019-12-18] MEDS: DAPTOMYCIN IV SCH (19:00)
[2019-12-18] MEDS: NORMAL SALINE IV SCH (19:00)
--- NOTE | 2019-12-18 19:03 | PDOC CONSULTATION ---
Consultation-Blank Consultation: Note the chart has been reviewed in its entirety. IMPRESSION/RECOMMENDATION: 1. History of fevers during this admission with one blood culture being positive for staph epi and the other being positive for Staphylococcus coagulase-negative Staphylococcus. The patient's white count is also up. The question is whether the patient has endocarditis. The patient's does have a permanent pacemaker implant treated in the past. Echocardiogram is suboptimal and poor study and hence no definite vegetations can be seen but in view of the quality of the study cannot be entirely excluded. Hence would recommend the treat the patient for appropriate course of time and recheck the blood cultures and if they are negative then would consider removing the pacemaker system. The patient is not pacemaker dependent. 2. Acute respiratory failure with hypoxia continue intubation and oxygenation. 3. Recent hypotension patient off Levophed at present blood pressure high. 4. Supraventricular tachycardia: Would recommend starting the patient on Lopressor 50 mg by the NG tube every 12 hours. 5. History of pulmonary fibrosis 6. Severe pulmonary hypertension: Later would recommend a centimeters. This may be acute phase secondary to the patient's pneumonia versus ARDS versus acute on heart failure versus a combination of all 3. 7. Abnormal chest x-ray congestive heart failure versus ARDS versus pneumonia or combination of all 3. Continue antibiotics 8. Cardiomyopathy with moderately reduced LV ejection fraction of 35 to 40%. Later would transition the patient to long-acting Toprol-XL and ADAMA inhibitor/ARB 9. Coronary artery disease. History of coronary bypass graft surgery. Later would recommend adding the patient's nitrates if blood pressure tolerates it. 10. 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 11. Dementia Medications reviewed medical regimen and management plan discussed with linen manager. Medical decision making is of high complexity. 60 minutes spent with patient with more than 50% time spent in direct patient care. Will follow. Medications reviewed
[2019-12-19] MEDS ORDERED: DEXMEDETOMIDINE IN 0.9 % NACL 400 MCG/100 ML RTUPB IV ONE (02:14)
[2019-12-19] MEDS ORDERED: DEXMEDETOMIDINE IN NS 400 MCG/100 ML RTUPB IV PRN (02:33)
[2019-12-19] MEDS: FENTANYL CITRATE/PF 600 MCG/60 ML BAG IV PRN (02:40)
[2019-12-19] MEDS: INSULIN LISPRO 100 UNIT/ML 3 ML VIAL SUBCUT SCH ×4 (02:41→18:59)
[2019-12-19] MEDS: HYDROCORTISONE SOD SUCCINATE INJ/PF 100 MG/2 ML SDV IV SCH ×3 (06:31→21:49)
[2019-12-19] MEDS: AMINO AC/PROTEIN HYDR/WHEY PRO 11 GM/45 ML PKT NG SCH ×2 (06:32→14:06)
[2019-12-19 06:44] LABS: ABSOLUTE LYMPHOCYTES (AUTO) 0.8 10^3/uL (0.5-4.7); ABSOLUTE MONOCYTES (AUTO) 0.8 10^3/uL (0.1-1.4); ABSOLUTE NEUT (AUTO) 12.6 10^3/uL (1.7-8.2); BASOPHILS % (AUTO) 0.1 % (0-2); HEMATOCRIT 41.7 % (37.9-51.0); HEMOGLOBIN 13.7 g/dL (13.5-17.0); LYMPHOCYTES % (AUTO) 5.6 % (13-45); MEAN CORPUSCULAR HEMOGLOBIN 32.2 pg (27.0-33.4); MEAN CORPUSCULAR HGB CONC 32.8 g/dL (32.0-36.0); MEAN CORPUSCULAR VOLUME 98 fl (80-97); MONOCYTES % (AUTO) 5.6 % (3-13); PLATELET COUNT 233 10^3/uL (150-450); RED BLOOD COUNT 4.25 10^6/uL (4.35-5.55); RED CELL DISTRIBUTION WIDTH 13.9 % (11.5-14.0); SEGMENTED NEUTROPHILS % (AUTO) 88.7 % (42-78); TOTAL CELLS COUNTED % (AUTO) 100 %; WHITE BLOOD COUNT 14.2 10^3/uL (4.0-10.5)
[2019-12-19 06:54] LABS: BLOOD UREA NITROGEN 58 mg/dL (7-20); POTASSIUM 4.1 mmol/L (3.6-5.0)
[2019-12-19 07:11] LABS: ANION GAP 5 (5-19); CALCIUM 8.5 mg/dL (8.4-10.2); CARBON DIOXIDE 33 mmol/L (22-30); CHLORIDE 105 mmol/L (98-107); GLUCOSE 276 mg/dL (75-110)
[2019-12-19 07:41] LABS: APPEARANCE,URINE SLIGHTLY-CLOUDY; BILIRUBIN,URINE NEGATIVE (NEGATIVE); COLOR,URINE YELLOW; GLUCOSE, URINE >=500 mg/dL (NEGATIVE); KETONES,URINE NEGATIVE (NEGATIVE); LEUKOCYTE ESTERASE,URINE NEGATIVE (NEGATIVE); NITRITE,URINE NEGATIVE (NEGATIVE); PROTEIN,URINE NEGATIVE (NEGATIVE); URINE SPECIFIC GRAVITY 1.033
[2019-12-19 07:56] LABS: ADD MANUAL MICROSCOPIC YES
[2019-12-19 07:57] LABS: WBC,URINE RARE /HPF
[2019-12-19 07:58] LABS: HYALINE CASTS, URINE 0-1 /LPF
--- NOTE | 2019-12-19 08:16 | RADIOLOGY REPORT (SQ) ---
EXAM DESCRIPTION: CHEST SINGLE VIEW COMPLETED DATE/TIME: 12/19/2019 6:53 am REASON FOR STUDY: resp failure COMPARISON: 12/18/2019 NUMBER OF VIEWS: One view. TECHNIQUE: Single frontal radiographic image of the chest acquired. LIMITATIONS: None. FINDINGS: LUNGS AND PLEURA: Stable appearance. MEDIASTINUM AND HILAR STRUCTURES: Stable heart size and mediastinal structures. HEART AND VASCULAR STRUCTURES: Stable appearance. SUPPORT DEVICES: Appropriate location without change. BONES: No acute findings. OTHER: No other significant finding. IMPRESSION: STABLE APPEARANCE OF THE CHEST. SUPPORT DEVICES UNCHANGED. TECHNICAL DOCUMENTATION: JOB ID: [id number] 2010 [employer]- All Rights Reserved Reading location - IP/workstation name: [email or web address]
--- NOTE | 2019-12-19 10:13 | PDOC CRITICAL CARE PROG REPORT ---
General Date:: 12/19/19 Resuscitation Status: Do Not Intubate - I spoke with at length 2 days ago and again today. She is very clear that he should not be reintubated based on his medical diseases and the progressive dementia. Events in the past 12 to 24 Hours:: 79 yo with both chronic pulmonary fibrosis and a significant cardiomyopathy who remains comfortable on the ventilator on low-dose pressure support and and IMV rate of 8 but FiO2 back up to 40% with PEEP at 5 cm. NG feeds off for extubation. He is afebrile and white count is the same today. Reason for ICU Addmission:: Now intubated but off levophed. Physical Exam Vital Signs: Temp Pulse Resp BP Pulse Ox 98.6 F 103 H 20 102/59 L 91 L 12/19/19 08:00 12/19/19 08:00 12/19/19 08:00 12/19/19 08:00 12/19/19 08:00 Intake & Output 12/18/19 12/19/19 12/20/19 06:59 06:59 06:59 Intake Total 1420 3332 Output Total 2020 1285 240 Balance -600 2047 -240 Weight 104 kg 107.4 kg Weight/Height Weight 107.4 kg Height 5 ft 8 in General appearance: PRESENT: no acute distress Head exam: PRESENT: normocephalic Eye exam: PRESENT: EOMI, PERRLA. ABSENT: conjunctival injection Mouth exam: PRESENT: neck supple Neck exam: ABSENT: JVD, lymphadenopathy, thyromegaly Respiratory exam: PRESENT: rales, unlabored. ABSENT: accessory muscle use Cardiovascular exam: PRESENT: RRR Pulses: PRESENT: +1 pedal pulses bilateral GI/Abdominal exam: PRESENT: soft. ABSENT: tenderness Extremities exam: ABSENT: pedal edema Psychiatric exam: PRESENT: other - He is coming around with sedation discontinued. Skin exam: PRESENT: dry, warm Laboratory/Radiographs Laboratory Results: 12/19/19 06:10 12/19/19 06:10 12/19/19 12/19/19 12/19/19 06:10 06:10 06:10 WBC 14.2 H RBC 4.25 L Hgb 13.7 Hct 41.7 MCV 98 H MCH 32.2 MCHC 32.8 RDW 13.9 Plt Count 233 Seg Neutrophils % 88.7 H Sodium 143.4 Potassium 4.1 Chloride 105 Carbon Dioxide 33 H Anion Gap 5 BUN 58 H Creatinine 0.84 Est GFR ( Amer) > 60 Glucose 276 H Calcium 8.5 Urine Color YELLOW Urine Appearance SLIGHTLY-CLOUDY Urine pH 6.0 Ur Specific [place] 1.033 Urine Protein NEGATIVE Urine Glucose (UA) >=500 H Urine Ketones NEGATIVE Urine Blood NEGATIVE Urine Nitrite NEGATIVE Ur Leukocyte Esterase NEGATIVE Ur Squamous Epith Cells FEW 12/15/19 12:10 Blood Blood Culture (PCR) - Final Staphylococcus Species 12/16/19 10:25 Catheterized Urine Urine Culture - Final NO GROWTH 2 DAYS 12/11/19 12/11/19 12/11/19 18:49 21:40 21:40 Creatine Kinase 71 CK-MB (CK-2) 0.24 Troponin I < 0.012 < 0.012 NT-Pro-B Natriuret Pep 522 H 548 H Impressions: Chest CT 12/13/19 00:00 IMPRESSION: Widespread bilateral groundglass opacity throughout both lungs with smooth interlobular septal thickening and small bilateral pleural effusions, superimposed upon a nonspecific peripheral fibrosis. Overall, differential considerations include pulmonary edema, ARDS, acute interstitial pneumonitis, or potentially a viral pneumonitis. Mediastinal lymphadenopathy, presumably reactive. Main pulmonary arterial enlargement. Correlate for pulmonary hypertension. Moderate dilatation of the mid ascending thoracic aorta measuring 4.5 cm in short axis. TECHNICAL DOCUMENTATION: Quality ID # 436: Final reports with documentation of one or more dose reduction techniques (e.g., Automated exposure control, adjustment of the mA and/or kV according to patient size, use of iterative reconstruction technique) copyright 2011 [employer]- All Rights Reserved KUB X-Ray 12/13/19 09:58 IMPRESSION: Nasogastric tube in the stomach. Chest X-Ray 12/19/19 07:15 IMPRESSION: STABLE APPEARANCE OF THE CHEST. SUPPORT DEVICES UNCHANGED. Assessment and Plan - Diagnosis (1) Respiratory failure with hypoxia Qualifiers: Chronicity: acute on chronic Qualified Code(s): J96.21 - Acute and chronic respiratory failure with hypoxia Is this a current diagnosis for this admission?: Yes Plan: Imp: Weaning and ready to extubate Possible aspiration with infiltrate on the left improved Coronavirus testing should be back today, fever resolved No room to diurese further with BUN and bicarb up Plan: Continue doxycycline at 100 mg IV every 12 Daptomycin started 2 days ago I spoke with his again today Extubated and now DNI per discussion with Critical Time Critical Time (minutes): 35 Level of Care: ICU -: 1. The care of a critical patient is a dynamic process. This note is a repre sentative synopsis but static in nature. The timeframe for treatments given in order is not necessarily the actual time these treatments may have been done. 2. This patient requires critical care secondary to ongoing requirements for therapy not offered or safe outside the critical care environment. Transfer to a lower level of care will result in altered life or limb morbidity and mortality. 3. Multidisciplinary rounds completed. 4. ABCDE bundle addressed.
[2019-12-19] MEDS: DOXYCYCLINE HYCLATE 100 MG in DEXTROSE 5%-WATER 250 ML IV SCH ×2 (11:18→21:50)
[2019-12-19] MEDS: ENOXAPARIN SODIUM INJ 40 MG/0.4 ML DISP.SYRIN SUBCUT SCH (11:20)
[2019-12-19] MEDS: FAMOTIDINE INJ/PF 20 MG/2 ML SDV IV SCH ×2 (11:21→21:49)
[2019-12-19] MEDS: METOPROLOL TARTRATE 50 MG TABLET NG SCH ×2 (11:21→21:50)
[2019-12-19] MEDS: POTASSIUM CHLORIDE 20 MEQ PACKET NG SCH (11:22)
[2019-12-19] MEDS: SENNOSIDES/DOCUSATE 8.6-50 MG 1 EACH TABLET NG SCH ×2 (11:23→18:59)
[2019-12-19] MEDS: INSULIN GLARGINE,HUM.REC.ANLOG 1,000 UNIT/10 ML VIAL SUBCUT SCH (14:05)
--- NOTE | 2019-12-19 18:21 | Progress Note ---
Provider Note Provider Note: CARDIOLOGY PROGRESS NOTE by Dr. Nivia Carreon on 12/19/2019. SUBJECTIVE: The patient was extubated but due to respiratory distress the patient is on BiPAP. His has made informed decision that the patient should be a DNI. Hence the patient will not be reintubated. He continues to have respiratory distress and requiring 70% of oxygen to keep his O2 saturations around 90. There is no recurrence of SVT. There is no ventricular is been seen on the monitor. The patient is confused. Not able to give much of a history. PHYSICAL EXAMINATION: The patient is moderate to severely obese. In respiratory distress. Selected Entries 12/19/19 18:00 Temperature 98.5 F Temperature Core Source Pulse Rate 63 Respiratory 14 Rate Blood Pressure 174/86 H [Left Upper Arm ] Blood Pressure 115 Mean [Left Upper Arm] Blood Pressure Supine Position [Left Upper Arm] O2 Sat by Pulse 99 Oximetry Oxygen Delivery Bi-pap Method ( includes room air) Percent of 70 Oxygen HEAD: Atraumatic and normocephalic. PUPILS: Equal round regular reactive to light. ENT is negative. Neck is supple there is mild JVD present carotids are equal there is no bruits. There is no lymphadenopathy. LUNGS: There is diminished air entry there are few leathery crackles. There is also wet rales in the bases and also dry crackles in both lungs. HEART: S1-S2 is heard. There is no S3 gallop. There is no S4 gallop. There is systolic murmur in the left sternal border and the apex. ABDOMEN: Is obese. Nontender there is no) megaly. EXTREMITIES: Femorals are diminished. Leg pulses are diminished there is trace pedal edema bilaterally. LOG RAFTER: The patient is confused but moves all 4 extremities. PSYCHIATRIC not tested. Labs- All tests 24 hr 12/19/19 12/19/19 12/19/19 02:08 05:48 06:10 WBC RBC Hgb Hct MCV MCH MCHC RDW Plt Count Lymph % (Auto) Cascade % (Auto) Eos % (Auto) Baso % (Auto) Absolute Neuts (auto) Absolute Lymphs (auto) Absolute Monos (auto) Absolute Eos (auto) Absolute Basos (auto) Seg Neutrophils % Sodium 143.4 Potassium 4.1 Chloride 105 Carbon Dioxide 33 H Anion Gap 5 BUN 58 H Creatinine 0.84 Est GFR ( Amer) > 60 Est GFR (MDRD) Non-Af > 60 Glucose 276 H POC Glucose 314 H 327 H Calcium 8.5 Urine Color Urine Appearance Urine pH Ur Specific [place] Urine Protein Urine Glucose (UA) Urine Ketones Urine Blood Urine Nitrite Urine Bilirubin Urine Urobilinogen Ur Leukocyte Esterase Urine RBC Urine WBC Ur Squamous Epith Cells Hyaline Casts Urine Ascorbic Acid 12/19/19 12/19/19 12/19/19 06:10 06:10 14:03 WBC 14.2 H RBC 4.25 L Hgb 13.7 Hct 41.7 MCV 98 H MCH 32.2 MCHC 32.8 RDW 13.9 Plt Count 233 Lymph % (Auto) 5.6 L Cascade % (Auto) 5.6 Eos % (Auto) 0.0 Baso % (Auto) 0.1 Absolute Neuts (auto) 12.6 H Absolute Lymphs (auto) 0.8 Absolute Monos (auto) 0.8 Absolute Eos (auto) 0.0 Absolute Basos (auto) 0.0 Seg Neutrophils % 88.7 H Sodium Potassium Chloride Carbon Dioxide Anion Gap BUN Creatinine Est GFR ( Amer) Est GFR (MDRD) Non-Af Glucose POC Glucose 232 H Calcium Urine Color YELLOW Urine Appearance SLIGHTLY-CLOUDY Urine pH 6.0 Ur Specific [place] 1.033 Urine Protein NEGATIVE Urine Glucose (UA) >=500 H Urine Ketones NEGATIVE Urine Blood NEGATIVE Urine Nitrite NEGATIVE Urine Bilirubin NEGATIVE Urine Urobilinogen 2.0 H Ur Leukocyte Esterase NEGATIVE Urine RBC 1-5 Urine WBC RARE Ur Squamous Epith Cells FEW Hyaline Casts 0-1 Urine Ascorbic Acid 40 H 12/19/19 18:53 WBC RBC Hgb Hct MCV MCH MCHC RDW Plt Count Lymph % (Auto) Cascade % (Auto) Eos % (Auto) Baso % (Auto) Absolute Neuts (auto) Absolute Lymphs (auto) Absolute Monos (auto) Absolute Eos (auto) Absolute Basos (auto) Seg Neutrophils % Sodium Potassium Chloride Carbon Dioxide Anion Gap BUN Creatinine Est GFR ( Amer) Est GFR (MDRD) Non-Af Glucose POC Glucose 133 H Calcium Urine Color Urine Appearance Urine pH Ur Specific [place] Urine Protein Urine Glucose (UA) Urine Ketones Urine Blood Urine Nitrite Urine Bilirubin Urine Urobilinogen Ur Leukocyte Esterase Urine RBC Urine WBC Ur Squamous Epith Cells Hyaline Casts Urine Ascorbic Acid Chest X-Ray 12/11/19 18:56 IMPRESSION: Patchy peripheral opacities in both lungs may represent infectious/ inflammatory process. Chest CT 12/13/19 00:00 IMPRESSION: Widespread bilateral groundglass opacity throughout both lungs with smooth interlobular septal thickening and small bilateral pleural effusions, superimposed upon a nonspecific peripheral fibrosis. Overall, differential considerations include pulmonary edema, ARDS, acute interstitial pneumonitis, or potentially a viral pneumonitis. Mediastinal lymphadenopathy, presumably reactive. Main pulmonary arterial enlargement. Correlate for pulmonary hypertension. Moderate dilatation of the mid ascending thoracic aorta measuring 4.5 cm in short axis. TECHNICAL DOCUMENTATION: Quality ID # 436: Final reports with documentation of one or more dose reduction techniques (e.g., Automated exposure control, adjustment of the mA and/or kV according to patient size, use of iterative reconstruction technique) copyright 2010 [employer]- All Rights Reserved Chest X-Ray 12/13/19 00:00 IMPRESSION: No change. Chest X-Ray 12/13/19 00:00 IMPRESSION: Good position of support apparatus. No pneumothorax. Chest X-Ray 12/13/19 00:00 IMPRESSION: Interval placement of right IJ approach central venous catheter with its tip located the cavoatrial junction. Otherwise, stable exam. copyright 2010 [employer]- All Rights Reserved KUB X-Ray 12/13/19 09:58 IMPRESSION: Nasogastric tube in the stomach. Chest X-Ray 12/15/19 06:00 IMPRESSION: Improving aeration of the lungs. Chest X-Ray 12/16/19 06:00 IMPRESSION: No significant change in the appearance of the chest. Chest X-Ray 12/17/19 00:00 IMPRESSION: Mild to moderate mixed interstitial and airspace opacities, left more than right. Interval improvement. Chest X-Ray 12/17/19 07:00 IMPRESSION: Ill-defined opacities again noted in the lungs, with slight interval worsening on the left. Findings may represent asymmetric edema and/or pneumonia. Chest X-Ray 12/18/19 07:00 IMPRESSION: STABLE APPEARANCE OF THE CHEST. SUPPORT DEVICES UNCHANGED. Chest X-Ray 12/19/19 07:15 IMPRESSION: STABLE APPEARANCE OF THE CHEST. SUPPORT DEVICES UNCHANGED. IMPRESSION/RECOMMENDATION: 1. History of fevers during this admission with one blood culture being positive for staph epi and the other being positive for Staphylococcus coagulase-negative Staphylococcus. The patient's white count is also up. The question is whether the patient has endocarditis. The patient's does have a permanent pacemaker implant treated in the past. Echocardiogram is suboptimal and poor study and hence no definite vegetations can be seen but in view of the quality of the study cannot be entirely excluded. Hence would recommend the treat the patient for appropriate course of time and recheck the blood cultures and if they are negative then would consider removing the pacemaker system. The patient is not pacemaker dependent. 2. Acute respiratory failure with hypoxia continue intubation and oxygenation. This is probably secondary to combination of pneumonia/heart failure/ARDS/severe pulmonary hypertension. Patient has been extubated and now is a DNI 3. Recent hypotension patient off Levophed at present blood pressure high. For his hypertension would recommend IV hydralazine every 6 hours at the dose of 10 mg. 4. Supraventricular tachycardia: Would recommend starting the patient on Lopressor 50 mg by the NG tube every 12 hours. 5. History of pulmonary fibrosis 6. Severe pulmonary hypertension: Later would recommend a centimeters. This may be acute phase secondary to the patient's pneumonia versus ARDS versus acute on heart failure versus a combination of all 3. 7. Abnormal chest x-ray congestive heart failure versus ARDS versus pneumonia or combination of all 3. Continue antibiotics 8. Cardiomyopathy with moderately reduced LV ejection fraction of 35 to 40%. Later would transition the patient to long-acting Toprol-XL and ADAMA inhibitor/ARB 9. Coronary artery disease. History of coronary bypass graft surgery. Later would recommend adding the patient's nitrates if blood pressure tolerates it. 10. 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 11. Dementia Medications reviewed medical regimen and management plan discussed with flatwork finisher. Medical decision making is of high complexity. 60 minutes spent with patient with more than 50% time spent in direct patient care. Will follow.
[2019-12-19] MEDS: DAPTOMYCIN IV SCH (18:58)
[2019-12-19] MEDS: NORMAL SALINE IV SCH (18:58)
[2019-12-19] MEDS: LOSARTAN POTASSIUM 50 MG TABLET NG SCH (18:59)
[2019-12-20] MEDS: AMINO AC/PROTEIN HYDR/WHEY PRO 11 GM/45 ML PKT NG SCH ×4 (00:54→21:09)
[2019-12-20] MEDS: INSULIN LISPRO 100 UNIT/ML 3 ML VIAL SUBCUT SCH ×5 (00:57→23:41)
[2019-12-20] MEDS: HYDROCORTISONE SOD SUCCINATE INJ/PF 100 MG/2 ML SDV IV SCH ×3 (05:31→21:22)
--- NOTE | 2019-12-20 10:22 | PDOC CRITICAL CARE PROG REPORT ---
General Date:: 12/20/19 Resuscitation Status: Do Not Intubate - I spoke with at length 2 days ago and again today. She is very clear that he should not be reintubated based on his medical diseases and the progressive dementia. Events in the past 12 to 24 Hours:: 79 yo with both chronic pulmonary fibrosis and a significant cardiomyopathy as well has progressive dementia. He was extubated yesterday after discussion with his . She made him a DNI because the dementia has become quite severe. He initially tolerated extubation fairly well but then developed hypoxia and was placed on BiPAP. He seems to have stabilized somewhat on the BiPAP but is not really coming around any further despite no sedatives. I do not know his baseline before he was intubated but suspect the dementia is a contributing factor now. Physical Exam Vital Signs: Temp Pulse Resp BP Pulse Ox 99.0 F 59 L 21 H 169/72 H 95 12/20/19 08:00 12/20/19 08:00 12/20/19 08:00 12/20/19 08:00 12/20/19 08:00 Intake & Output 12/19/19 12/20/19 12/21/19 06:59 06:59 06:59 Intake Total 3332 878 Output Total 1285 2610 250 Balance 2047 -1732 -250 Weight 107.4 kg 105.4 kg Weight/Height Weight 105.4 kg Height 5 ft 8 in General appearance: PRESENT: mild distress, obese, well-nourished Neck exam: ABSENT: JVD, lymphadenopathy Respiratory exam: PRESENT: rales. ABSENT: accessory muscle use Cardiovascular exam: PRESENT: RRR GI/Abdominal exam: PRESENT: soft. ABSENT: tenderness Extremities exam: PRESENT: +1 edema Neurological exam: PRESENT: altered Skin exam: PRESENT: dry, warm Laboratory/Radiographs Laboratory Results: 12/19/19 06:10 12/19/19 06:10 12/15/19 12:10 Blood Blood Culture (PCR) - Final Staphylococcus Species 12/11/19 12/11/19 12/11/19 18:49 21:40 21:40 Creatine Kinase 71 CK-MB (CK-2) 0.24 Troponin I < 0.012 < 0.012 NT-Pro-B Natriuret Pep 522 H 548 H Impressions: Chest CT 12/13/19 00:00 IMPRESSION: Widespread bilateral groundglass opacity throughout both lungs with smooth interlobular septal thickening and small bilateral pleural effusions, superimposed upon a nonspecific peripheral fibrosis. Overall, differential considerations include pulmonary edema, ARDS, acute interstitial pneumonitis, or potentially a viral pneumonitis. Mediastinal lymphadenopathy, presumably reactive. Main pulmonary arterial enlargement. Correlate for pulmonary hypertension. Moderate dilatation of the mid ascending thoracic aorta measuring 4.5 cm in short axis. TECHNICAL DOCUMENTATION: Quality ID # 436: Final reports with documentation of one or more dose reduction techniques (e.g., Automated exposure control, adjustment of the mA and/or kV according to patient size, use of iterative reconstruction technique) copyright 2011 [employer]- All Rights Reserved KUB X-Ray 12/13/19 09:58 IMPRESSION: Nasogastric tube in the stomach. Chest X-Ray 12/19/19 07:15 IMPRESSION: STABLE APPEARANCE OF THE CHEST. SUPPORT DEVICES UNCHANGED. Assessment and Plan - Diagnosis (1) Respiratory failure with hypoxia Qualifiers: Chronicity: acute on chronic Qualified Code(s): J96.21 - Acute and chronic respiratory failure with hypoxia Is this a current diagnosis for this admission?: Yes Plan: Imp: Extubated but requiring BiPAP Possible aspiration with infiltrate on the left improved Coronavirus testing should be back soon, fever resolved Staph in blood cultures Plan: Continue doxycycline at 100 mg IV every 12 Daptomycin started 3 days ago No new culture results DNI per discussion with Will support with BiPAP 1 more day then discuss with Chest x-ray and labs in the morning Plan Summary: Ceck formal echo, may need milrinone keep weaning FiO2. Critical Time Critical Time (minutes): 25 Level of Care: ICU
[2019-12-20] MEDS: DOXYCYCLINE HYCLATE 100 MG in DEXTROSE 5%-WATER 250 ML IV SCH ×2 (11:30→21:21)
[2019-12-20] MEDS: SENNOSIDES/DOCUSATE 8.6-50 MG 1 EACH TABLET NG SCH ×2 (11:31→18:01)
[2019-12-20] MEDS: FAMOTIDINE INJ/PF 20 MG/2 ML SDV IV SCH ×2 (11:31→21:22)
[2019-12-20] MEDS: POTASSIUM CHLORIDE 20 MEQ PACKET NG SCH (11:31)
[2019-12-20] MEDS: METOPROLOL TARTRATE 50 MG TABLET NG SCH ×2 (11:31→21:08)
[2019-12-20] MEDS: ENOXAPARIN SODIUM INJ 40 MG/0.4 ML DISP.SYRIN SUBCUT SCH (11:32)
[2019-12-20] MEDS: LOSARTAN POTASSIUM 50 MG TABLET NG SCH (18:01)
[2019-12-20] MEDS: NORMAL SALINE IV SCH (18:02)
[2019-12-20] MEDS: INSULIN GLARGINE,HUM.REC.ANLOG 1,000 UNIT/10 ML VIAL SUBCUT SCH (18:02)
[2019-12-20] MEDS: DAPTOMYCIN IV SCH (18:02)
[2019-12-20] MEDS: MORPHINE SULFATE 10 MG/ML INJ IV PRN (21:22)
[2019-12-21] MEDS: MORPHINE SULFATE 10 MG/ML INJ IV PRN ×5 (01:12→15:17)
[2019-12-21] MEDS: HYDROCORTISONE SOD SUCCINATE INJ/PF 100 MG/2 ML SDV IV SCH (06:10)
[2019-12-21] MEDS: INSULIN LISPRO 100 UNIT/ML 3 ML VIAL SUBCUT SCH (06:10)
[2019-12-21] MEDS: AMINO AC/PROTEIN HYDR/WHEY PRO 11 GM/45 ML PKT NG SCH (06:11)
[2019-12-21] MEDS ORDERED: MORPHINE SULFATE 10 MG/ML INJ IV ONE (09:07)
[2019-12-21] MEDS ORDERED: LORAZEPAM INJ 2 MG/1 ML VIAL IV ONE (09:09)
[2019-12-21] MEDS: SENNOSIDES/DOCUSATE 8.6-50 MG 1 EACH TABLET NG SCH (10:02)
[2019-12-21] MEDS: FAMOTIDINE INJ/PF 20 MG/2 ML SDV IV SCH (10:02)
[2019-12-21 10:42] VITALS: BP 138/86
[2019-12-21] MEDS ORDERED: ACETAMINOPHEN 650 MG SUPP.RECT PR PRN (11:44)
[2019-12-21] MEDS: LORAZEPAM INJ 2 MG/1 ML VIAL IV PRN ×2 (12:32→15:16)
--- NOTE | 2019-12-21 17:27 | Death Summary ---
Summary Date : 12/21/19 Time of :: 16:46 Autopsy: No Resuscitation Status: Do Not Resuscitate Primary Care Provider: Lexy Consulting Provider: Test Manager - Final Diagnosis (1) Respiratory failure with hypoxia Is this a current diagnosis for this admission?: Yes Hospital Course:: 79-year-old white male admitted on 12/10 with an acute febrile respiratory illness. He was known to have both pulmonary fibrosis and an ischemic cardiomyopathy with a low ejection fraction. He required intubation and was treated aggressively. Actually, he seemed to recover from the initial illness with his white count coming down, fever resolving and improved gas exchange. He did grow coag negative staph from his blood on admission in 2 bottles and then again from his central line several days later. He was started on daptomycin for the concern that his pacemaker lead may have been infected. Echo added little. Cardiology was consulted and agreed with therapy. When he was weaned down enough to consider extubation, I contacted his . I had already spoken to her about end-of-life issues in this patient and she consulted with her children after that first discussion. She was very clear at the time of extubation 2 days ago that he would not be a candidate for reintubation. He initially did well off the vent but then required BiPAP because of recurrent hypoxia. He could not be weaned off the BiPAP and his gas exchange continued to deteriorate. This morning I summoned his again and we discussed the fact that he would not recover without putting him back on a ventilator and that his overall prognosis remained very poor. He also had severe underlying dementia which had been progressive recently. She remained adamant that he should not be intubated as per the discussion 2 days previously. At that point, we agreed to take him off the BiPAP and keep him comfortable. He quietly this afternoon with her at the bedside. Time today over 30 minutes.
== END 2019-12-21 18:32 | DRG 207 ==
LOC: ER 18:25 → EH 20:18 → 5 23:21 → ICU 12-13 09:13
PROVIDERS: ADMIT Anesthesiology; ATTEND Anesthesiology
PROC: 5A1955Z Respiratory Ventilation, Greater than 96 Consecutive Hours (ICD-10-PCS; principal; 2019-12-13)
PROC: 0BH17EZ Insertion of Endotracheal Airway into Trachea, Via Natural or Artificial Opening (ICD-10-PCS; 2019-12-13)
PROC: 02HV33Z Insertion of Infusion Device into Superior Vena Cava, Percutaneous Approach (ICD-10-PCS; 2019-12-13)
DX: J18.9 Pneumonia, unspecified organism (principal); J96.21 Acute and chronic respiratory failure with hypoxia; I50.43 Acute on chronic combined systolic (congestive) and diastolic (congestive) heart failure; T82.7XXA Infection and inflammatory reaction due to other cardiac and vascular devices, implants and grafts, initial encounter; I47.1 Supraventricular tachycardia; J84.10 Pulmonary fibrosis, unspecified; Z99.81 Dependence on supplemental oxygen; E78.5 Hyperlipidemia, unspecified; I25.10 Atherosclerotic heart disease of native coronary artery without angina pectoris; E11.9 Type 2 diabetes mellitus without complications; I25.5 Ischemic cardiomyopathy; F32.9 Major depressive disorder, single episode, unspecified; F02.80 Dementia in other diseases classified elsewhere, unspecified severity, without behavioral disturbance, psychotic disturbance, mood disturbance, and anxiety; G30.9 Alzheimer's disease, unspecified; I27.20 Pulmonary hypertension, unspecified; I73.9 Peripheral vascular disease, unspecified; E66.9 Obesity, unspecified; I25.2 Old myocardial infarction; Z95.1 Presence of aortocoronary bypass graft; Z87.891 Personal history of nicotine dependence; Z79.4 Long term (current) use of insulin; Z79.82 Long term (current) use of aspirin; Z79.899 Other long term (current) drug therapy; Z95.0 Presence of cardiac pacemaker; Z78.1 Physical restraint status; Z66 Do not resuscitate; Y83.8 Other surgical procedures as the cause of abnormal reaction of the patient, or of later complication, without mention of misadventure at the time of the procedure
CPT/HCPCS: 31500; 36415; 36556; 36600; 36620; 71045; 71250; 74018; 80048; 80053; 81001; 82330; 82533; 82550; 82553; 82803; 82962; 83036; 83605; 83735; 83880; 84100; 84484; 85025; 85610; 87040; 87070; 87077; 87086; 87150; 87186; 87205; 87635; 87804; 87880; 93005; 93010; 93306; 94002; 94003; 94640; 94660; 99232; 99233; 99239; 99285; 99291; B4155; C1887; J0131; J0330; J0696; J0878; J1170; J1642; J1650; J1720; J1815; J1940; J1956; J2060; J2250; J2270; J2704; J2930; J3010; J3370; J3490; J7030; J7060; J7120; J7620; S0028